=== PATIENT | male | born 1970 | race Caucasian/White ===

== ENCOUNTER 2018-04-05 14:04 | Emergency (ER) | payer MEDICAID, OTHER ==
[2018-04-05 15:17] VITALS: BP 161/102
--- NOTE | 2018-04-05 15:33 | UC ---
Lower Extremity/Ankle HPI - HPI Summary HPI Summary: 47 YO male who has noted LE edema x a week...worse the past few days Has had some cough Some slightly increased dyspnea on exertion no CP feverish about a week ago no myalgias - History of Current Complaint Chief Complaint: UCGeneralIllness Stated Complaint: SWOLLEN LEGS, FLU-LIKE SYMPTOMS Time Seen by Provider: 04/05/18 15:04 Hx Obtained From: Patient Onset/Duration: Gradual Onset, Lasting Days Severity Initially: Mild Severity Currently: Moderate Pain Intensity: 8 - chronic pain Pain Scale Used: 0-10 Numeric Aggravating Factor(s): Nothing Alleviating Factor(s): Elevation Able to Bear Weight: Yes - Allergies/Home Medications Allergies/Adverse Reactions: Allergies Allergy/AdvReac Type Severity Reaction Status Date / Time Sulfa (Sulfonamide Allergy Anaphylatic Verified 04/05/18 15:07 Antibiotics) Shock Home Medications: Home Medications Albuterol HFA INHALER* [Ventolin HFA Inhaler*] 1 puff INH Q4H PRN 04/05/18 [ History Confirmed 04/05/18] Cyclobenzaprine TAB* [Flexeril 10 MG TAB*] 10 mg PO TID PRN 04/05/18 [History Confirmed 04/05/18] Folic Acid [Kp Folic Acid] 1 mg PO DAILY 04/05/18 [History Confirmed 04/05/18] Nadolol [Corgard] 20 mg PO DAILY 04/05/18 [History Confirmed 04/05/18] Naproxen [Naprosyn 500 mg tab] 500 mg PO Q12H PRN 04/05/18 [History Confirmed ] Zolpidem Tartrate [Ambien] 10 mg PO BEDTIME PRN 04/05/18 [History Confirmed 11/14] PMH/Surg Hx/FS Hx/Imm Hx Previously Healthy: No Cardiovascular History: Hypertension Respiratory History: Asthma, Pneumonia GI/ History: Gastroesophageal Reflux, Kidney Stones Neurological History: Migraine Other History Of: Negative For: Anticoagulant Therapy - Surgical History Surgical History: Yes Surgery Procedure, Year, and Place: 1999-left knee mcl/acl reconstruction, L femur surgery. [id number]- multiple kidney stone procedures. 2006-gastric bypass - Family History Known Family History: Positive: Cardiac Disease, Hypertension, Renal Disease - Social History Alcohol Use: Rare Substance Use Type: Marijuana Smoking Status (MU): Current Every Day Smoker Type: Cigarettes Amount Used/How Often: 1/2 - 1 ppd Have You Smoked in the Last Year: Yes Cessation Counseling: Patient Advised to Stop - Immunization History Most Recent Influenza Vaccination: never Most Recent Tetanus Shot: 4-5 yrs Most Recent Pneumonia Vaccination: 5 yrs Review of Systems All Other Systems Reviewed And Are Negative: Yes Constitutional: Positive: Fatigue Skin: Positive: Negative Eyes: Positive: Negative ENT: Positive: Negative Respiratory: Positive: Cough Cardiovascular: Positive: Negative Gastrointestinal: Positive: Negative Genitourinary: Positive: Negative Motor: Positive: Negative Neurovascular: Positive: Negative Musculoskeletal: Positive: Edema Neurological: Positive: Negative Psychological: Positive: Negative Physical Exam Triage Information Reviewed: Yes Appearance: Well-Appearing, No Pain Distress, Well-Nourished Vital Signs: Initial Vital Signs Temp 97.6 F 04/05/18 15:07 Pulse 76 04/05/18 15:07 Resp 20 04/05/18 15:07 BP 161/102 04/05/18 15:07 Pulse Ox 95 04/05/18 15:07 Vital Signs Reviewed: Yes Eyes: Positive: Conjunctiva Clear ENT: Positive: Hearing grossly normal, TMs normal. Negative: Nasal congestion, Nasal drainage, Tonsillar swelling, Tonsillar exudate, Trismus, Hoarse voice, Dental tenderness, Sinus tenderness, Uvula midline Dental: Negative: Abscess @ Neck: Positive: Supple, Nontender, No Lymphadenopathy Respiratory: Positive: No respiratory distress, No accessory muscle use, Wheezing - few scatterred Cardiovascular: Positive: RRR, No Murmur Abdomen Description: Positive: Nontender, No Organomegaly, Soft. Negative: Bruit, CVA Tenderness (R), CVA Tenderness (L), Distended Bowel Sounds: Positive: Present Musculoskeletal: Positive: Edema @ - pre tibial/pitting Neurological: Positive: Alert Psychological Exam: Normal Skin Exam: Normal Diagnostics - Laboratory Diagnostic Studies Completed/Ordered: UA +++ protein - Radiology No standard instances Radiology Interpretation Completed By: Radiologist Summary of Radiographic Findings: NAD Lower Extremity Course/Dx - Differential Dx/Diagnosis Provider Diagnosis: Peripheral edema, Hypertension, Proteinuria, Smoker Discharge - Sign-Out/Discharge Documenting (check all that apply): Patient Departure All imaging exams completed and their final reports reviewed: Yes - Discharge Plan Condition: Stable Disposition: HOME Patient Education Materials: Leg Edema (ED) Referrals: Mariela Holder MD [Primary Care Provider] - As Soon As Possible Additional Instructions: stop your naproxen you have +++ protein in your urine take lasix every day for 3 days blood work pending - Billing Disposition and Condition Condition: STABLE Disposition: Home
[2018-04-05 18:33] LABS: ABS Basophils 0 10^3/ul (0-0.2); ABS Eosinophils 0.5 10^3/ul (0-0.6); ABS Lymphocytes 1.1 10^3/ul (1.0-4.8); ABS Monocytes 0.5 10^3/ul (0-0.8); ABS Nucleated RBC 0 10^3/ul; Eosinophil % 6.5 %; Hematocrit 35 % (42-52); Hemoglobin 11.7 g/dl (14.0-18.0); Mean Corpuscular HGB Conc 33 g/dl (31-36); Mean Corpuscular Hemoglobin 28 pg (27-31); Mean Corpuscular Volume 85 fL (80-94); Mean Platelet Volume 7.4 fL (7.4-10.4); Nucleated Red Blood Cells % 0; Platelet Count 444 10^3/ul (150-450); Red Blood Count 4.14 10^6/ul (4.00-5.40); Red Cell Distribution Width 18 % (10.5-15); White Blood Count 8.1 10^3/ul (3.5-10.8)
[2018-04-05 18:45] LABS: EGFR Non-African American 48.8 (>60)
--- NOTE | 2018-04-06 07:50 | UC ---
- Progress Note Progress Note: Lab work from April 05, 2018 comes back showing the patient being mildly anemic with hemoglobin of 11.7. Patient was not anemic on his last lab work I have access to which was in 2012. Creatinine is slightly elevated at 1.53. In 2013 Creatinine was normal. I have no more recent lab values. Nursing to call patient and informed him of the results and the importance of following up as soon as possible with his primary care physician to have all of this rechecked. Course/Dx - Diagnoses Provider Diagnoses: Peripheral edema, Hypertension, Proteinuria, Smoker Discharge - Sign-Out/Discharge Documenting (check all that apply): Patient Departure All imaging exams completed and their final reports reviewed: Yes - Discharge Plan Condition: Stable Disposition: HOME Prescriptions: Furosemide TAB* [Lasix TAB*] 20 mg PO DAILY #3 tab Patient Education Materials: Leg Edema (ED) Forms: *Work Release Referrals: Mariela Holder MD [Primary Care Provider] - As Soon As Possible Additional Instructions: stop your naproxen you have +++ protein in your urine take lasix every day for 3 days blood work pending - Billing Disposition and Condition Condition: STABLE Disposition: Home
== END 2018-04-05 16:15 | disposition home or self-care (01) ==
LOC: UCEAST 14:04
DX: R60.0 Localized edema (principal); I10 Essential (primary) hypertension; R80.9 Proteinuria, unspecified; J45.909 Unspecified asthma, uncomplicated; Z88.2 Allergy status to sulfonamides; F17.210 Nicotine dependence, cigarettes, uncomplicated
CPT/HCPCS: 36415; 71046; 80053; 81003; 85025; 99202; G0463

== ENCOUNTER 2019-03-01 06:30 | Inpatient (IN) | payer OTHER ==
[2019-03-01] MEDS ORDERED: Albuterol/Ipratropium NEB.SOL* Albuterol 2.5 MG/Ipratropium 0.5 MG 3 ML INH PRN ×2 (06:58→19:01)
[2019-03-01] MEDS ORDERED: NS 0.9% 500 ML* 500 ML IV ONE (07:05)
--- NOTE | 2019-03-01 07:09 | ED ---
Abdominal Pain/Male - HPI Summary HPI Summary: 48-year-old male patient appearing older than stated age presents via EMS with acute abdominal pain that woke him from sleep this morning. He reports pain starts in his groin and goes all the way up to his shoulders. He's had pain like this before however reports passing gas typically helps and he has not been able to do this yet - tried walking which typically helps but not relief. Denies fevers, chills, nausea, vomiting, diarrhea, however he then states he does vomit - mostly phlegmy emesis and gagging since bariatric surgery - does not vomit food. Last BM was yesterday however he does admit to constipation, sometimes only moving his bowels once a week. Also reports he takes up to 60 mg of oxycodone a day for migraine prophylaxis and has been on this regimen for "quite some time". In his words, has become dependent. Also reports he's been urinating well without frequency or difficulty and denies flank pain but reports "I feel dehydrated". Admits she's had "flulike symptoms" over the past couple of weeks. This includes feeling rundown and a cough, productive. Female leather stretcher says he should have come into the doctor but he thouhgt he was getting better so decided not to seek medical care. Recently he is also experienced shortness of breath with exertion. Medical visit from last year reveals similar symptoms however he had fluid in his lower extremities at that time and has not experienced any swelling recently. Other medical issues include hypertension. He has not taken his meds this morning and admits he may have missed a few doses this week. He does not recall his medications but believes he takes lisinopril. Furthermore, he has failing renal function however was recently told that this plateaued. He is unsure of what is caused this but does admit to a history of NSAID use. He also takes Lasix as he was found to have fluid in his lower extremities last year. He is unsure if he has CHF and reports he has not had an EKG since his bariatric surgery in 2006 - had gallbladder removed at that time as well - no complications since. He also has asthma and has used his albuterol inhaler with cough recently which is helped some. Does not use oxygen at home despite low pulse ox here - low 90s and high 80s on room air. Was on nasal cannula and still only low 90s high 80s so switched to mask where he has improved to 95%. He also reports he recently ran out of anxiety medication, Lorazepam - takes 1 mg up to 4 x day but only PRN (not a daily med). Typically smokes cigarettes daily and marijuana most days. The latter he reports helps with his anxiety and pain from recent hand injury -had an open fx of his Rt index finger repaired by Dr. Casanova. Pin in place and wearing splint but reports this is healing well - no erythema, no swelling, no d/c. - History of Current Complaint Chief Complaint: EDAbdPain Stated Complaint: STOMACH PAIN PER EMS Time Seen by Provider: 03/01/19 06:42 Hx Obtained From: Patient, Family/Chief Dog License Inspector - female leather stretcher - Preethi Pain Intensity: 9 - Allergies/Home Medications Allergies/Adverse Reactions: Allergies Allergy/AdvReac Type Severity Reaction Status Date / Time Sulfa (Sulfonamide Allergy Anaphylatic Verified 04/05/18 15:07 Antibiotics) Shock PMH/Surg Hx/FS Hx/Imm Hx Previously Healthy: No Endocrine/Hematology History: Reports: Hx Anemia Denies: Hx Anticoagulant Therapy, Hx Blood Disorders, Hx Blood Transfusions, Hx Bone Marrow Disease, Hx Diabetes, Hx Systemic Lupus Erythematosus, Hx Sickle Cell Disease, Hx Thyroid Disease, Hx Unexplained Bleeding, Other Endocrine/ Hematological Disorders Cardiovascular History: Reports: Hx Hypertension - on meds, Other Cardiovascular Problems/Disorders - LE edema of unknown cause Respiratory History: Reports: Hx Asthma Denies: Hx Chronic Bronchitis, Hx Chronic Obstructive Pulmonary Disease (COPD ), Hx Cystic Fibrosis, Hx Lung Cancer, Hx Pleural Effusion, Hx Pneumonia, Hx Pulmonary Edema, Hx Pulmonary Embolism, Hx Seasonal Allergies, Hx Sleep Apnea, Other Respiratory Problems/Disorders GI History: Reports: Hx Gall Bladder Disease - cholecystectomy 2006, Hx Gastroesophageal Reflux Disease, Hx Irritable Bowel - from gastric bypass, Other GI Disorders - s/p Bariatric surgery in 2006 Denies: Hx Cirrhosis, Hx Crohn's Disease, Hx Diverticulosis, Hx Gastrointestinal Bleed, Hx Hiatal Hernia, Hx Jaundice, Hx Obstructive Bowel, Hx Ileostomy, Hx Pyloric Stenosis, Hx Ulcer History: Reports: Hx Kidney Stones Denies: Hx Acute Renal Failure, Hx Benign Prostatic Hyperplasia, Hx Chronic Renal Failure, Hx Dialysis, Hx Kidney Infection, Other Problems/Disorders Musculoskeletal History: Reports: Hx Arthritis - knees, hips, and joints, Hx Back Problems - lower and upper back pain Denies: Hx Bursitis, Hx Congenital Bone Abnormalities, Hx Fibromyalgia, Hx Gout, Hx Orthopedic Injury, Hx Osteoporosis, Hx Scoliosis, Hx Tendonitis Sensory History: Reports: Hx Contacts or Glasses, Other Sensory Impairments Denies: Hx Cataracts, Hx Eye Injury, Hx Eye Prosthesis, Hx Glaucoma, Hx Legally Blind, Hx Macular Degeneration, Hx Vision Problem, Hx Deafness, Hx Hearing Aid, Hx Hearing Problem Opthamlomology History: Reports: Hx Contacts or Glasses, Other Sensory Impairments Denies: Hx Cataracts, Hx Eye Injury, Hx Eye Prosthesis, Hx Glaucoma, Hx Legally Blind, Hx Macular Degeneration, Hx Vision Problem Neurological History: Reports: Hx Migraine - daily opiates for prophylaxis Denies: Hx Dementia, Hx Developmental Delay, Hx Nerve Disease, Hx Seizures, Hx Spinal Cord Injury, Hx Transient Ischemic Attacks (TIA), Other Neuro Impairments/Disorders Psychiatric History: Reports: Hx Anxiety - on lorazepam, Other Psychiatric Issues/Disorders - opiate dependence, physician rx'd Denies: Hx Attention Deficit Hyperactivity Disorder, Hx Eating Disorder, Hx Depression, Hx Panic Disorder, Hx Post Traumatic Stress Disorder, Hx Inpatient Treatment, Hx Community Mental Health Tx, Hx Schizophrenia, Hx Bipolar Disorder , Hx Suicide Attempt, Hx of Violent Episodes Against Others, Hx Substance Abuse - Surgical History Surgery Procedure, Year, and Place: 1999-left knee mcl/acl reconstruction, L femur surgery. [id number]- multiple kidney stone procedures. 2006-gastric bypass + cholecystectomy Hx Anesthesia Reactions: No Infectious Disease History: No Infectious Disease History: Denies: Hx Hepatitis, Hx Tuberculosis, History Other Infectious Disease, Traveled Outside the [place] in Last 30 Days - Family History Known Family History: Positive: Cardiac Disease, Hypertension, Renal Disease - Social History Alcohol Use: Rare Substance Use Type: Reports: Marijuana Smoking Status (MU): Current Every Day Smoker Type: Cigarettes Amount Used/How Often: 1/2 - 1 ppd Have You Smoked in the Last Year: Yes Review of Systems Constitutional: Negative Negative: Fever, Chills, Fatigue Eyes: Negative ENT: Negative Cardiovascular: Negative Respiratory: Other - BEARD Positive: Cough Positive: Abdominal Pain. Negative: Vomiting, Diarrhea, Nausea Genitourinary: Negative Musculoskeletal: Negative Negative: Edema Skin: Negative Neurological: Negative Positive: Anxious - mild All Other Systems Reviewed And Are Negative: Yes Physical Exam Triage Information Reviewed: Yes Vital Signs On Initial Exam: Initial Vitals Temp Pulse Resp BP Pulse Ox 96.5 F 113 22 182/121 90 03/01/19 06:38 03/01/19 06:38 03/01/19 06:38 03/01/19 06:38 03/01/19 06:38 Vital Signs Reviewed: Yes Appearance: Positive: Pain Distress - appears uncomfortable Skin: Positive: Warm, Dry, Other - generalized pallor - lips dry and cracked; abrasion to pinna and bandage/splint on RT hand - removed and reveals healing scar tissue on Rt index finger (NOTE: previous area of fracture - no erythema, no edema, no streaking, no drainage) Head/Face: Positive: Normal Head/Face Inspection Eyes: Positive: Normal, EOMI, RANDI, Conjunctiva Clear Neck: Positive: Supple, Nontender Respiratory/Lung Sounds: Positive: Decreased Breath Sounds - difficult to say if from poor effort as pt is breathing normally but deep breathes are not heard well and this triggers pain. Negative: Stridor, Tracheal Deviation, Wheezes, Unable to speak in full sentences, Fatigue Cardiovascular: Positive: RRR, Pulses are Symmetrical in both Upper and Lower Extremities, S1, S2. Negative: Murmur, Rub, Leg Edema Left, Leg Edema Right Abdomen Description: Positive: Guarding, Other: - tender throughout Bowel Sounds: Positive: Absent Musculoskeletal: Positive: Normal, Strength/ROM Intact Neurological: Positive: Normal, Sensory/Motor Intact, Alert, Oriented to Person Place, Time, CN Intact II-III Psychiatric: Positive: Normal - pleasant, good historian, concerned but calm and cooperative, appropriate affect - Artur Coma Scale Best Eye Response: 4 - Spontaneous Best Motor Response: 6 - Obeys Commands Best Verbal Response: 5 - Oriented Coma Scale Total: 15 Diagnostics - Vital Signs Vital Signs Temp Pulse Resp BP Pulse Ox 03/01/19 06:38 96.5 F 113 22 182/121 90 - Laboratory Result Diagrams: 03/01/19 06:59 03/01/19 06:58 Lab Statement: Any lab studies that have been ordered have been reviewed, and results considered in the medical decision making process. Re-Evaluation - Re-Evaluation First Eval Change: Unchanged - dilaudid 1mg no change in sx Second Eval Change: Improved - pain relief w/ 2mg dialudid however this wore off abruptly - additional 2mg ordered and pt had relief again Abdominal Pain Male Course/Dx - Course Course Of Treatment: 48-year-old male patient appearing older than stated age presents with acute abdominal pain that woke him from sleep this morning. He reports this radiates from his groin all the way up to her shoulders. Other details as in history of present illness. Exam reveals guarded, rigid abdomen and poor respiratory effort due to abdominal pain but no john shortness of breath or fatigue. Initial concerns with low pulse ox and fear of overloading the patient with fluid due to pt reported poor renal function and taking Lasix without a clear history of why he is taking Lasix but believed his heart is okay. After discovering elevated white blood cell count and low BNP in the face of dry mucous membranes, tachycardia, proceeded with sepsis protocol of 30 cc/kg of IV fluids (some of this is being supplemented with bariatric protocol as patient had bariatric surgery in 2006 at admits to frequent vomiting - labs also indicate low albumin and protein levels). Broad spectrum IV anbx also ordered. CXR reveals free air - CT was called at 8:10am and requesting STAT exam w/o contrast d/t updated findings (NOTE: BUN 24, Creat 2.43). Cancelled duoneb. His first round of 1mg dilaudid was ineffective for pain relief so ordered 2mg. Discussed case with Dr. Cook. CT pending for final report before calling surgery. UPDATE 9:18am: 2MG DILAUDID reduced pain. Unfortunately pain returned and ordered an additional 2mg as pt tolerated well. Remains on 0. UPDATE: 9:36a. CT report Impression: #1 limited unenhanced exam remarkable for significant free intra-peritoneal air and moderate ascites of uncertain etiology. #2 postsurgical change of Sunny-en-Y gastric bypass and cholecystectomy. #3 probable mild colonic diverticulosis. No focal inflamed diverticulum identified. #4 retrocecal appendix contains a long segment calcified appendicolith. No gross dilatation of the appendix evident. #5 Small left greater than right dependent pleural effusions and bibasilar patchy airspace consolidation and suggestion of retained secretions of the airways. Call out to Dr. Sloan - returned call at 10:40am - will be down to see pt. Last PO intake: 6am - water and soda (6+ oz) - last solid: mashed potatoes 17: 00 last night. No known bleeding d/o and H&H stable today - will get type and screen for pre-op. ECG: sinus tachycardia @ 118 bpm, prolonged QT interval, Lt axis deviation. Asthma - no O2 use at home - controlled w/ albuterol PRN. Renal failure: BUN 25, Creat 2.43 (1.53 in 2018 - could be significantly worse today from dehydration). H/o anesthesia many times - no issues per pt. NOTE: bariatric status since 2006 - lost to follow-up and poor nutrition since - sometimes teeth fall out. Otherwise, no dental prosthetics. Pt admitted by Dr. Sloan for surgery - in stable condition at time of transition of care - Diagnoses Provider Diagnoses: Peritoneal free air Discharge ED - Sign-Out/Discharge Documenting (check all that apply): Patient Departure - Discharge Plan Condition: Guarded Disposition: ADMITTED TO [facility] - Billing Disposition and Condition Condition: GUARDED Disposition: Admitted to [facility]
[2019-03-01 07:32] LABS: ABS Basophils 0.1 10^3/ul (0-0.2); ABS Eosinophils 0.2 10^3/ul (0-0.6); ABS Lymphocytes 0.6 10^3/ul (1.0-4.8); ABS Monocytes 0.6 10^3/ul (0-0.8); ABS Neutrophils 14.9 10^3/ul (1.5-7.7); Eosinophil % 1.3 %; Hematocrit 37 % (42-52); Hemoglobin 12.2 g/dL (14.0-18.0); Lymphocyte % 3.8 %; Mean Corpuscular HGB Conc 33 g/dL (31-36); Mean Corpuscular Hemoglobin 29 pg (27-31); Mean Corpuscular Volume 87 fL (80-94); Mean Platelet Volume 6.9 fL (7.4-10.4); Nucleated Red Blood Cells % 0.1; Platelet Count 592 10^3/uL (150-450); Red Cell Distribution Width 14 % (10-15); White Blood Count 16.3 10^3/uL (3.5-10.8)
[2019-03-01] MEDS ORDERED: Simethicone TAB* 80 MG TAB.CHEW PO ONE (07:33)
[2019-03-01 07:34] LABS: Activated Partial Thrombo Time 31.5 seconds (26.0-38.0); INR 1.03 (0.82-1.09)
[2019-03-01] MEDS ORDERED: HYDROmorphone INJ* 0.5 MG/0.5 ML SYRINGE IV ONE ×4 (07:39→10:10)
[2019-03-01] MEDS ORDERED: metroNIDAZOLE IV 500 MG/100ML* 500 MG/100 ML BAG IVPB ONE (07:42)
[2019-03-01] MEDS ORDERED: Ciprofloxacin 400MG IVPREMIX(* 400 MG/200 ML BAG IVPB ONE (07:48)
[2019-03-01] MEDS ORDERED: Thiamine IV 100 MG, Folic Acid IV* 1 MG, Multiple Vitamin IV ADULT* 10 ML in NS 0.9% 10... IV ONE ×2 (07:48→08:14)
[2019-03-01 07:52] LABS: Albumin 2.5 g/dL (3.2-5.2); Calcium 7.7 mg/dL (8.6-10.3); Potassium 3.3 mmol/L (3.5-5.0); Total Bilirubin 0.3 mg/dL (0.2-1.0)
[2019-03-01 07:58] LABS: BUN/Creatinine Ratio 10.3 (8-20); C Reactive Protein 59.56 mg/L (<8.01); EGFR African American 34.5 (>60); EGFR Non-African American 28.5 (>60); Globulin 2.6 g/dL (2-4); Total Protein 5.1 g/dL (6.4-8.9)
[2019-03-01] MEDS ORDERED: Vancomycin(*) 1,000 MG VIAL IVPB SCH (08:00)
[2019-03-01] MEDS ORDERED: Vancomycin(*) 1,250 MG IV x ONCE IVPB ONE ×2 (08:00)
[2019-03-01] MEDS: NS 0.9% 1000 ML** 1,000 ML IV.FLUID IV ONE ×2 (08:00→10:06)
[2019-03-01] MEDS ORDERED: oxyCODONE/Acetamin 5/325 MG* TAB PO PRN (10:40)
--- NOTE | 2019-03-01 11:54 | HP ---
H&P (Free Text) History and Physical: CC: abdominal pain HPI: 48 yo M h/o lap gastric bypass, nephrolithiasis, HTN, anxiety, migraine, chronic opioid use, recurrent "gas bubble" pain presented to ED with severe lower abdominal pain radiating upwards and both shoulders. Pain awoke him from sleep this morning. He's had pain like this before however reports passing gas typically helps and he has not been able to do this yet - tried walking which typically helps but no relief. Denies fevers, chills, nausea, vomiting, diarrhea, constipation. Recent "flulike symptoms" over the past couple of weeks. This includes feeling rundown and a cough, productive. PMH: as above. Also has renal disease for which he sees Laboratory Sample Carrier at [place]. PSH: approximately 23 cysto/stent/lithotripsy procedures, last in 2011. LRYGB and lap anne 2006 (Dariusz Gonzalez--Dr. Campa) Meds: pt cannot recall all. Percocet 10/325 q4h prn migraine. Lisinopril. Lasix. All: sulfa SH: +tob/MJ daily; rare EtOH FH: Cardiac Disease, Hypertension, Renal Disease ROS: Constitutional: Negative: Fever, Chills, Fatigue Eyes: glasses ENT: Negative Cardiovascular: Negative Respiratory: Other - BEARD; Positive: Cough Genitourinary: Negative hematuria/dysuria; renal disease. Musculoskeletal: recent right index finger crush injury (Dr. Casanova managing) Neurological: Migraines. All Other Systems Reviewed And Are Negative PE: Vital Signs Temp 96.5 F 03/01/19 06:38 Pulse 118 03/01/19 10:19 Resp 18 03/01/19 10:14 BP 150/107 03/01/19 10:19 Pulse Ox 98 03/01/19 10:19 Intake & Output 02/28/19 03/01/19 03/01/19 18:59 06:59 18:59 Intake Total 1510 Balance 1510 Weight 170 lb Intake: IV Fluids 1510 Gen: Appears in NAD HEENT: NCAT; anicteric sclera; mmm; no amisha/rhinorrhea; poor dentition; abrasion right ear helix Neck: supple no CHAYA Chest: CTA B; reg s1s2, tachy Abd: redundant skin; no visible scars; rigid and diffusely tender; no BS. Ext: R hand splint; no cyanosis or edema. Laboratory Results - last 24 hr 03/01/19 03/01/19 03/01/19 06:58 06:58 06:59 WBC 16.3 H RBC 4.20 Hgb 12.2 L Hct 37 L MCV 87 MCH 29 MCHC 33 RDW 14 Plt Count 592 H MPV 6.9 L Neut % (Auto) 91.0 Lymph % (Auto) 3.8 Long % (Auto) 3.4 Eos % (Auto) 1.3 Baso % (Auto) 0.5 Absolute Neuts (auto) 14.9 H Absolute Lymphs (auto) 0.6 L Absolute Monos (auto) 0.6 Absolute Eos (auto) 0.2 Absolute Basos (auto) 0.1 Absolute Nucleated RBC 0.0 Nucleated RBC % 0.1 INR (Anticoag Therapy) APTT Patient Temperature ABG pH ABG pH (Temp Correct) ABG pCO2 ABG pCO2 (Temp Corrct ABG pO2 ABG pO2 (Temp Correct ABG HCO3 ABG O2 Saturation ABG Base Excess Respiration Rate O2 Delivery Device Ventilator Type Vent Mode FiO2 Inspiratory Time PEEP Pressure Support Pressure Control EPAP IPAP BiPAP Sodium 133 L Potassium 3.3 L Chloride 101 Carbon Dioxide 21 L Anion Gap 11 BUN 25 H Creatinine 2.43 H Est GFR ( Amer) 34.5 Est GFR (Non-Af Amer) 28.5 BUN/Creatinine Ratio 10.3 Glucose 140 H Lactic Acid Calcium 7.7 L Total Bilirubin 0.30 AST 16 ALT 10 Alkaline Phosphatase 94 C-Reactive Protein 59.56 H B-Natriuretic Peptide 139 H Total Protein 5.1 L Albumin 2.5 L Globulin 2.6 Albumin/Globulin Ratio 1.0 03/01/19 03/01/19 03/01/19 06:59 06:59 07:25 WBC RBC Hgb Hct MCV MCH MCHC RDW Plt Count MPV Neut % (Auto) Lymph % (Auto) Long % (Auto) Eos % (Auto) Baso % (Auto) Absolute Neuts (auto) Absolute Lymphs (auto) Absolute Monos (auto) Absolute Eos (auto) Absolute Basos (auto) Absolute Nucleated RBC Nucleated RBC % INR (Anticoag Therapy) 1.03 APTT 31.5 Patient Temperature Not Reportable ABG pH 7.40 ABG pH (Temp Correct) Not Reportable ABG pCO2 31 L ABG pCO2 (Temp Corrct Not Reportable ABG pO2 86 ABG pO2 (Temp Correct Not Reportable ABG HCO3 21.4 ABG O2 Saturation 100.0 H ABG Base Excess -4.5 L Respiration Rate Not Reportable O2 Delivery Device 10lpm oxymask Ventilator Type Not Reportable Vent Mode Not Reportable FiO2 Not Reportable Inspiratory Time Not Reportable PEEP Not Reportable Pressure Support Not Reportable Pressure Control Not Reportable EPAP Not Reportable IPAP Not Reportable BiPAP Not Reportable Sodium Potassium Chloride Carbon Dioxide Anion Gap BUN Creatinine Est GFR ( Amer) Est GFR (Non-Af Amer) BUN/Creatinine Ratio Glucose Lactic Acid 1.1 Calcium Total Bilirubin AST ALT Alkaline Phosphatase C-Reactive Protein B-Natriuretic Peptide Total Protein Albumin Globulin Albumin/Globulin Ratio 03/01/19 11:03 WBC RBC Hgb Hct MCV MCH MCHC RDW Plt Count MPV Neut % (Auto) Lymph % (Auto) Long % (Auto) Eos % (Auto) Baso % (Auto) Absolute Neuts (auto) Absolute Lymphs (auto) Absolute Monos (auto) Absolute Eos (auto) Absolute Basos (auto) Absolute Nucleated RBC Nucleated RBC % INR (Anticoag Therapy) APTT Patient Temperature ABG pH ABG pH (Temp Correct) ABG pCO2 ABG pCO2 (Temp Corrct ABG pO2 ABG pO2 (Temp Correct ABG HCO3 ABG O2 Saturation ABG Base Excess Respiration Rate O2 Delivery Device Ventilator Type Vent Mode FiO2 Inspiratory Time PEEP Pressure Support Pressure Control EPAP IPAP BiPAP Sodium Potassium Chloride Carbon Dioxide Anion Gap BUN Creatinine Est GFR ( Amer) Est GFR (Non-Af Amer) BUN/Creatinine Ratio Glucose Lactic Acid 1.1 Calcium Total Bilirubin AST ALT Alkaline Phosphatase C-Reactive Protein B-Natriuretic Peptide Total Protein Albumin Globulin Albumin/Globulin Ratio CT non-contrast, Abd/Pel images reviewed and large amt free air with free fluid. CXR: free air; atalectasis. Impression: 48 yo M with h/o gastric bypass, sudden onset abdominal pain with findings of perforated viscus. Plan: To OR for exploration and other procedures as indicated (laparoscopic, possible open). NPO. IVF. Abx (given by ED). Discussed with patient and fiancee the diagnosis and management options and recommended above. Explained that possible sources could be large or small sarah and surgery may include repair, resection and/or ostomy formation. Risks explained including, not limited to: bleeding, infection, pain, scarring, blood clots, pneumonia, visceral injury, prolonged ventilator, and risks of GETA. All questions answered. He stated understanding and agreed to proceed.
[2019-03-01] MEDS: HYDROmorphone INJ* 0.5 MG/0.5 ML SYRINGE IV SLOW PU PRN ×2 (12:38→20:47)
[2019-03-01] MEDS ORDERED: HYDROmorphone INJ1* 1 MG/ML SYRINGE ONE ×3 (12:39→21:35)
[2019-03-01] MEDS ORDERED: Dexamethasone IV* 4 MG/ML 1 ML (4 MG) ONE (13:44)
[2019-03-01] MEDS ORDERED: Propofol* 10 MG/ML 20 ML BTL ONE (13:44)
[2019-03-01] MEDS ORDERED: Ondansetron INJ* 2 MG/ML VIAL ONE (13:44)
[2019-03-01] MEDS ORDERED: Lidocaine 2% PF * 5 ML VIAL ONE (13:44)
[2019-03-01] MEDS ORDERED: fentaNYL* 50 MCG/ML 5 ML VIAL (250 MCG VIAL) ONE ×3 (13:45→16:11)
[2019-03-01] MEDS ORDERED: Rocuronium* 10 MG/ML VIAL ONE ×2 (13:45→15:33)
[2019-03-01] MEDS ORDERED: Midazolam* 1 MG/ML 5 ML VIAL (5 MG) ONE (13:45)
[2019-03-01] MEDS ORDERED: Bupivacaine 0.5%* 50 ML MDV VIAL ONE (14:41)
[2019-03-01] MEDS ORDERED: Bupivacaine 0.25% SDV PF* 10 ML VIAL INJ ONE (14:41)
[2019-03-01] MEDS ORDERED: Midazolam* 1 MG/ML 2 ML VIAL (2 MG) ONE (14:52)
[2019-03-01] MEDS ORDERED: KETAMINE HCL* 50 MG/ML 10 ML VIAL ONE (15:00)
[2019-03-01] MEDS ORDERED: Labetalol IV* 5 MG/ML 20 ML VIAL ONE (15:00)
[2019-03-01] MEDS ORDERED: Levalbuterol HFA INHALER* 1 PUFF MDI ONE (15:10)
[2019-03-01] MEDS ORDERED: Glycopyrrolate IV* 0.2 MG/ML 1 ML VIAL ONE (17:45)
[2019-03-01] MEDS ORDERED: Neostigmine Methylsulfate* 1 MG/ML 10 ML VIAL (1 mg/ml) ONE (17:45)
[2019-03-01] MEDS ORDERED: HYDROmorphone INJ1* 1 MG/ML SYRINGE IV PRN (18:15)
[2019-03-01] MEDS ORDERED: Levalbuterol 0.63MG/3ML NEB* UNIT OF USE INH PRN (18:15)
[2019-03-01] MEDS ORDERED: Naloxone* 0.4 MG/ML 1 ML VIAL IV PRN (18:15)
[2019-03-01] MEDS ORDERED: DiMENhydriNATE IV* 50 MG/ML VIAL IV PUSH PRN (18:15)
--- NOTE | 2019-03-01 18:17 | OP ---
Operative Report - Blank - Operative Report Date of Operation: 03/01/19 Note: PREOP DX:perforated viscus POSTOP DX:perforated marginal ulcer PROC:lap repair of above with omental patch, lap G-tube SURG:[place] ASSIST:None ANES:GET; Toal EBL:<20 ml IVF:3.5 L cryst SPEC:none DRAIN:7mm ED; 18Fr. G-tube COMPL:None COND:Stable; extubated=>PACU FINDINGS: Diffuse peritonitis; 5 mm perforation on Sunny limb anteriorly, s/p gastric bypass. G-tube into gastric remnant.
[2019-03-01] MEDS ORDERED: hydrALAZINE IV* 20 MG/ML VIAL ONE (18:44)
[2019-03-01] MEDS: fentaNYL* 50 MCG/ML 2 ML VIAL (100 MCG VIAL) IV PRN ×4 (18:49→19:23)
[2019-03-01] MEDS ORDERED: fentaNYL* 50 MCG/ML 2 ML VIAL (100 MCG VIAL) ONE ×2 (18:50→19:17)
[2019-03-01] MEDS: Pantoprazole IV* 40 MG IV SCH (20:26)
[2019-03-01] MEDS: KCL 20 MEQ/100 ML IVPREMIX* 20 MEQ/100 ML BAG IV SCH ×2 (20:26→23:09)
[2019-03-01] MEDS: Metoprolol Tartrate IV* 1 MG/ML 5 ML VIAL IV SCH (20:27)
[2019-03-01] MEDS: Lactated Ringers 1000 ML Bag* 1,000 ML IV SCH (20:32)
[2019-03-01 21:05] LABS: Influenza A Molecular NEGATIVE (Negative); Influenza B Molecular NEGATIVE (Negative)
[2019-03-01] MEDS ORDERED: HYDROmorphone INJ* 0.5 MG/0.5 ML SYRINGE IV SLOW PU PRN (21:07)
[2019-03-01] MEDS: metroNIDAZOLE IV 500 MG/100ML* 500 MG/100 ML BAG IVPB SCH (21:17)
[2019-03-01] MEDS: Ciprofloxacin 400MG IVPREMIX(* 400 MG/200 ML BAG IVPB SCH (21:18)
[2019-03-01] MEDS: hydrALAZINE IV* 20 MG/ML VIAL IV SLOW PU PRN (22:11)
[2019-03-01] MEDS: HYDROmorphone INJ1* 1 MG/ML SYRINGE IV SLOW PU PRN (23:10)
--- NOTE | 2019-03-02 00:03 | CONS ---
CC: Dr. Sesay; Dr. Holder * CONSULTATION REPORT: DATE OF CONSULT: 03/01/19 PRIMARY CARE PROVIDER: Dr. Holder. REQUESTING PHYSICIAN: Dr. Sesay from General Surgery. REASON FOR CONSULT: Medical co-management of patient, status post perforated gastric ulcer repair. CHIEF COMPLAINT: Abdominal pain. HISTORY OF PRESENT ILLNESS: Jerson Peters is a 48-year-old male who in the year of 2005 was status post gastric bypass surgery. He also has history of chronic migraines for which he is on chronic narcotics as well as hypertension. Today in the morning at around 5 a.m., he developed sudden onset of severe abdominal pain, for which he came into the ED for evaluation. Here, he was noted to have perforated viscous on the CT evaluation. Dr. Sesay performed laparoscopic repair of his perforated gastric ulcer. Postoperatively, the patient has a ED drain in his one of his abdominal incisions. Otherwise, he is seen with his girlfriend, Preethi. He is currently very confused and a very poor historian. His girlfriend is able to give me some of the required information. Please note that the information included in this consult is very scant and may be not complete. PAST MEDICAL HISTORY: 1. History of chronic migraines, on narcotics. 2. Status post right index finger fracture and that appears to have given him "complex fracture" that happened 3 weeks ago. Currently, the patient is in splint. 3. History of a chronic renal disease, for which the patient sees a certified massage therapist in [place]. 4. History of nephrolithiasis, for which the patient had stent and lithotripsy procedures in the past. 5. Status post gastric bypass in 2005. 6. History of hypertension. MEDICATIONS: Incomplete and not confirmed: 1. For his hypertension, the patient last been taking lisinopril 40 mg daily. 2. Hydrochlorothiazide 25 mg daily. 3. Nadolol 20 mg daily. Those are not complete. From the external pharmacy report, I was able to get: 1. Loratadine 10 mg daily. 2. Fioricet 1 tablet on a p.r.n. basis. 3. Flexeril 10 mg 3 times a day. 4. Protonix 40 mg b.i.d. 5. Albuterol inhaler on p.r.n. basis. 6. Oxycodone with acetaminophen 10/325 mg every 4 hours p.r.n. 7. Lorazepam 1 mg every 6 hours p.r.n. 8. Hydroxyzine 25 mg each day after dinner. 9. Lasix 40 mg daily. In addition to Lasix 40 mg daily for additional 5-pound weight gain. 10. Ultram 50 mg 1 to 2 tablets every 6 hours p.r.n. ALLERGIES: Include SULFA ANTIBIOTICS. SOCIAL HISTORY: The patient started smoking in his teenage years. He quit a week ago. He has history of 1 pack per day smoking. He denies any alcohol or drug use. He lives with his girlfriend, Preethi, who is his surrogate. 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 The patient has injured his index finger while doing his work and he has not been able to participate in that for the past 3 weeks. REVIEW OF SYSTEMS: Please see history of present illness. In addition to the above mentioned, the patient's girlfriend stated that he developed upper respiratory infection approximately 2 weeks ago and has been coughing intermittently. His abdomen was hurting, but he thought that it was due to the cough. He had not had any fevers. At this time, he is not sure if he was coughing up any phlegm. All the remaining 12 systems were basically not reviewed since the patient was unable to contribute due to being very confused after his anesthesia. PHYSICAL EXAM: Vital Signs: Blood pressure 172/112, heart rate of 83 and regular, respiratory rate of 25, oxygen saturation 95% on 4 L of oxygen via nasal cannula, temperature of 96.8. General: The patient is a very pleasant 48 -year-old male who is in no acute distress. The patient is oriented to self. He does not know where he is. He keeps on repeating the same questions over and over again. He is clearly confused after the anesthesia yet. He recognizes his girlfriend, Preethi. HEENT: Head atraumatic, normocephalic. Eyes : Pupils are equal and reactive to light and accommodation. Oropharynx is clear. Mucosa moist. Neck: Supple. No JVD. No bruits bilaterally. Cardiovascular: Regular rate and rhythm. No murmur. Respiratory: Clear to auscultation bilaterally. Abdomen: Postoperative incision covered with Steri- Strips and dressings that were not removed for inspection. One ED drain is present. The patient is still from anesthesia. Abdominal evaluation is soft and nontender. Bowel sounds are basically absent in all 4 quadrants. Extremities: There is no edema. Pulses are +2 bilaterally. No clubbing or cyanosis. Right index finger is in a splint, which was not removed for evaluation. DIAGNOSTIC STUDIES/LAB DATA: Laboratory data, white blood cell count of 16.3, hemoglobin of 12.2, hematocrit 37, platelets of 192. Sodium is 132, potassium 3.3, chloride 101, carbon dioxide 21, BUN was 25, creatinine 2.43. Liver function tests were unremarkable. Bilirubin total of 0.3, lactic acid of 1.1, C -reactive protein of 59. ABG showed pH of 7.40, pCO2 of 31, pO2 of 86, bicarb of 21. CT abdomen and pelvis, impression: "Limited unenhanced exam remarkable for significant and free intraperitoneal air and moderate ascites of uncertain etiology. Postsurgical changes of Sunny-en-Y bypass and cholecystectomy. Probable mild colonic diverticulosis, no focal inflamed diverticula are identified. Retrocecal appendix contains a long segment calcified appendicolith. No gross dilatation of the appendix is evident." Portable chest x-ray, impression, "Free intraperitoneal air concerning for bowel perforation. Suboptimal inspiration for this patient with associated subsegmental atelectasis". The patient's EKG shows sinus tachycardia with heart rate of 118 beats per minute with left axis deviation. ASSESSMENT AND PLAN: 1. In regards to the patient's perforated viscous, Dr. Sesay just operated on the patient and repaired it. The surgery was laparoscopic. Postoperatively , when the patient was extubated, he was markedly hypertensive. He is going to be admitted to the intensive care unit for further blood pressure monitoring. He is going to be continued on Protonix as well as Cipro and Flagyl started by surgical service. 2. In regards to patient's hypertension, he is currently n.p.o. I will place the patient on scheduled dose of Lopressor IV in addition to hydralazine. He may need further blood pressure management and we will see how he fares with that in the ICU. 3. Acute renal failure. It appears that his creatinine in the past that we have available from the year 2018 was 1.5. Current is 2.4. I suspect this is acute renal failure from his bowel perforation and sepsis of the gut. It seems that the patient came into the hospital hypertensive. We will continue intravenous fluids and following up with his kidney function. I will also obtain urinalysis. 4. The patient has history of smoking and he had been on albuterol inhaler on a p.r.n. basis. I suspect he has underlying COPD, although clinically he actually sounds clear on his exam. I will place him on DuoNeb on an as needed basis. 5. For DVT prophylaxis, the patient is going to be placed on SCDs. I will leave it up to the primary service and Surgery if the patient will be able to be placed on anticoagulants for DVT prophylaxis. 6. Code status is full. His surrogate is his girlfriend, Preethi. TIME SPENT: Approximately 65 minutes were spent on the consultation of this patient, more than half that time was spent [id number] with the patient during the interview and physical exam. Thank you very much. [id number] #: [id number] PRACHI
[2019-03-02] MEDS: HYDROmorphone INJ1* 1 MG/ML SYRINGE IV SLOW PU PRN ×17 (00:13→22:18)
[2019-03-02 00:53] LABS: Urine Appearance Cloudy; Urine Bacteria Absent (Absent); Urine Bilirubin Negative (Negative); Urine Blood 2+ (Negative); Urine Color Yellow; Urine Glucose 1+(50 mg/dL) (Negative); Urine Ketones Negative (Negative); Urine Nitrite Negative (Negative); Urine Protein 3+(>=500 mg/dL) (Negative); Urine Red Blood Cell 3+(>10/hpf) (Absent); Urine Specific Gravity 1.013 (1.010-1.030); Urine Urobilinogen Negative (Negative); Urine White Blood Cell 1+(6-10/hpf) (Absent)
[2019-03-02] MEDS: hydrALAZINE IV* 20 MG/ML VIAL IV SLOW PU PRN ×5 (01:14→22:17)
[2019-03-02] MEDS: Metoprolol Tartrate IV* 1 MG/ML 5 ML VIAL IV SCH ×5 (01:26→17:56)
[2019-03-02] MEDS ORDERED: LORazepam INJ* 2 MG/ML 1 ML VIAL IV PUSH ONE (01:30)
[2019-03-02] MEDS ORDERED: Lorazepam PYXIS KEY PRN ×2 (01:42→09:51)
[2019-03-02] MEDS ORDERED: hydrALAZINE IV* 20 MG/ML VIAL ONE (02:10)
[2019-03-02] MEDS: Lactated Ringers 1000 ML Bag* 1,000 ML IV SCH ×2 (02:20→09:05)
--- NOTE | 2019-03-02 02:33 | OP ---
CC: Mariela Holder MD * DATE OF OPERATION: 03/01/19 - ROOM #ICU-02 DATE OF : 68 SURGEON: Guillermo Sesay M.D. SOILS ENGINEER: None. ANESTHESIOLOGIST: Dr. Liriano. ANESTHESIA: General endotracheal. PRE-OP DIAGNOSIS: Perforated viscus. POST-OP DIAGNOSIS: Perforated marginal ulcer. OPERATIVE PROCEDURE: Laparoscopic repair of perforated marginal ulcer with omental patch and laparoscopic gastrostomy tube placement. ESTIMATED BLOOD LOSS: Less than 20 mL. IV FLUIDS: 3.5 L of crystalloids. SPECIMEN: None. DRAINS: 7 mm Kenyon Calderón and 18-Gabonese gastrostomy tube. COMPLICATIONS: None. FINDINGS: The patient is status post laparoscopic gastric bypass and found to have an anterior perforation of the Sunny limb consistent with a marginal ulcer. There was diffuse peritonitis. DESCRIPTION OF PROCEDURE: The patient was brought to the operating room, placed on the table supine. Sequential compression devices were placed on both lower extremities. General anesthesia was administered. Meyers catheter was placed. The abdomen was prepped and draped in the usual sterile fashion. The patient received appropriate intravenous antibiotics in the emergency room. After sterile prep and drape, a time-out was performed. An infraumbilical incision was created vertically and using open technique, peritoneal cavity was accessed and an 11-mm trocar was placed. Carbon dioxide was insufflated to a pressure of 15 mmHg. Under direct visualization, 5 mm trocars were placed in the right upper quadrant and left upper quadrant. Inspection of the peritoneal cavity revealed extensive murky fluid throughout the abdomen. There was fibrinous exudate focused in the area beneath the left lobe of the liver and close inspection there revealed a perforation approximately 5 mm in the jejunum of the Sunny limb. Adhesions to the undersurface of the liver were taken down sharply. The omentum adjacent to the Sunny limb on the left side was dissected free. So, that the Sunny limb could be fully visualized up to its stapled end. The edges of the ulcer were inspected and there was fibrinous exudate that was cleared away. The ulcer was closed primarily with 2-0 silk sutures and then a tongue of omentum from the right side of the gastrocolic ligament was brought up and sutured over the area of closure as well. The Sunny limb was in the antecolic, antegastric position. The remnant stomach was identified and the greater curvature was immobilized. An 18-Gabonese gastrostomy tube was placed through a separate stab wound incision in the left upper quadrant and the gastric remnant was prepared with pursestring suture, then gastrotomy was created through this with cautery and the gastric mucosa was identified. The gastric tube was then inserted into the gastric lumen and the pursestring suture was tied down. A second pursestring suture was placed around this with 2-0 silk and this was tied down as well. Then, the T-fasteners were used to secure the gastric wall surrounding the gastrostomy tube. Pressure in the abdomen was decreased in order to secure the gastric tube cinching down the T- fasteners and lastly the flange of the tube was secured around the tube with a 0- silk suture. A 7-mm ED drain was placed in the subperitoneal cavity was drawn through the right upper quadrant port and this was positioned over the area of the omental patch repair. The ED was sutured to skin with 0-silk. All the ports were removed under direct visualization. Carbon dioxide was released. Umbilical wound was closed with 0- Vicryl in interrupted fashion to approximate the fascia. Skin incisions were closed with 4-0 Monocryl in subcuticular fashion. Steri-Strips were applied. Dressings were applied to the sites. The patient was awakened and then extubated uneventfully and transferred to the recovery room in stable condition. [id number] #: [id number] PRACHI
[2019-03-02 04:39] LABS: ABS Basophils 0.1 10^3/ul (0-0.2); ABS Lymphocytes 0.8 10^3/ul (1.0-4.8); ABS Monocytes 0.8 10^3/ul (0-0.8); ABS Neutrophils 16.6 10^3/ul (1.5-7.7); Hematocrit 28 % (42-52); Hemoglobin 9.3 g/dL (14.0-18.0); Lymphocyte % 4.5 %; Mean Corpuscular HGB Conc 33 g/dL (31-36); Mean Corpuscular Hemoglobin 29 pg (27-31); Mean Corpuscular Volume 88 fL (80-94); Platelet Count 430 10^3/uL (150-450); Red Blood Count 3.23 10^6 /uL (4.18-5.48); Red Cell Distribution Width 14 % (10-15); White Blood Count 18.4 10^3/uL (3.5-10.8)
[2019-03-02 04:47] LABS: BUN/Creatinine Ratio 10.7 (8-20); Calcium 7.3 mg/dL (8.6-10.3); EGFR African American 34.5 (>60); EGFR Non-African American 28.5 (>60); Potassium 3.6 mmol/L (3.5-5.0)
[2019-03-02] MEDS: metroNIDAZOLE IV 500 MG/100ML* 500 MG/100 ML BAG IVPB SCH ×3 (05:08→21:24)
[2019-03-02] MEDS: Ciprofloxacin 400MG IVPREMIX(* 400 MG/200 ML BAG IVPB SCH ×2 (08:15→21:24)
[2019-03-02] MEDS ORDERED: Metoprolol Tartrate IV* 1 MG/ML 5 ML VIAL IV ONE (09:30)
--- NOTE | 2019-03-02 10:23 | PN ---
Subjective Date of Service: 03/02/19 Interval History: Pt c/o postoperative pain that "comes and goes" and anxiety. Has not passed flatus yet Objective Active Medications: Albuterol/Ipratropium (Duoneb (Albuterol 2.5 Mg/Ipratropium 0.5 Mg)) 1 neb INH Q4H PRN PRN Reason: SOB/WHEEZING Amlodipine Besylate (Norvasc Tab*) 10 mg .SEE ORDER DAILY [facility] Hydralazine HCl (Apresoline Iv*) 10 mg IV SLOW PU Q4H PRN PRN Reason: BLOOD PRESSURE Last Admin: 03/02/19 07:40 Dose: 10 mg Hydromorphone HCl (Dilaudid Inj1s*) 1 mg IV SLOW PU Q1H PRN PRN Reason: PAIN - SEVERE Last Admin: 03/02/19 09:08 Dose: 1 mg Lactated Ringer's (Lactated Ringers 1000 Ml Bag*) 1,000 mls @ 150 mls/hr IV PER RATE [facility] Last Admin: 03/02/19 09:05 Dose: 150 mls/hr Ciprofloxacin/Dextrose (Cipro 400 Mg Ivpremix(*)) 400 mg in 200 mls @ 200 mls/ hr IVPB Q12H [facility] Last Admin: 03/02/19 08:15 Dose: 200 mls/hr Metronidazole/Sodium Chloride (Flagyl 500 Mg Ivpb*) 500 mg in 100 mls @ 100 mls /hr IVPB Q8H [facility] Last Admin: 03/02/19 05:08 Dose: 100 mls/hr Lorazepam (Ativan Inj*) 0.5 mg IV PUSH Q4H PRN PRN Reason: ANXIETY Metoprolol Tartrate (Lopressor Iv*) 10 mg IV 0000,0600,1200,1800 [facility] Last Admin: 03/02/19 09:37 Dose: 10 mg Miscellaneous (Ativan Pyxis Banks) 1 ea N/A .PYXIS BANKS PRN PRN Reason: PER PROTOCOL Miscellaneous (Ativan Pyxis Banks) 1 ea N/A .ATIVAN IV BANKS PRN PRN Reason: PYXIS BANKS Pantoprazole Sodium (Protonix Iv*) 40 mg IV Q24H [facility] Last Admin: 03/01/19 20:26 Dose: 40 mg Vital Signs - 8 hr 03/02/19 03/02/1903/02/19 02:30 02:36 03:00 Temperature Pulse Rate 97 101 Respiratory 17 18 17 Rate Blood Pressure 166/97 162/96 (mmHg) O2 Sat by Pulse 96 95 Oximetry 03/02/19 03/02/19 03/02/19 03:16 03:30 03:47 Temperature 98.2 F Pulse Rate 98 Respiratory 16 18 Rate Blood Pressure 164/97 (mmHg) O2 Sat by Pulse 95 Oximetry 03/02/19 03/02/19 03/02/19 04:00 04:30 04:44 Temperature Pulse Rate 102 100 Respiratory 18 18 18 Rate Blood Pressure 167/98 149/95 (mmHg) O2 Sat by Pulse 94 94 Oximetry 03/02/19 03/02/19 03/02/19 05:00 05:30 05:54 Temperature Pulse Rate 98 91 Respiratory 16 15 16 Rate Blood Pressure 156/97 149/101 (mmHg) O2 Sat by Pulse 95 96 Oximetry 03/02/19 03/02/19 03/02/19 06:00 06:30 07:00 Temperature Pulse Rate 98 91 101 Respiratory 15 14 17 Rate Blood Pressure 173/107 159/103 172/100 (mmHg) O2 Sat by Pulse 95 95 95 Oximetry 03/02/19 03/02/19 03/02/19 07:30 07:31 07:35 Temperature 97.7 F Pulse Rate 99 92 Respiratory 19 15 Rate Blood Pressure 174/106 182/107 (mmHg) O2 Sat by Pulse 96 95 Oximetry 03/02/19 03/02/19 03/02/19 07:40 07:48 08:00 Temperature Pulse Rate 96 97 Respiratory 16 18 16 Rate Blood Pressure 174/113 171/105 (mmHg) O2 Sat by Pulse 95 95 Oximetry 03/02/19 03/02/19 03/02/19 08:30 09:00 09:08 Temperature Pulse Rate 98 100 Respiratory 15 16 18 Rate Blood Pressure 173/100 173/104 (mmHg) O2 Sat by Pulse 96 95 Oximetry 03/02/19 09:30 Temperature Pulse Rate 99 Respiratory 15 Rate Blood Pressure 172/107 (mmHg) O2 Sat by Pulse 95 Oximetry Oxygen Devices in Use Now: Nasal Cannula Appearance: 48 yo M in nAD, aAOx3 Eyes: No Scleral Icterus, PERRLA Ears/Nose/Mouth/Throat: NL Teeth, Lips, Gums, Mucous Membranes Moist Neck: NL Appearance and Movements; NL JVP, Trachea Midline Respiratory: Symmetrical Chest Expansion and Respiratory Effort, - - fine bibasiliar crackles Cardiovascular: NL Sounds; No Murmurs; No JVD, RRR Abdominal: - - soft, diffusely tender, BS hypoaxctive but present in all quadrants, no rebound, no guarding. ED in place G tube in placce. Post op incisions x 4 steristripped Extremities: - - +1 pitting pedal edema Skin: No Nodules or Sclerosis Neurological: Alert and Oriented x 3, NL Muscle Strength and Tone Result Diagrams: 03/02/19 04:24 03/02/19 04:24 Microbiology and Other Data: Microbiology 03/01/19 06:59 Aerobic Blood Culture - Preliminary Blood Venous No Growth Day 1 Anaerobic Blood Culture - Preliminary No Growth Day 1 03/01/19 20:30 Nasal Screen MRSA (PCR) - Final Nasal Mrsa Not Detected Assess/Plan/Problems-Billing Assessment: 48 yo M with h/o chronic pain, HTN, CKD stage 3, gastric bypass, chronic leg edema presents with gastric ulcer perforation, taken urgently for laparoscopic repair by DR. Sesay on 03/01/19 - Patient Problems (1) Bowel perforation Comment: s/p perf gastric ulcer repair on 03/01/19 G tube and IP in place Post op doing well OK with transfer to [facility] cont Flagyl/cipro as per surgery Cont Protonix IV for h/o gastric ulcer (2) HTN (hypertension) Comment: uncontrolled Off PO meds, but can start placing tabs via G tube crushed will restart Norvasc cont NILE lopressor IV and hydralazine prn (3) CKD (chronic kidney disease) stage 3, GFR 30-59 ml/min Comment: creat baseline 1.5 in 2018, now at 2.4-likely due to ATN secondary to bowel perforation Cont to monitor bicarb low today -suspect due to IVF (4) Anxiety Comment: on hydroxizine at home started Ativan IV prn (5) Postoperative anemia due to acute blood loss Comment: due to a combination of intraop blood loss and dilution cont to observe, no signs of acute bleed (6) DVT prophylaxis Comment: SCD's Status and Disposition: Medicine consult, will follow
[2019-03-02] MEDS: LORazepam INJ* 2 MG/ML 1 ML VIAL IV PUSH PRN ×3 (10:39→21:46)
[2019-03-02] MEDS: amLODIPine TAB* 5 MG SCH (10:39)
--- NOTE | 2019-03-02 10:58 | PN ---
Progress Note - Progress Note Date of Service: 03/02/19 SOAP: Subjective: C/o abdominal pain mostly at G-tube site. No N/V. Pain controlled with dilaudid. Surgical findings discussed. Objective: Vital Signs Temp 97.7 F 03/02/19 07:31 Pulse 99 03/02/19 09:30 Resp 16 03/02/19 10:50 BP 172/107 03/02/19 09:30 Pulse Ox 95 03/02/19 09:30 Gen: NAD Abd: dressings and tubes intact; ND; tender throughout; ED serous. Intake & Output 03/01/19 03/02/19 03/02/19 19:59 06:59 18:59 Intake Total Output Total 210 Balance -210 Weight Intake: IV Fluids LR NS IVPB ABX KCl Output: ED #1 Meyers 210 Laboratory Results - last 24 hr 03/01/19 03/01/19 03/02/19 06:58 20:30 00:30 WBC RBC Hgb Hct MCV MCH MCHC RDW Plt Count MPV Neut % (Auto) Lymph % (Auto) Ray % (Auto) Eos % (Auto) Baso % (Auto) Absolute Neuts (auto) Absolute Lymphs (auto) Absolute Monos (auto) Absolute Eos (auto) Absolute Basos (auto) Absolute Nucleated RBC Nucleated RBC % Sodium Potassium Chloride Carbon Dioxide Anion Gap BUN Creatinine Est GFR ( Amer) Est GFR (Non-Af Amer) BUN/Creatinine Ratio Glucose Calcium Urine Color Yellow Urine Appearance Cloudy Urine pH 5.0 Ur Specific [place] 1.013 Urine Protein 3+(>=500 mg/dl) A Urine Ketones Negative Urine Blood 2+ A Urine Nitrate Negative Urine Bilirubin Negative Urine Urobilinogen Negative Ur Leukocyte Esterase Negative Urine WBC (Auto) 1+(6-10/hpf) A Urine RBC (Auto) 3+(>10/hpf) A Urine Bacteria Absent Urine Glucose 1+(50 mg/dl) A Influenza A (Rapid) Negative Influenza B (Rapid) Negative Blood Type A Negative Antibody Screen 03/02/19 03/02/19 03/02/19 04:24 04:24 04:24 WBC 18.4 H RBC 3.23 L Hgb 9.3 L Hct 28 L MCV 88 MCH 29 MCHC 33 RDW 14 Plt Count 430 MPV 7.0 L Neut % (Auto) 90.2 Lymph % (Auto) 4.5 Ray % (Auto) 4.5 Eos % (Auto) 0.0 Baso % (Auto) 0.8 Absolute Neuts (auto) 16.6 H Absolute Lymphs (auto) 0.8 L Absolute Monos (auto) 0.8 Absolute Eos (auto) 0.0 Absolute Basos (auto) 0.1 Absolute Nucleated RBC 0.0 Nucleated RBC % 0.0 Sodium 131 L Potassium 3.6 Chloride 106 Carbon Dioxide 18 L Anion Gap 7 BUN 26 H Creatinine 2.43 H Est GFR ( Amer) 34.5 Est GFR (Non-Af Amer) 28.5 BUN/Creatinine Ratio 10.7 Glucose 87 Calcium 7.3 L Urine Color Urine Appearance Urine pH Ur Specific [place] Urine Protein Urine Ketones Urine Blood Urine Nitrate Urine Bilirubin Urine Urobilinogen Ur Leukocyte Esterase Urine WBC (Auto) Urine RBC (Auto) Urine Bacteria Urine Glucose Influenza A (Rapid) Influenza B (Rapid) Blood Type A Negative Antibody Screen Negative Assessment: POD#1 s/p lap repair of perforated marginal ulcer/omental patch/G-tube. Doing well. Plan: Cont NPO. OK to use [email or web address] for meds. Cont abx/IVF. UGI xray tomorrow to evaluate repair. Cont ED. OK to txfr to [facility]. Appreciate Hospitalist management.
[2019-03-02] MEDS: Nitro 2% OINT* (Nitroglycerin) 1 INCH/PAK PAK TOPICAL SCH (13:59)
[2019-03-02] MEDS: Heparin VIAL(*) 5000 UNITS/ML VIAL (FIVE THOUSAND) SUBCUT SCH ×2 (14:57→21:25)
[2019-03-02] MEDS ORDERED: Ondansetron INJ* 2 MG/ML VIAL ONE (15:02)
[2019-03-02] MEDS ORDERED: Ondansetron INJ* 2 MG/ML VIAL IV PRN (15:06)
[2019-03-02] MEDS ORDERED: NADOLOL 40 MG PO SCH (16:09)
[2019-03-02] MEDS: NADOLOL 20 MG PO SCH ×2 (16:17→16:38)
[2019-03-02] MEDS: NADOLOL 40 MG PO SCH (16:30)
[2019-03-02] MEDS ORDERED: HYDROmorphone INJ1* 1 MG/ML SYRINGE IV SLOW PU ONE (16:37)
[2019-03-02] MEDS ORDERED: LORazepam INJ* 2 MG/ML 1 ML VIAL IV PUSH SCH (17:00)
[2019-03-02] MEDS: Pantoprazole IV* 40 MG IV SCH (19:50)
[2019-03-03] MEDS: Metoprolol Tartrate IV* 1 MG/ML 5 ML VIAL IV SCH ×4 (00:18→18:30)
[2019-03-03] MEDS: HYDROmorphone INJ1* 1 MG/ML SYRINGE IV SLOW PU PRN ×10 (00:20→21:40)
[2019-03-03] MEDS ORDERED: MinoXIDil TAB* 2.5 MG TAB PO SCH ×2 (02:00→09:00)
[2019-03-03] MEDS: metroNIDAZOLE IV 500 MG/100ML* 500 MG/100 ML BAG IVPB SCH ×3 (04:59→21:41)
[2019-03-03] MEDS: Heparin VIAL(*) 5000 UNITS/ML VIAL (FIVE THOUSAND) SUBCUT SCH ×4 (05:05→21:40)
[2019-03-03 05:34] LABS: ABS Basophils 0.2 10^3/ul (0-0.2); ABS Eosinophils 0.1 10^3/ul (0-0.6); ABS Lymphocytes 0.6 10^3/ul (1.0-4.8); ABS Monocytes 0.7 10^3/ul (0-0.8); ABS Neutrophils 13.2 10^3/ul (1.5-7.7); Eosinophil % 0.6 %; Hematocrit 29 % (42-52); Hemoglobin 9.7 g/dL (14.0-18.0); Lymphocyte % 3.8 %; Mean Corpuscular HGB Conc 33 g/dL (31-36); Mean Corpuscular Hemoglobin 29 pg (27-31); Mean Corpuscular Volume 88 fL (80-94); Mean Platelet Volume 6.8 fL (7.4-10.4); Platelet Count 505 10^3/uL (150-450); Red Blood Count 3.31 10^6 /uL (4.18-5.48); Red Cell Distribution Width 15 % (10-15); White Blood Count 14.7 10^3/uL (3.5-10.8)
[2019-03-03 05:52] LABS: BUN/Creatinine Ratio 10.4 (8-20); Calcium 7.5 mg/dL (8.6-10.3); EGFR African American 33.5 (>60); EGFR Non-African American 27.7 (>60); Magnesium 1.8 mg/dL (1.9-2.7); Phosphorus 4.3 mg/dL (2.5-5.0); Potassium 3.8 mmol/L (3.5-5.0)
[2019-03-03] MEDS: hydrALAZINE IV* 20 MG/ML VIAL IV SLOW PU PRN (07:04)
[2019-03-03] MEDS: Ciprofloxacin 400MG IVPREMIX(* 400 MG/200 ML BAG IVPB SCH ×2 (07:40→19:57)
--- NOTE | 2019-03-03 07:58 | PN ---
Progress Note - Progress Note Date of Service: 03/03/19 SOAP: Subjective: Pain control adequate. No complaints. Objective: Vital Signs Temp 99.8 F 03/03/19 03:16 Pulse 76 03/03/19 06:00 Resp 17 03/03/19 06:00 BP 186/107 03/03/19 06:00 Pulse Ox 95 03/03/19 06:00 Gen: sitting up in bed; NAD Abd: incisions c/d/i; no erythema; ED SS; G-tube intact; soft and diffusely tender. Intake & Output 03/02/19 03/03/19 03/03/19 18:59 06:59 18:59 Intake Total 90 Output Total 590 895 Balance -590 -805 Intake: Oral 0 Tube Feeding Flush Amount 90 Output: J Tube 120 ED #1 85 240 Urine 60 Meyers 385 595 Other: Date of Last Bowel 02/28/19 Movement Laboratory Results - last 24 hr 03/03/19 03/03/19 05:15 05:15 WBC 14.7 H RBC 3.31 L Hgb 9.7 L Hct 29 L MCV 88 MCH 29 MCHC 33 RDW 15 Plt Count 505 H D MPV 6.8 L Neut % (Auto) 89.4 Lymph % (Auto) 3.8 [place] % (Auto) 4.9 Eos % (Auto) 0.6 Baso % (Auto) 1.3 Absolute Neuts (auto) 13.2 H Absolute Lymphs (auto) 0.6 L Absolute Monos (auto) 0.7 Absolute Eos (auto) 0.1 Absolute Basos (auto) 0.2 Absolute Nucleated RBC 0.0 Nucleated RBC % 0.0 Sodium 131 L Potassium 3.8 Chloride 105 Carbon Dioxide 18 L Anion Gap 8 BUN 26 H Creatinine 2.49 H Est GFR ( Amer) 33.5 Est GFR (Non-Af Amer) 27.7 BUN/Creatinine Ratio 10.4 Glucose 78 Calcium 7.5 L Phosphorus 4.3 Magnesium 1.8 L Assessment: POD#2 s/p lap repair of perforated marginal ulcer/omental patch/G-tube. Doing well. HTN still poorly controlled. Plan: Cont abx/IVF. UGI xray. Cont ED. Appreciate Hospitalist management.
[2019-03-03] MEDS: Nitro 2% OINT* (Nitroglycerin) 1 INCH/PAK PAK TOPICAL SCH ×3 (08:19→13:18)
[2019-03-03] MEDS: LORazepam INJ* 2 MG/ML 1 ML VIAL IV PUSH PRN ×3 (08:52→20:31)
[2019-03-03] MEDS: amLODIPine TAB* 5 MG SCH (08:52)
[2019-03-03] MEDS ORDERED: cloNIDine 0.3 MG PATCH* 0.3 MG/24 HR 7 DAY PATCH TRANSDERM SCH (10:00)
--- NOTE | 2019-03-03 10:55 | PN ---
Subjective Date of Service: 03/03/19 Interval History: Pt's BP had been uncontrolled despite multiple med adjustment in the past 24H. Pt c/o continuation of post op abd pain. Meds had been given via G tube with no problems. Objective Active Medications: Albuterol/Ipratropium (Duoneb (Albuterol 2.5 Mg/Ipratropium 0.5 Mg)) 1 neb INH Q4H PRN PRN Reason: SOB/WHEEZING Amlodipine Besylate (Norvasc Tab*) 10 mg .SEE ORDER DAILY [facility] Last Admin: 03/03/19 08:52 Dose: 10 mg Clonidine HCl (Wzclawun-Bns-3 0.3 Mg Patch*) 0.3 mg TRANSDERM Q7D [facility] Last Admin: 03/03/19 10:11 Dose: 0.3 mg Heparin Sodium (Porcine) (Heparin Vial(*)) 5,000 units SUBCUT Q8HR [facility] Last Admin: 03/03/19 05:05 Dose: 5,000 units Hydralazine HCl (Apresoline Iv*) 10 mg IV SLOW PU Q4H PRN PRN Reason: BLOOD PRESSURE Last Admin: 03/03/19 07:04 Dose: 10 mg Hydromorphone HCl (Dilaudid Inj1s*) 2 mg IV SLOW PU Q1H PRN PRN Reason: PAIN - SEVERE Last Admin: 03/03/19 10:24 Dose: 2 mg Lactated Ringer's (Lactated Ringers 1000 Ml Bag*) 1,000 mls @ 150 mls/hr IV PER RATE [facility] Last Admin: 03/02/19 09:05 Dose: 150 mls/hr Ciprofloxacin/Dextrose (Cipro 400 Mg Ivpremix(*)) 400 mg in 200 mls @ 200 mls/ hr IVPB Q12H [facility] Last Admin: 03/03/19 07:40 Dose: 200 mls/hr Metronidazole/Sodium Chloride (Flagyl 500 Mg Ivpb*) 500 mg in 100 mls @ 100 mls /hr IVPB Q8H [facility] Last Admin: 03/03/19 04:59 Dose: 100 mls/hr Lorazepam (Ativan Inj*) 0.5 mg IV PUSH Q4H PRN PRN Reason: ANXIETY Last Admin: 03/03/19 08:52 Dose: 0.5 mg Lorazepam (Ativan Inj*) 0 - 3 mg IV PUSH .PER [facility] PROTOCOL [facility]; Protocol Metoprolol Tartrate (Lopressor Iv*) 10 mg IV 0000,0600,1200,1800 [facility] Last Admin: 03/03/19 05:04 Dose: 10 mg Miscellaneous (Ativan Pyxis Banks) 1 ea N/A .ATIVAN IV BANKS PRN PRN Reason: PYXIS BANKS Nadolol (Corgard Tab*) 20 mg PO DAILY@1630 [facility] Last Admin: 03/02/19 16:30 Dose: 20 mg Nitroglycerin (Nitroglycerin 2% Oint*) 1 inch TOPICAL 0800,1400 [facility]; Protocol Last Admin: 03/03/19 10:15 Dose: 1 inch Ondansetron HCl (Zofran Inj*) 4 mg IV Q6H PRN PRN Reason: NAUSEA Last Admin: 03/02/19 15:07 Dose: 4 mg Pantoprazole Sodium (Protonix Iv*) 40 mg IV Q24H [facility] Last Admin: 03/02/19 19:50 Dose: 40 mg Vital Signs - 8 hr 03/03/19 03/03/19 03/03/19 02:58 03:00 03:16 Temperature 99.8 F Pulse Rate 83 82 Respiratory 16 15 Rate Blood Pressure 169/117 184/109 (mmHg) O2 Sat by Pulse 95 95 Oximetry 03/03/19 03/03/19 03/03/19 03:30 04:00 04:30 Temperature Pulse Rate 80 77 76 Respiratory 19 17 18 Rate Blood Pressure 181/110 181/111 183/116 (mmHg) O2 Sat by Pulse 94 95 95 Oximetry 03/03/19 03/03/19 03/03/19 04:51 05:00 05:32 Temperature Pulse Rate 72 79 69 Respiratory 17 16 16 Rate Blood Pressure 184/108 181/116 172/105 (mmHg) O2 Sat by Pulse 95 95 95 Oximetry 03/03/19 03/03/19 03/03/19 06:00 07:00 08:00 Temperature 98.6 F Pulse Rate 76 72 77 Respiratory 17 17 16 Rate Blood Pressure 186/107 192/118 171/110 (mmHg) O2 Sat by Pulse 95 95 92 Oximetry 03/03/19 03/03/19 03/03/19 08:14 08:52 09:00 Temperature Pulse Rate 70 Respiratory 16 16 15 Rate Blood Pressure 174/106 (mmHg) O2 Sat by Pulse 93 Oximetry 03/03/19 03/03/19 10:06 10:24 Temperature Pulse Rate Respiratory 17 15 Rate Blood Pressure (mmHg) O2 Sat by Pulse Oximetry Oxygen Devices in Use Now: Nasal Cannula Appearance: 48 yo m in nAD, aaOx3 Eyes: No Scleral Icterus, PERRLA Ears/Nose/Mouth/Throat: NL Teeth, Lips, Gums, Mucous Membranes Moist Neck: NL Appearance and Movements; NL JVP, Trachea Midline Respiratory: Symmetrical Chest Expansion and Respiratory Effort, Clear to Auscultation Cardiovascular: NL Sounds; No Murmurs; No JVD, RRR Abdominal: - - diffuse abd tenderness, no rebound, no guarding, BS hypoactive. G tube and IP drain present Lymphatic: No Cervical Adenopathy Extremities: No Clubbing, Cyanosis, - - +1 pedal pitting edeam b/l Skin: No Nodules or Sclerosis, - - post op incisions on abd steristripped Neurological: Alert and Oriented x 3, NL Muscle Strength and Tone Result Diagrams: 03/03/19 05:15 03/03/19 05:15 Microbiology and Other Data: Microbiology 03/01/19 06:59 Aerobic Blood Culture - Preliminary Blood Venous No Growth Day 1 Anaerobic Blood Culture - Preliminary No Growth Day 1 03/01/19 20:30 Nasal Screen MRSA (PCR) - Final Nasal Mrsa Not Detected Assess/Plan/Problems-Billing Assessment: 48 yo M with h/o chronic pain, HTN, CKD stage 3, gastric bypass, chronic leg edema presents with gastric ulcer perforation, taken urgently for laparoscopic repair by DR. Sesay on 03/01/19 - Patient Problems (1) Bowel perforation Comment: s/p perf gastric ulcer repair on 03/01/19 G tube and ED in place Post op doing well cont Flagyl/cipro as per surgery Cont Protonix IV for h/o gastric ulcer (2) HTN (hypertension) Comment: uncontrolled Cont Norvasc, Nadolol via G tube. cont lopressor andf hydralazine IV. cont Nitro paste. starting Clinidine patch. Unable to transfer out of ICU due to uncontrolled HTN (3) CKD (chronic kidney disease) stage 3, GFR 30-59 ml/min Comment: creat baseline 1.5 in 2018, now at 2.4-likely due to ATN secondary to bowel perforation Cont to monitor bicarb low -suspect due to IVF (4) Anxiety Comment: on hydroxizine at home started Ativan IV prn (5) Postoperative anemia due to acute blood loss Comment: due to a combination of intraop blood loss and dilution cont to observe, no signs of acute bleed (6) DVT prophylaxis Comment: HSQ Status and Disposition: Medicine consult, will follow
[2019-03-03] MEDS ORDERED: Magnesium Sulfate 2 GM IV* 2 GM/50 ML BAG IVPB ONE (10:56)
[2019-03-03] MEDS: NADOLOL 40 MG PO SCH (16:50)
[2019-03-03] MEDS: Pantoprazole IV* 40 MG IV SCH (18:30)
[2019-03-04] MEDS: Lactated Ringers 1000 ML Bag* 1,000 ML IV SCH ×2 (01:20→18:18)
[2019-03-04] MEDS: Metoprolol Tartrate IV* 1 MG/ML 5 ML VIAL IV SCH ×5 (01:21→23:41)
[2019-03-04] MEDS: hydrALAZINE IV* 20 MG/ML VIAL IV SLOW PU PRN (05:19)
[2019-03-04] MEDS: Heparin VIAL(*) 5000 UNITS/ML VIAL (FIVE THOUSAND) SUBCUT SCH ×3 (05:20→21:45)
[2019-03-04] MEDS: metroNIDAZOLE IV 500 MG/100ML* 500 MG/100 ML BAG IVPB SCH ×3 (05:20→21:44)
[2019-03-04] MEDS: HYDROmorphone INJ1* 1 MG/ML SYRINGE IV SLOW PU PRN ×10 (06:31→23:40)
[2019-03-04 06:36] LABS: Magnesium 2.2 mg/dL (1.9-2.7)
[2019-03-04 07:21] LABS: BUN/Creatinine Ratio 12.1 (8-20); Calcium 7.7 mg/dL (8.6-10.3); EGFR African American 31.2 (>60); EGFR Non-African American 25.8 (>60); Potassium 3.7 mmol/L (3.5-5.0)
[2019-03-04] MEDS: LORazepam INJ* 2 MG/ML 1 ML VIAL IV PUSH PRN ×3 (07:46→21:46)
[2019-03-04] MEDS: Ciprofloxacin 400MG IVPREMIX(* 400 MG/200 ML BAG IVPB SCH ×2 (07:55→20:04)
[2019-03-04] MEDS: amLODIPine TAB* 5 MG SCH (08:33)
--- NOTE | 2019-03-04 15:04 | PN ---
Progress Note - Progress Note Date of Service: 03/04/19 SOAP: Subjective: Pain controlled. Would like to drink. Objective: Vital Signs Temp 98 F 03/04/19 11:25 Pulse 71 03/04/19 11:25 Resp 16 03/04/19 14:28 BP 151/92 03/04/19 11:25 Pulse Ox 94 03/04/19 11:25 Gen: NAD Abd: Gtube intact. ED with SS o/p. Incis c/d/i/ no erythema; soft; diffusely tender. Intake & Output 03/03/19 03/04/19 03/04/19 18:59 06:59 18:59 Intake Total 2424 55 240 Output Total 225 520 150 Balance 2199 -465 90 Intake: IV Fluids 2305 LR 2305 IVPB 210 ABX 210 Oral 25 Tube Feeding 69 Tube Feeding Flush Amount 50 30 30 Output: ED #1 100 70 Urine 450 150 Meyers 125 UGI from 03/03 showed no leak. Laboratory Results - last 24 hr 03/04/19 05:49 Sodium 132 L Potassium 3.7 Chloride 105 Carbon Dioxide 18 L Anion Gap 9 BUN 32 H Creatinine 2.65 H Est GFR ( Amer) 31.2 Est GFR (Non-Af Amer) 25.8 BUN/Creatinine Ratio 12.1 Glucose 107 H Calcium 7.7 L Magnesium 2.2 Assessment: POD#3 Doing well. s/p lap repair perf marginal ulcer/omental patch/Gtube. Mod protein hector malnutrition HTN Plan: Clears. Try bolus TFs and meds via Gtube. Cont abx and ED Possible d/c in next 2-3 days.
--- NOTE | 2019-03-04 16:47 | PN ---
Subjective Date of Service: 03/04/19 Interval History: Pt feels that post op pain is controlled. He's passing flatus. Receiving tube feeds via G tube Objective Active Medications: Albuterol/Ipratropium (Duoneb (Albuterol 2.5 Mg/Ipratropium 0.5 Mg)) 1 neb INH Q4H PRN PRN Reason: SOB/WHEEZING Amlodipine Besylate (Norvasc Tab*) 10 mg .SEE ORDER DAILY [facility] Last Admin: 03/04/19 08:33 Dose: 10 mg Clonidine HCl (Jjmfwigo-Can-2 0.3 Mg Patch*) 0.3 mg TRANSDERM Q7D [facility] Last Admin: 03/03/19 10:11 Dose: 0.3 mg Heparin Sodium (Porcine) (Heparin Vial(*)) 5,000 units SUBCUT Q8HR [facility] Last Admin: 03/04/19 14:28 Dose: 5,000 units Hydralazine HCl (Apresoline Iv*) 10 mg IV SLOW PU Q4H PRN PRN Reason: BLOOD PRESSURE Last Admin: 03/04/19 05:19 Dose: 10 mg Hydromorphone HCl (Dilaudid Inj1s*) 2 mg IV SLOW PU Q1H PRN PRN Reason: PAIN - SEVERE Last Admin: 03/04/19 14:28 Dose: 2 mg Ciprofloxacin/Dextrose (Cipro 400 Mg Ivpremix(*)) 400 mg in 200 mls @ 200 mls/ hr IVPB Q12H [facility] Last Admin: 03/04/19 07:55 Dose: 200 mls/hr Metronidazole/Sodium Chloride (Flagyl 500 Mg Ivpb*) 500 mg in 100 mls @ 100 mls /hr IVPB Q8H [facility] Last Admin: 03/04/19 12:08 Dose: 100 mls/hr Lactated Ringer's (Lactated Ringers 1000 Ml Bag*) 1,000 mls @ 75 mls/hr IV PER RATE [facility] Last Admin: 03/04/19 01:20 Dose: 75 mls/hr Lorazepam (Ativan Inj*) 0.5 mg IV PUSH Q4H PRN PRN Reason: ANXIETY Last Admin: 03/04/19 12:08 Dose: 0.5 mg Metoprolol Tartrate (Lopressor Iv*) 10 mg IV 0000,0600,1200,1800 [facility] Last Admin: 03/04/19 11:31 Dose: 10 mg Miscellaneous (Ativan Pyxis Banks) 1 ea N/A .ATIVAN IV BANKS PRN PRN Reason: PYXIS BANKS Nadolol (Corgard Tab*) 20 mg PO DAILY@1630 [facility] Last Admin: 03/03/19 16:50 Dose: 20 mg Ondansetron HCl (Zofran Inj*) 4 mg IV Q6H PRN PRN Reason: NAUSEA Last Admin: 03/02/19 15:07 Dose: 4 mg Pantoprazole Sodium (Protonix Iv*) 40 mg IV Q24H [facility] Last Admin: 03/03/19 18:30 Dose: 40 mg Vital Signs - 8 hr 03/04/19 03/04/19 03/04/19 09:50 10:39 11:25 Temperature 98 F Pulse Rate 71 Respiratory 18 18 18 Rate Blood Pressure 151/92 (mmHg) O2 Sat by Pulse 94 Oximetry 03/04/19 03/04/19 03/04/19 11:26 12:08 12:15 Temperature Pulse Rate Respiratory 18 18 18 Rate Blood Pressure (mmHg) O2 Sat by Pulse Oximetry 03/04/19 03/04/19 03/04/19 12:56 12:57 14:07 Temperature Pulse Rate Respiratory 18 18 18 Rate Blood Pressure (mmHg) O2 Sat by Pulse Oximetry 03/04/19 03/04/19 03/04/19 14:28 15:43 15:58 Temperature 97.6 F Pulse Rate 70 Respiratory 16 18 16 Rate Blood Pressure 138/86 (mmHg) O2 Sat by Pulse 92 Oximetry Oxygen Devices in Use Now: None Appearance: 48 yo m in nAD, AAOx3 Eyes: No Scleral Icterus, PERRLA Ears/Nose/Mouth/Throat: NL Teeth, Lips, Gums, Mucous Membranes Moist Neck: NL Appearance and Movements; NL JVP, Trachea Midline Respiratory: Symmetrical Chest Expansion and Respiratory Effort, Clear to Auscultation Cardiovascular: NL Sounds; No Murmurs; No JVD, RRR Abdominal: - - soft, mild tenderness around G tube insertion site, BS+, no rebound Lymphatic: No Cervical Adenopathy Extremities: - - +1 pitting edema b/l Skin: No Nodules or Sclerosis, - - abd incisions well aproximated, steristripped Neurological: Alert and Oriented x 3, NL Muscle Strength and Tone Result Diagrams: 11/04/19 05:15 03/04/19 05:49 Microbiology and Other Data: Microbiology 03/01/19 06:59 Aerobic Blood Culture - Preliminary Blood Venous No Growth Day 1 Anaerobic Blood Culture - Preliminary No Growth Day 1 03/01/19 20:30 Nasal Screen MRSA (PCR) - Final Nasal Mrsa Not Detected Assess/Plan/Problems-Billing Assessment: 48 yo M with h/o chronic pain, HTN, CKD stage 3, gastric bypass, chronic leg edema presents with gastric ulcer perforation, taken urgently for laparoscopic repair by DR. Sesay on 03/01/19 - Patient Problems (1) Bowel perforation Comment: s/p perf gastric ulcer repair on 03/01/19 G tube and ED in place Post op doing well cont Flagyl/cipro as per surgery Cont Protonix IV for h/o gastric ulcer (2) HTN (hypertension) Comment: under better control Cont Norvasc, Nadolol via G tube. cont lopressor andf hydralazine IV. Clonidine patch started 03/03/19 with very good results. (3) CKD (chronic kidney disease) stage 3, GFR 30-59 ml/min Comment: creat baseline 1.5 in 2018, now at 2.4-likely due to ATN secondary to bowel perforation Cont to monitor bicarb low -suspect due to IVF (4) Anxiety Comment: on hydroxizine at home required Ativan IV prn, now off. (5) Postoperative anemia due to acute blood loss Comment: due to a combination of intraop blood loss and dilution cont to observe, no signs of acute bleed (6) DVT prophylaxis Comment: HSQ Status and Disposition: Medicine consult, will follow
[2019-03-04] MEDS: NADOLOL 40 MG PO SCH (16:49)
[2019-03-04] MEDS: Pantoprazole IV* 40 MG IV SCH (18:09)
[2019-03-05] MEDS: HYDROmorphone INJ1* 1 MG/ML SYRINGE IV SLOW PU PRN ×8 (03:18→19:47)
[2019-03-05] MEDS ORDERED: Lorazepam PYXIS KEY ONE ×2 (04:32→09:40)
[2019-03-05] MEDS: metroNIDAZOLE IV 500 MG/100ML* 500 MG/100 ML BAG IVPB SCH ×3 (04:35→21:53)
[2019-03-05] MEDS: LORazepam INJ* 2 MG/ML 1 ML VIAL IV PUSH PRN ×4 (04:37→21:51)
[2019-03-05] MEDS: Metoprolol Tartrate IV* 1 MG/ML 5 ML VIAL IV SCH (05:40)
[2019-03-05] MEDS: Heparin VIAL(*) 5000 UNITS/ML VIAL (FIVE THOUSAND) SUBCUT SCH ×3 (05:41→21:49)
[2019-03-05 05:58] LABS: BUN/Creatinine Ratio 12.6 (8-20); Calcium 7.4 mg/dL (8.6-10.3); EGFR African American 30.5 (>60); EGFR Non-African American 25.2 (>60); Potassium 3.6 mmol/L (3.5-5.0)
[2019-03-05] MEDS: Ciprofloxacin 400MG IVPREMIX(* 400 MG/200 ML BAG IVPB SCH ×2 (07:38→19:56)
[2019-03-05] MEDS: amLODIPine TAB* 5 MG SCH (08:41)
--- NOTE | 2019-03-05 11:14 | CONSULT ---
Subjective Date of Service: 03/05/19 Interval History: Pt tolerating increase in tube feeds. Reports mild tenderness in LUQ, improved from prior. Has history of LE edema, HTN, and CKD, for which he reports taking two diuretics : HCTZ and furosemide. As pt is tolerating oral fluids and also TF through G- tube, will STOP IVF and consider starting diuretics through g-tube. Review of Systems - Measurements Intake and Output: Intake and Output Last 24 Hours 03/03/19 03/04/19 03/05/19 03/06/19 06:59 06:59 06:59 06:59 Intake Total 90 2479 4219 2211 Output Total 1485 745 560 Balance -1395 1734 3659 2211 Intake: IV Fluids 2305 966 1081 ABX - CIPROFLOXACIN 210 ABX - FLAGYL 110 LR 2305 966 761 IVPB 520 ABX 320 ABX - CIPROFLOXACIN 200 Oral 0 25 1620 Tube Feeding 69 1053 1050 Tube Feeding Flush Amount 90 80 60 80 Output: J Tube 120 ED #1 325 170 60 Urine 60 450 500 Meyers 980 125 Other: Estimated Void Medium Date of Last Bowel 02/28/19 Movement # Bowel Movements 1 Estimated Stool Amount Large # Voids 1 Objective Active Medications: Albuterol/Ipratropium (Duoneb (Albuterol 2.5 Mg/Ipratropium 0.5 Mg)) 1 neb INH Q4H PRN PRN Reason: SOB/WHEEZING Amlodipine Besylate (Norvasc Tab*) 10 mg .SEE ORDER DAILY [facility] Last Admin: 03/05/19 08:41 Dose: 10 mg Clonidine HCl (Dqlfvunv-Mxp-0 0.3 Mg Patch*) 0.3 mg TRANSDERM Q7D [facility] Last Admin: 03/03/19 10:11 Dose: 0.3 mg Heparin Sodium (Porcine) (Heparin Vial(*)) 5,000 units SUBCUT Q8HR [facility] Last Admin: 03/05/19 05:41 Dose: 5,000 units Hydralazine HCl (Apresoline Iv*) 10 mg IV SLOW PU Q4H PRN PRN Reason: BLOOD PRESSURE Last Admin: 03/04/19 05:19 Dose: 10 mg Hydromorphone HCl (Dilaudid Inj1s*) 2 mg IV SLOW PU Q1H PRN PRN Reason: PAIN - SEVERE Last Admin: 03/05/19 09:46 Dose: 2 mg Ciprofloxacin/Dextrose (Cipro 400 Mg Ivpremix(*)) 400 mg in 200 mls @ 200 mls/ hr IVPB Q12H [facility] Last Admin: 03/05/19 07:38 Dose: 200 mls/hr Metronidazole/Sodium Chloride (Flagyl 500 Mg Ivpb*) 500 mg in 100 mls @ 100 mls /hr IVPB Q8H [facility] Last Admin: 03/05/19 04:35 Dose: 100 mls/hr Lorazepam (Ativan Inj*) 0.5 mg IV PUSH Q4H PRN PRN Reason: ANXIETY Last Admin: 03/05/19 09:44 Dose: 0.5 mg Metoprolol Tartrate (Lopressor Iv*) 10 mg IV 0000,0600,1200,1800 [facility] Last Admin: 03/05/19 05:40 Dose: 10 mg Nadolol (Corgard Tab*) 20 mg PO DAILY@1630 [facility] Last Admin: 03/04/19 16:49 Dose: 20 mg Ondansetron HCl (Zofran Inj*) 4 mg IV Q6H PRN PRN Reason: NAUSEA Last Admin: 03/02/19 15:07 Dose: 4 mg Pantoprazole Sodium (Protonix Iv*) 40 mg IV Q24H [facility] Last Admin: 03/04/19 18:09 Dose: 40 mg Vital Signs - 8 hr 03/05/19 03/05/19 03/05/19 03:08 03:18 04:24 Temperature 97.5 F Pulse Rate 63 Respiratory 14 16 14 Rate Blood Pressure 156/97 (mmHg) O2 Sat by Pulse 94 Oximetry 03/05/19 03/05/19 03/05/19 04:37 05:40 05:41 Temperature Pulse Rate Respiratory 16 16 16 Rate Blood Pressure (mmHg) O2 Sat by Pulse Oximetry 03/05/19 03/05/19 03/05/19 07:04 07:56 07:58 Temperature 97.6 F Pulse Rate 68 Respiratory 18 20 18 Rate Blood Pressure 149/100 (mmHg) O2 Sat by Pulse 94 Oximetry 03/05/19 03/05/19 03/05/19 09:04 09:44 09:46 Temperature Pulse Rate Respiratory 18 20 20 Rate Blood Pressure (mmHg) O2 Sat by Pulse Oximetry 03/05/19 11:04 Temperature Pulse Rate Respiratory 20 Rate Blood Pressure (mmHg) O2 Sat by Pulse Oximetry Oxygen Devices in Use Now: None Appearance: appears older than stated age, NAD, alert and interactive Eyes: No Scleral Icterus Ears/Nose/Mouth/Throat: Clear Oropharnyx, Mucous Membranes Moist Neck: NL Appearance and Movements; NL JVP, Trachea Midline Respiratory: Symmetrical Chest Expansion and Respiratory Effort, Clear to Auscultation Cardiovascular: NL Sounds; No Murmurs; No JVD, RRR Abdominal: - - soft, mild ttp over LUQ without guarding/rebound, g-tube dressing c/d/i, ED drain with small amt of serosanguinous fluid Extremities: - - 1+ edema 1/3 up shins b/l Skin: No Rash or Ulcers Neurological: Alert and Oriented x 3 Result Diagrams: 03/03/19 05:15 03/05/19 05:31 Microbiology and Other Data: Microbiology 03/01/19 06:59 Aerobic Blood Culture - Preliminary Blood Venous No Growth Day 1 Anaerobic Blood Culture - Preliminary No Growth Day 1 03/01/19 20:30 Nasal Screen MRSA (PCR) - Final Nasal Mrsa Not Detected Assessment/Plan - Billing Assessment: 48M with chronic pain, HTN, CKD stage 3, gastric bypass, chronic LE edema presents with gastric ulcer perforation, taken urgently for laparoscopic repair 03/01/19, now with G-tube. # HTN - can restart home diuretics, so will stop metoprolol IV - cont amlodipine 10mg, nadolol 20mg - discontinue clonidine patch if able, if good response to diuretics # CKD with baseline creatinine 1.5 in 2018. Increased now likely due to ATN. - monitor Cr closely # Gastric ulcer s/p perforation, ulcer repair on 03/01. G-tube and ED drain in place. - cont cipro/metronidazole per surgery - cont PPI, can switch to oral if OK by surgery - NO NSAIDs # DVT PPx - can switch to enoxaparin
[2019-03-05] MEDS ORDERED: Hydrochlorothiazide TAB* 25 MG PO SCH (12:00)
[2019-03-05] MEDS ORDERED: Furosemide TAB* 20 MG PO SCH (12:00)
--- NOTE | 2019-03-05 14:21 | PN ---
Progress Note - Progress Note Date of Service: 03/05/19 SOAP: Subjective: Comfortable in bed, tolerating tube feeds at goal 70cc/hr + Flatus + BM [] Objective: Vital Signs Temp 97.2 F 03/05/19 11:36 Pulse 69 03/05/19 11:36 Resp 18 03/05/19 13:26 BP 146/93 03/05/19 11:36 Pulse Ox 96 03/05/19 11:36 Intake & Output 03/04/19 03/05/19 03/05/19 18:59 06:59 18:59 Intake Total 3099 1120 2211 Output Total 350 210 400 Balance 2749 910 1811 Intake: IV Fluids 966 1081 ABX - CIPROFLOXACIN 210 ABX - FLAGYL 110 LR 966 761 IVPB 210 310 ABX 210 110 ABX - CIPROFLOXACIN 200 Oral 840 780 Tube Feeding 1053 1050 Tube Feeding Flush Amount 30 30 80 Output: ED #1 60 Urine 350 150 400 Other: Estimated Void Medium # Bowel Movements 1 Estimated Stool Amount Large # Voids 1 PEX: GEN: NAD CHEST: CTA B/L CVS: RRR ABD: soft ED with SS output, +BS's G tube site & Incisions C/D/I EXT: Calves Soft, non tender [] Assessment: S/P Lap repair of Marginal ulcer, G tube placement, tube feeds at goal 70cc/hr [] Plan: Change feeds to Bolus, Per Dietary, 1/2 carton (120ml) Q 4 hrs starting 1800 tonight while awake if tolerated, no N/V/D, ABD pain, increase to 240 ml Q 4hrs Goal is 7 cartons Jevity 1.2 (1680ml) per day d/c home with bolus feeds of Jevity 1.2 Poss remove ED prior to d/c. OOB ambulate []
[2019-03-05] MEDS ORDERED: NADOLOL 40 MG G TUBE SCH (16:30)
[2019-03-05] MEDS: oxyCODONE TAB* 5 MG TAB PRN (17:14)
[2019-03-05] MEDS: hydrALAZINE IV* 20 MG/ML VIAL IV SLOW PU PRN (17:35)
[2019-03-05] MEDS: Pantoprazole IV* 40 MG IV SCH (18:21)
[2019-03-06] MEDS: metroNIDAZOLE IV 500 MG/100ML* 500 MG/100 ML BAG IVPB SCH (05:04)
[2019-03-06] MEDS: HYDROmorphone INJ1* 1 MG/ML SYRINGE IV SLOW PU PRN ×2 (05:36→09:47)
[2019-03-06] MEDS: Heparin VIAL(*) 5000 UNITS/ML VIAL (FIVE THOUSAND) SUBCUT SCH (06:38)
[2019-03-06] MEDS: Ciprofloxacin 400MG IVPREMIX(* 400 MG/200 ML BAG IVPB SCH (07:58)
[2019-03-06] MEDS ORDERED: Carvedilol TAB* 6.25 MG PO SCH (08:00)
[2019-03-06] MEDS: LORazepam INJ* 2 MG/ML 1 ML VIAL IV PUSH PRN (08:00)
[2019-03-06] MEDS: oxyCODONE TAB* 5 MG TAB PRN ×2 (08:02→11:59)
[2019-03-06] MEDS: oxyCODONE/Acetamin 5/325 MG* TAB G TUBE PRN ×2 (08:02→11:59)
[2019-03-06] MEDS: amLODIPine TAB* 5 MG SCH (08:12)
[2019-03-06 08:57] LABS: BUN/Creatinine Ratio 12.8 (8-20); Calcium 7.5 mg/dL (8.6-10.3); EGFR African American 31.1 (>60); EGFR Non-African American 25.7 (>60); Magnesium 2.1 mg/dL (1.9-2.7); Potassium 3.9 mmol/L (3.5-5.0)
[2019-03-06] MEDS ORDERED: Hydrochlorothiazide TAB* 25 MG G TUBE SCH (09:00)
[2019-03-06] MEDS ORDERED: Furosemide TAB* 40 MG G TUBE SCH (09:00)
--- NOTE | 2019-03-06 11:39 | CONSULT ---
Subjective Date of Service: 03/06/19 Interval History: No overnight events. Tolerating adjustments in BP meds. Had good UOP after re- starting home diuretics, with stable BMP. LE edema improving. Denies orthopnea or dyspnea. Review of Systems - Measurements Intake and Output: Intake and Output Last 24 Hours 03/04/19 03/05/19 03/06/19 03/07/19 06:59 06:59 06:59 06:59 Intake Total 2479 4219 3492 590 Output Total 052 440 6985 210 Balance 1734 3659 2457 380 Intake: IV Fluids 2305 966 1342 360 ABX - CIPROFLOXACIN 210 210 ABX - FLAGYL 321 110 LR 2305 966 761 NS 50 40 IVPB 520 ABX 320 ABX - CIPROFLOXACIN 200 Oral 25 1620 370 Tube Feeding 69 1053 1550 120 Tube Feeding Flush Amount 80 60 230 110 Output: ED #1 170 60 35 Urine 838 336 9859 210 Meyers 125 Other: Estimated Void Medium Medium Date of Last Bowel 03/05/2019 Movement # Bowel Movements 1 1 Estimated Stool Amount Large Medium # Voids 1 1 Objective Active Medications: Albuterol/Ipratropium (Duoneb (Albuterol 2.5 Mg/Ipratropium 0.5 Mg)) 1 neb INH Q4H PRN PRN Reason: SOB/WHEEZING Amlodipine Besylate (Norvasc Tab*) 10 mg .SEE ORDER DAILY [facility] Last Admin: 03/06/19 08:12 Dose: 10 mg Carvedilol (Coreg Tab*) 6.25 mg PO Q12H [facility] Last Admin: 03/06/19 08:12 Dose: 6.25 mg Enoxaparin Sodium (Lovenox(*)) 40 mg SUBCUT BEDTIME [facility] Furosemide (Lasix Tab*) 40 mg G TUBE DAILY [facility] Last Admin: 03/06/19 08:12 Dose: 40 mg Hydralazine HCl (Apresoline Iv*) 10 mg IV SLOW PU Q4H PRN PRN Reason: BLOOD PRESSURE Last Admin: 03/05/19 17:35 Dose: 10 mg Hydrochlorothiazide (Hydrodiuril Tab*) 25 mg G TUBE DAILY [facility] Last Admin: 03/06/19 08:13 Dose: 25 mg Hydromorphone HCl (Dilaudid Inj1s*) 2 mg IV SLOW PU Q3H PRN PRN Reason: PAIN - SEVERE Last Admin: 03/06/19 09:47 Dose: 2 mg Lorazepam (Ativan Inj*) 0.5 mg IV PUSH Q4H PRN PRN Reason: ANXIETY Last Admin: 03/06/19 08:00 Dose: 0.5 mg Ondansetron HCl (Zofran Inj*) 4 mg IV Q6H PRN PRN Reason: NAUSEA Last Admin: 03/02/19 15:07 Dose: 4 mg Oxycodone HCl (Roxycodone Tab*) 5 mg .SEE ORDER Q4H PRN PRN Reason: moderate pain Last Admin: 03/06/19 08:02 Dose: 5 mg Oxycodone/Acetaminophen (Percocet 5/325 Tab*) 1 tab G TUBE Q4H PRN PRN Reason: PAIN - MODERATE Last Admin: 03/06/19 08:02 Dose: 1 tab Pantoprazole Sodium (Protonix Iv*) 40 mg IV Q24H [facility] Last Admin: 03/05/19 18:21 Dose: 40 mg Vital Signs - 8 hr 03/06/19 03/06/19 03/06/19 05:36 07:07 08:00 Temperature Pulse Rate Respiratory 16 16 20 Rate Blood Pressure (mmHg) O2 Sat by Pulse Oximetry 03/06/19 03/06/19 03/06/19 08:02 08:10 09:46 Temperature 97.7 F Pulse Rate 68 Respiratory 20 20 Rate Blood Pressure 145/101 (mmHg) O2 Sat by Pulse 95 Oximetry 03/06/19 03/06/19 09:47 10:55 Temperature Pulse Rate Respiratory 20 18 Rate Blood Pressure (mmHg) O2 Sat by Pulse Oximetry Oxygen Devices in Use Now: None Appearance: well appearing man, sitting in chair drinking tea Eyes: No Scleral Icterus Ears/Nose/Mouth/Throat: NL Teeth, Lips, Gums, Clear Oropharnyx Neck: NL Appearance and Movements; NL JVP, Trachea Midline Respiratory: Symmetrical Chest Expansion and Respiratory Effort, Clear to Auscultation Cardiovascular: NL Sounds; No Murmurs; No JVD, RRR Abdominal: No Hepatosplenomegaly, - - mild LUQ tenderness without guarding or rebound, +ED drain and G-tube; normoactive bowel sounds Extremities: - - trace edema over ankles b/l Skin: No Rash or Ulcers Neurological: Alert and Oriented x 3 Result Diagrams: 11/04/19 05:15 03/06/19 08:25 Microbiology and Other Data: Microbiology 03/01/19 06:59 Aerobic Blood Culture - Preliminary Blood Venous No Growth Day 1 Anaerobic Blood Culture - Preliminary No Growth Day 1 03/01/19 20:30 Nasal Screen MRSA (PCR) - Final Nasal Mrsa Not Detected Assessment/Plan - Billing Assessment: 48M with chronic pain, HTN, CKD stage 3, gastric bypass, chronic LE edema, presents with gastric ulcer perforation, taken urgently for laparoscopic repair 03/01/19, now with G-tube. # HTN - discontinue clonodine patch (done) - discharge patient on amlodipine 10mg nightly, HCTZ 25mg daily, and carvedilol 6.25 q12h - he should resume his home lisinopril dose with his PCP, after his renal function stabilizes # CKD with baseline creatinine 1.5 in 2018. Increased now likely due to ATN. - monitor Cr closely, will need BMP next week # LE edema - cont home furosemide 40mg dailiy # Gastric ulcer s/p perforation, ulcer repair on 03/01. G-tube and ED drain in place. - per Dr. Sloan, can discontinue cipro/metronidazole - cont PPI, can switch to oral per surgical service - NO NSAIDs # DVT PPx - cont enoxaparin subq in hospital
[2019-03-06 11:55] VITALS: BP 139/93
--- NOTE | 2019-03-06 12:12 | PN ---
Progress Note - Progress Note Date of Service: 03/06/19 Note: S: POD #5. Doing well. Less pain. Rashida bolus TFs. Anticipating going home. Comfortable with meds to be crushed; G-tube flushes. Dr. Alba's help and recommendations appreciated. O: Vital Signs - 8 hr 03/06/19 03/06/19 03/06/19 05:36 07:07 08:00 Temperature Pulse Rate Respiratory 16 16 20 Rate Blood Pressure (mmHg) O2 Sat by Pulse Oximetry 03/06/19 03/06/19 03/06/19 08:02 08:10 09:46 Temperature 97.7 F Pulse Rate 68 Respiratory 20 20 Rate Blood Pressure 145/101 (mmHg) O2 Sat by Pulse 95 Oximetry 03/06/19 03/06/19 03/06/19 09:47 10:55 11:53 Temperature 97.7 F Pulse Rate 61 Respiratory 20 18 20 Rate Blood Pressure 139/93 (mmHg) O2 Sat by Pulse 97 Oximetry Intake and Output Last 24 Hours 03/04/19 03/05/19 03/06/19 03/07/19 06:59 06:59 06:59 06:59 Intake Total 2479 4219 3492 590 Output Total 137 636 8721 210 Balance 1734 3659 2457 380 Intake: IV Fluids 2305 966 1342 360 ABX - CIPROFLOXACIN 210 210 ABX - FLAGYL 321 110 LR 2305 966 761 NS 50 40 IVPB 520 ABX 320 ABX - CIPROFLOXACIN 200 Oral 25 1620 370 Tube Feeding 69 1053 1550 120 Tube Feeding Flush Amount 80 60 230 110 Output: ED #1 170 60 35 Urine 904 480 9366 210 Meyers 125 Other: Estimated Void Medium Medium Date of Last Bowel 03/05/2019 Movement # Bowel Movements 1 1 Estimated Stool Amount Large Medium # Voids 1 1 Gen: lying in bed; appears comfortable; NAD Heart: reg Lungs: clear ant; sl decreased BS at both bases Abd: G-tube site clean; ED: small amt of light serosang drainage; BS normal; soft, nontender to palp; lap sites ok A: s/p lap repair perf'd marginal ulcer; G-tube placement; cont to improve P: ok for d/c home today; resume usual home meds other than changes recommended by Dr. Alba. ED d/c'd; DSD placed.
--- NOTE | 2019-03-06 19:16 | DS ---
[facility] SUMMARY: DATE OF ADMISSION: 03/01/19 DATE OF DISCHARGE: 03/06/19 ATTENDING SURGEON: Dr. Guillermo Sesay.* (DICTATED BY DAIN BAUER) HOSPITAL COURSE: Please refer to admission history and physical and operative note for details. The patient was taken to the operating room by Dr. Sesay on 03/01/19, at which time he was found to have a perforated marginal ulcer. Repair was done laparoscopically using an omental patch. A laparoscopic G-tube was placed for future feeding. The patient has had an otherwise unremarkable postoperative course. He was seen in consult for hypertension control by the hospitalist service. As of the day of discharge, he was tolerating bolus tube feeds well and had been instructed in crushing his meds to be given via G-tube. He was also tolerating bariatric clear liquids. See separate progress note from the date of discharge for further details. The patient is discharged to home on his pre- hospital medication regimen with the following exceptions. Carvedilol is substituted for nadolol. His lisinopril will be held until he has repeat basic metabolic profile, which will be scheduled for next week. He has a followup scheduled with Dr. Sesay for 03/13/19 and was instructed to contact his PCP office (Dr. Holder) for medical followup within 2 to 4 weeks. He is discharged to home in good condition. DAIN BAUER [id number]/[facility] #: [id number] [facility]
[2019-03-06] MEDS ORDERED: Enoxaparin(*) 40 MG/0.4 ML SYR SUBCUT SCH (21:00)
== END 2019-03-06 13:13 | disposition home or self-care (01) | DRG 222 ==
LOC: ED 06:30 → SSU 11:20 → ICU 20:01 → SSU 03-03 15:17
PROVIDERS: ADMIT Surgery; ATTEND Surgery
PROC: 0DH63UZ Insertion of Feeding Device into Stomach, Percutaneous Approach (ICD-10-PCS; 2019-03-01)
PROC: 0DU747Z Supplement Stomach, Pylorus with Autologous Tissue Substitute, Percutaneous Endoscopic Approach (ICD-10-PCS; principal; 2019-03-01 13:00)
DX: K28.5 Chronic or unspecified gastrojejunal ulcer with perforation (principal); N17.9 Acute kidney failure, unspecified; D62 Acute posthemorrhagic anemia; E46 Unspecified protein-calorie malnutrition; J45.909 Unspecified asthma, uncomplicated; K21.9 Gastro-esophageal reflux disease without esophagitis; K58.9 Irritable bowel syndrome, unspecified; M17.0 Bilateral primary osteoarthritis of knee; M16.0 Bilateral primary osteoarthritis of hip; G43.909 Migraine, unspecified, not intractable, without status migrainosus; G47.30 Sleep apnea, unspecified; I12.9 Hypertensive chronic kidney disease with stage 1 through stage 4 chronic kidney disease, or unspecified chronic kidney disease; N18.3 Chronic kidney disease, stage 3 (moderate); G89.29 Other chronic pain; R60.0 Localized edema; F41.9 Anxiety disorder, unspecified; F17.210 Nicotine dependence, cigarettes, uncomplicated; Z88.2 Allergy status to sulfonamides; Z90.49 Acquired absence of other specified parts of digestive tract; Z98.84 Bariatric surgery status; Z87.442 Personal history of urinary calculi; Z84.1 Family history of disorders of kidney and ureter; Z68.26 Body mass index [BMI] 26.0-26.9, adult
CPT/HCPCS: 36415; 71046; 74176; 74246; 80048; 80053; 81003; 81015; 82803; 83605; 83735; 83880; 84100; 85025; 85610; 85730; 86140; 86850; 86900; 86901; 87040; 87086; 87641; 93005; 96365; 96375; 99285; A9270-GY; B4087; J0360; J0744; J1100; J1170; J1644; J2060; J2250; J2405; J2704; J2710; J3010; J3370; J3411; J3475; J3480; J3490

== ENCOUNTER → 2019-04-21 12:53 | Day surgery (SDC) | payer OTHER ==
[2019-04-21 13:18] VITALS: BP 178/107
--- NOTE | 2019-04-21 22:45 | PRO ---
CC: Dr. Holder* PROCEDURE NOTE: DATE OF PROCEDURE: 04/21/19 PRE-PROCEDURE DIAGNOSIS: Gastric tube dysfunction. POST-PROCEDURE DIAGNOSIS: Gastric tube dysfunction. PROCEDURE: Replacement of gastrostomy tube. SURGEON: Dr. Sesay. ANESTHESIA: None. Tube is 16-Portuguese gastrostomy. COMPLICATIONS: None. PROCEDURE: The patient was placed supine on the stretcher. The patient's tract had been maintained with a 12-Portuguese gastrostomy tube that had been placed in the office. This was threaded with guidewire and then the tube was withdrawn and serial dilation was performed with the dilators and then dilators withdrawn and a new 16-Portuguese gastrostomy tube was placed over guidewire and inserted into the stomach. Gastric contents were aspirated. The tube for the balloon was filled with 7 mL of water. The flange was snug down to the skin. Dressing was applied. The tube was flushed and then capped. He tolerated this well. There were no complications. [id number]/[facility] #: [id number] MTDD
== END | disposition home or self-care (01) ==
LOC: OR 12:53
PROVIDERS: ATTEND Surgery
DX: K94.20 Gastrostomy complication, unspecified (principal); Z87.11 Personal history of peptic ulcer disease; Z98.84 Bariatric surgery status; R11.2 Nausea with vomiting, unspecified; I10 Essential (primary) hypertension; J45.909 Unspecified asthma, uncomplicated; F41.9 Anxiety disorder, unspecified; Z87.891 Personal history of nicotine dependence

== ENCOUNTER 2019-06-10 15:48 | Emergency (ER) | payer OTHER ==
--- OUTSIDE RECORDS SUMMARY | 2019-06-10 16:07 | XMS REPORT | Continuity of Care Document ---
:1970 External Reference #:[id number] Author Name Guillermo Sesay MD, FACS (transmitted by agent of provider Khang Haas) Address [address] [facility] [address] [place] [address] Care Team Providers Name Role Phone Mariela Holder MD - Internal Medicine Care Team Information Tray Server Problems Active Problems Provider Date Gastro-esophageal reflux disease with Magdi Johnson MD Onset: 04/25/2003 esophagitis Note: consult before prebariatric EGD in 2004 referred to [facility] for 2 yrs: History of bariatric surgical procedure Magdi Johnson MD Onset: 2006 Note: at [place]- preop weight 389 September 2004; Crushing injury of hand Rashaun Casanova MD Onset: 01/28/2019 Nondisplaced fracture of proximal phalanx of Rashaun Casanova MD Onset: 2018 right index finger, initial encounter for closed fracture Chronic renal failure Magdi Johnson MD Onset: 04/25/2018 Note: 3+ dipstick proteinuria February 2019; Cr 1.Mar and 2.February; failed renal Bx summer 2018 Anxiety state Magdi Johnson MD Onset: 01/08/2013 Note: admission to ICU and [place] [address] in 2012 Social History Type Date Description Comments Sex Unknown Tobacco Use Start: Unknown End: Former Cigarette Smoker Unknown Smoking Status Reviewed: 05/22/19 Former Cigarette Smoker ETOH Use Denies alcohol use Tobacco Use Start: Unknown End: Patient is a former quit Unknown smoker 02/22/19Document: 03/13/19 - .Nurse GS Recreational Drug Use Sporadically uses pain and anxiety Marijuana managementDocument: 03/13/19 - History GS Exercise Type/Frequency Exercises regularly Allergies, Adverse Reactions, Alerts Active Allergies Reaction Severity Comments Date Sulfalene swelling/hives/blisters 01/28/2019 Medications Active Medications SIG Qnty Indications Ordering Date Provider Amlodipine Besylate 10 mg by mouth 90tabs Mohammad A. 05/16/2019 10mg daily at bedtime MD Chelle Tablets Carvedilol 1 tab by mouth 120tabs Mohammad A. 05/16/2019 12.5mg Tablets twice a day MD Chelle Percocet 1 - 2 tabs by Unknown 5-325mg Tablets mouth every 4 - 6 hours as needed for pain. Hydroxyzine HCL Take 1 Tablet By Unknown 25mg Mouth Every Day Tablets After Dinner Loratadine Take 1 Tablet By Unknown 10mg Tablets Mouth Every Day Cyclobenzaprine HCL Take 1 Tablet By Unknown 10mg Mouth Three Tablets Times Daily as Needed For Muscle Spasms Pantoprazole Sodium Take 1 Tablet By Unknown 40mg Mouth Two Times Tablets DR Daily Albuterol Sulfate HFA Inhale 2 Puffs Unknown By Mouth Every 6 108(90Base) mcg/Act Hours as Needed Aerosol For Wheezing Zolpidem Tartrate Take 1 Tablet By Unknown 10mg Mouth AT Bedtime Tablets as Needed Insomnia - Maximum Daily Dose 1 Tablet Klonopin 1 by mouth every Unknown 0.5mg Tablets day Ferrous Fumarate take 1 capsule Unknown 324(106Fe) daily in the mg Tablets morning Promethazine HCL take 1 by mouth Unknown 25mg every 8 hours as Tablets needed for nausea (take with ibuprofen and benadryl) Torsemide 1 by mouth PO 120tabs Mohammad A. 20mg Tablets bid MD Chelle Hydralazine HCL take one by Unknown 100mg mouth three Tablets times daily History Medications Tramadol HCL 1-2 tablets by 30tabs Rashaun Casanova MD 01/31/2019 - Unknown 50mg mouth every 6 Tablets hours as needed pain Immunizations Description No Information Available Vital Signs Date Vital Result Comment 05/22/2019 3:45pm Height 71 inches 5'11" Weight 209.00 lb Heart Rate 78 /min BP Systolic Sitting 178 mmHg BP Diastolic Sitting 98 mmHg Respiratory Rate 16 /min Body Temperature 98.0 F BMI (Body Mass Index) 29.1 kg/m2 05/15/2019 1:09pm Height 71 inches 5'11" Weight 209.00 lb Heart Rate 94 /min BP Systolic Sitting 181 mmHg left arm reg cuff BP Diastolic Sitting 110 mmHg left arm reg cuff O2 % BldC Oximetry 94 % room air BMI (Body Mass Index) 29.1 kg/m2 Results Test Acquired Facility Test Result H/L Range Note Date Laboratory test 05/15/2019 [facility] B-Type 689 pg/mL High <= [address] [place] [address] Peptide BNP [phone] HIV-1 Rna QNT 05/15/2019 [facility] HIV-1 Rna Undetected Undetected 1 By PCR Sli [address] (PCR) copies/[place] [address] [phone] Laboratory test 05/15/2019 [facility] Hemoglobin 4.9 % Normal 4.0-5.[address] A1c ([place] [address] HGB) [phone] Urine Culture 05/15/2019 [facility] Urine SEE RESULT [address] [place] [address] [phone] HIV 1&2 p24 05/15/2019 [facility] HIV 4th Preliminary Abnormal Nonreactive [address] Generation Reac <[place] [address] NOTE> [phone] HIV-1 Ab Differentiation,P Negative Negative 5 HIV-2 Ab Differentiation,P Negative Negative 6 Phospholipase A2 05/15/2019 [facility] Phospholipase A2 Negative Negative 7 Receptor AB [address] [place] [address] [phone] Phospholipase A2 ReceptorELISA <2 RU/mL 8 Protein 05/15/2019 [facility] Total 5.6 Abnormal 6.3 - Electrophoresis [address] Protein(Pep) g/dL 7.9 [place], [place] [id number] [phone] Albumin 2.0 g/dL Abnormal 3.4-4.7 Alpha-1 Globulin 0.3 g/dL 0.1-0.3 Alpha-2 Globulin 1.3 g/dL Abnormal 0.6-1.0 Beta Globulin 0.8 g/dL 0.7-1.2 Gamma Globulin 1.2 g/dL 0.6-1.6 Albumin/Globulin Ratio 0.56 Impression See Comment 9 [place]/Lambda Free 05/15/2019 [facility] [place] Free 29.1 mg/dL Abnormal 10 Light Chains Ser [address] [place] [address] [phone] Lambda Free Light Chain 19.4 mg/dL Abnormal 11 [place]/Lambda Free Light Chain 1.50 12 Cryoglobulin & 05/15/2019 [facility] Cryoglobulin Negative Negative [address] %[place] [address] [phone] Cryofibrinogen Negative Negative 14 Hepatitis C Antibody 05/15/2019 [facility] HCV Index 0.06 s/c [address] [place] [address] [phone] Hepatitis C Antibody Negative Negative Neutrophil Cytoplasmic 05/15/2019 [facility] C-Anca Negative Negative AB [address] [place] [address] [phone] P-Anca Negative Negative 15 GN Serology 05/15/2019 [facility] Anti Double Stranded <12.3 IU/ mL [address] [place] [address] [phone] Complement C3 105 mg/dL 75 - 175 17 Complement C4 24 mg/dL 14 - 40 18 Glomerular Basement Membrane <0.2 U 19 Anti Nuclear Antibody 0.2 U 20 Myeloperoxidase AB <0.2 U 21 Proteinase 3 <0.2 U 22 Hepatitis B Surface Ag Nonreactive Nonreactive Hepatitis B Core AB Total Negative Negative 23 Histone Antibody <pending> Rheumatoid Factor 15 IU/mL High <15 Erythrocyte Sed Rate > 120 mm/Hr High 0-14 C Reactive Protein 77.88 mg/L High <8.01 Hepatitis B Rosi AB Titer Not Immune Abnormal Immune Miscellaneous Test See Comment 24 Laboratory test 05/15/2019 [facility] Ferritin 121.1 Normal 24 -[address] ng/[place] [address] [phone] Iron & Iron 05/15/2019 [facility] Total Iron 218 g/dL Low 250-[address] [place] [address] Capacity [phone] Transferrin 156 mg/dL Low 203-362 Iron < 20 g/dL Low 50-212 Unsaturated Iron Binding < 203 g/dL % Iron Saturation 9 % Low 15-55 Urinalysis Profile 05/15/2019 [facility] Urine Color Yellow [address] [place] [address] [phone] Urine Appearance Clear Urine Specific Holden 1.016 Normal 1.010-1.030 Urine pH 5.0 Normal 5-9 Urine Urobilinogen Negative Negative Urine Ketones Negative Negative Urine Protein 2+(100 mg/dL) Abnormal Negative Urine Leukocytes Negative Negative Urine Blood 1+ Abnormal Negative Urine Nitrite Negative Negative Urine Bilirubin Negative Negative Urine Glucose 1+(50 mg/dL) Abnormal Negative Urine White Blood Cell Trace(0-5/hpf) Absent Urine Red Blood Cell 3+(>10/hpf) Abnormal Absent Urine Bacteria Absent Absent Basic Metabolic 05/15/2019 [facility] Sodium 137 mmol/L Normal 135-[address] [place] [address] [phone] Potassium 3.8 mmol/L Normal 3.5-5.0 Chloride 100 mmol/L Low 101-111 Co2 Carbon Dioxide 22 mmol/L Normal 22-32 Anion Gap 15 mmol/L High 2-11 Glucose 72 mg/dL Normal 70-100 Blood Urea Nitrogen 72 mg/dL High 6-24 Creatinine 3.80 mg/dL High 0.67-1.17 BUN/Creatinine Ratio 18.9 Normal 8-20 Calcium 7.3 mg/dL Low 8.6-10.3 Egfr Non- 17.0 >60 Egfr 20.6 >60 25 CBC Auto 05/15/2019 [facility] White Blood 17.1 10^3/uL High 3.5-10.[address] [place] [address] [phone] Red Blood Count 2.87 10^6/uL Low 4.18-5.48 Hemoglobin 8.5 g/dL Low 14.0-18.0 Hematocrit 26 % Low 42-52 Mean Corpuscular Volume 89 fL Normal 80-94 Mean Corpuscular Hemoglobin 30 pg Normal 27-31 Mean Corpuscular HGB Conc 33 g/dL Normal 31-36 Red Cell Distribution Width 17 % High 10-15 Platelet Count 429 10^3/uL Normal 150-450 Mean Platelet Volume 6.3 fL Low 7.4-10.4 Abs Neutrophils 15.7 10^3/uL High 1.5-7.7 Abs Lymphocytes 0.6 10^3/uL Low 1.0-4.8 Abs Monocytes 0.4 10^3/uL Normal 0-0.8 Abs Eosinophils 0.3 10^3/uL Normal 0-0.6 Abs Basophils 0.1 10^3/uL Normal 0-0.2 Abs Nucleated RBC 0.0 10^3/uL Granulocyte % 91.9 % Lymphocyte % 3.6 % Monocyte % 2.3 % Eosinophil % 1.8 % Basophil % 0.4 % Nucleated Red Blood Cells % 0.1 Neph Routine 05/15/2019 [facility] Total Protein Random 583 mg/ dL [address] [place] [address] [phone] Creatinine Random Urine 47.59 mg/dL Laboratory test 05/15/2019 [facility] Albumin 2.5 g/dL Low 3.2 -5.[address] [place] [address] [phone] CBC No Diff 04/25/2019 [facility] White Blood 13.7 High 3.5- 10.[address] Count 10^3/[place] [address] [phone] Red Blood Count 3.00 10^6/uL Low 4.18-5.48 Hemoglobin 8.9 g/dL Low 14.0-18.0 Hematocrit 26 % Low 42-52 Mean Corpuscular Volume 88 fL Normal 80-94 Mean Corpuscular Hemoglobin 30 pg Normal 27-31 Mean Corpuscular HGB Conc 34 g/dL Normal 31-36 Red Cell Distribution Width 18 % High 10-15 Platelet Count 356 10^3/uL Normal 150-450 Mean Platelet Volume 7.1 fL Low 7.4-10.4 Comp Metabolic Panel 04/25/2019 [facility] Sodium 132 mmol/L Low 135-[address] [place] [address] [phone] Potassium 3.3 mmol/L Low 3.5-5.0 Chloride 98 mmol/L Low 101-111 Co2 Carbon Dioxide 24 mmol/L Normal 22-32 Anion Gap 10 mmol/L Normal 2-11 Glucose 80 mg/dL Normal 70-100 Blood Urea Nitrogen 54 mg/dL High 6-24 Creatinine 3.30 mg/dL High 0.67-1.17 BUN/Creatinine Ratio 16.4 Normal 8-20 Calcium 7.1 mg/dL Low 8.6-10.3 Total Protein 5.2 g/dL Low 6.4-8.9 Albumin 2.5 g/dL Low 3.2-5.2 Globulin 2.7 g/dL Normal 2-4 Albumin/Globulin Ratio 0.9 Low 1-3 Total Bilirubin 0.20 mg/dL Normal 0.2-1.0 Alkaline Phosphatase 68 U/L Normal 34-104 Alt 10 U/L Normal 7-52 Ast 16 U/L Normal 13-39 Egfr Non- 20.0 >60 Egfr 24.2 >60 26 Laboratory test 04/25/2019 [facility] C Reactive 50.86 mg/L High <8.[address] [place] [address] [phone] Prealbumin 17 mg/dL Low 18-38 1 Result in log copies/mL is Undetected. ADDITIONAL INFORMATION The quantification range of this assay is 20 to 10,000,000 copies/mL (1.30 log to 7.00 log copies/mL). Testing was performed using the shasta HIV-1 test ([employer] with the shasta 6800 System. This test has been modified from the media services specialist's instructions. Its performance characteristics were determined by [facility] in a manner consistent with CLIA requirements. This test has not been cleared or approved by the U.S. Food and Drug Administration. Test Performed by: [facility] [address] [place] [address] Building Wrecker: Brandon Cuenca M.D. Ph.D.; CLIA# [id number] 2 Therapeutic target for the treatment of diabetes mellitus patients is <7% HBA1C, and in selective patients <6.0%. Please refer to [place] Diabetes Association diabetic care guidelines for further information. 3 SEE RESULT BELOW Name: MIMI LOFTON : [address]: Paul Corbett MD Acct: [id number] Unit: [id number] AGE: 48 Location: LAB Re05/15/19 SEX: M Status: REG REF SPEC: [id number] ALBA: 05/15/19-1446 [facility] DR: Paul Corbett MD REQ: [id number] RECD: 05/15/19-1508 STATUS: COMP _ SOURCE: URINE SPDESC: ORDERED: Urine Culture Procedure Result Reported Site Urine Culture Final 05/16/19- 1404 ML No Growth (<1,000 CFU/mL) * ML - Main Lab . END OF REPORT DEPARTMENT OF PATHOLOGY, [address] [place] [address] Khurram Wallis M.D. Director CLIA # [id number] 4 Preliminary Reactive Specimen sent to [facility] for confirmatory testing. 5 Bands detected: None Negative result does not rule out HIV infection. Reflex testing for HIV-1 RNA detection and quantification is ordered. 6 Bands detected: None Negative result does not rule out HIV infection. Reflex testing for HIV-1 RNA detection and quantification is ordered. Test Performed by: [place] [address] Building Wrecker: Brandon Cuenca M.D. Ph.D.; CLIA# [id number] 7 ADDITIONAL INFORMATION This test was developed and its performance characteristics determined by [facility] in a manner consistent with CLIA requirements. This test has not been cleared or approved by the U.S. Food and Drug Administration. 8 REFERENCE VALUE <14 RU/mL: Negative 14-19 RU/mL: Borderline >19 RU/mL: Positive Test Performed by: [facility] [address] [address] Building Wrecker: Brandon Cuenca M.D. Ph.D.; CLIA# [id number] 9 RESULT: No apparent monoclonal protein on serum electrophoresis. Test Performed by: [facility] [address] Building Wrecker: Brandon Cuenca M.D. Ph.D.; CLIA# [id number] 10 REFERENCE VALUE 0.3300-1.94 11 REFERENCE VALUE 0.5700-2.63 12 REFERENCE VALUE 0.2600-1.65 Test Performed by: [place] [address] Building Wrecker: Brandon Cuenca M.D. Ph.D.; CLIA# [id number] 13 This test is negative at 24 hours. All samples are held and reviewed again at 7 days. If delayed precipitation occurs after 7 days, Immunofixation will be performed and an additional report will follow. 14 Test Performed by: [facility] [address] Building Wrecker: Brandon Cuenca M.D. Ph.D.; CLIA# [id number] 15 Negative for cANCA and pANCA patterns by immunofluorescence. ADDITIONAL INFORMATION This test was developed and its performance characteristics determined by [facility] in a manner consistent with CLIA requirements. This test has not been cleared or approved by the U.S. Food and Drug Administration. Test Performed by: [facility] [address] Building Wrecker: Brandon Cuenca M.D. Ph.D.; CLIA# [id number] 16 REFERENCE VALUE <30.0 (Negative) Test Performed by: [place] [address] Building Wrecker: Brandon Cuenca M.D. Ph.D.; CLIA# [id number] 17 Test Performed by: [place] [address] Building Wrecker: Brandon Cuenca M.D. Ph.D.; CLIA# [id number] 18 Test Performed by: [place] [address] Building Wrecker: Brandon Cuenca M.D. Ph.D.; CLIA# [id number] 19 REFERENCE VALUE <1.0 (Negative) Test Performed by: [place] [address] Building Wrecker: Brandon Cuenca M.D. Ph.D.; CLIA# [id number] 20 REFERENCE VALUE <=1.0 (Negative) Test Performed by: [place] [address] Building Wrecker: Brandon Cuenca M.D. Ph.D.; CLIA# [id number] 21 REFERENCE VALUE <0.4 (Negative) Test Performed by: [place] [address] Building Wrecker: Brandon Cuenca M.D. Ph.D.; CLIA# [id number] 22 REFERENCE VALUE <0.4 (Negative) Test Performed by: [place] [address] Building Wrecker: Brandon Cuenca M.D. Ph.D.; CLIA# [id number] 23 Test Performed by: [place] [address] Building Wrecker: Brandon Cuenca M.D. Ph.D.; CLIA# [id number] 24 Antihistone Antibodies Result Flag Units Ref Interval Test Report Date 05/20/2019 1505 ET Anti-histone Abs 0.7 Units 0.0-0.9 Negative <1.0 Weak Positive 1.0-1.5 Moderate Positive 1.6-2.5 Strong Positive >2.5 Performed at [address] [address] Dir: Marlin Gerard MD 25 Because ethnic data is not always readily available, this report includes an eGFR for both -Americans and non- Americans. The National Kidney Disease Education Program (NKDEP) does not endorse the use of the MDRD equation for patients that are not between the ages of 18 and 70, are , have extremes of body size, muscle mass, or nutritional status, or are non- or non-. According to the National Kidney Foundation, irrespective of diagnosis, the stage of the disease is based on the level of kidney function: Stage Description GFR(mL/min/1.73 m(2)) 1 Kidney damage with normal or decreased GFR 90 2 Kidney damage with mild decrease in GFR 60-89 3 Moderate decrease in GFR 30-59 4 Severe decrease in GFR 15-29 5 Kidney failure <15 (or dialysis) 26 Because ethnic data is not always readily available, this report includes an eGFR for both -Americans and non- Americans. The National Kidney Disease Education Program (NKDEP) does not endorse the use of the MDRD equation for patients that are not between the ages of 18 and 70, are , have extremes of body size, muscle mass, or nutritional status, or are non- or non-. According to the National Kidney Foundation, irrespective of diagnosis, the stage of the disease is based on the level of kidney function: Stage Description GFR(mL/min/1.73 m(2)) 1 Kidney damage with normal or decreased GFR 90 2 Kidney damage with mild decrease in GFR 60-89 3 Moderate decrease in GFR 30-59 4 Severe decrease in GFR 15-29 5 Kidney failure <15 (or dialysis) Procedures Date Code Description Status 03/01/2019 53650 Laparoscopy Unlisted Procedure, Stomach Completed 03/01/2019 46183 Laparoscopy Gastrostomy W/O Construction Of Gastric Tube Completed Medical Devices Description No Information Available Encounters Type Date Location Provider Dx Diagnosis Office Visit 05/16/2019 [facility] Nephrology Paul Chandler R80.9 Proteinuria, 11:00a MD [place] unspecified D63.1 Anemia in chronic kidney disease N17.9 Acute kidney failure, unspecified N18.4 Chronic kidney disease, stage 4 (severe) E87.70 Fluid overload, unspecified I10 Essential (primary) hypertension Office Visit 05/15/2019 1:00p [facility] Nephrology Paul Chandler I12.9 Hypertensive MD [place]le chronic kidney disease w stg 1-4/unsp chr kdny N17.9 Acute kidney failure, unspecified N18.4 Chronic kidney disease, stage 4 (severe) R53.83 Other fatigue K28.1 Acute gastrojejunal ulcer with perforation I10 Essential (primary) hypertension Office Visit 03/06/2019 11:58a [facility] I12.9 Hypertensive Assoc,lissa Alba MD chronic kidney Hospitalists disease w stg 1-4/unsp chr kdny N18.3 Chronic kidney disease, stage 3 (moderate) R60.0 Localized edema Office Visit 03/05/2019 11:58a [facility] I12.9 Hypertensive Asslissa jackson MD chronic kidney Hospitalists disease w stg 1-4/unsp chr kdny N18.3 Chronic kidney disease, stage 3 (moderate) Office Visit 03/04/2019 [facility] Xiomara Marti, D62 Acute 11:57a lissa Mcintosh M.D. posthemorrhagic Hospitalists anemia I12.9 Hypertensive chronic kidney disease w stg 1-4/unsp chr kdny N18.3 Chronic kidney disease, stage 3 (moderate) F41.9 Anxiety disorder, unspecified Office Visit 03/03/2019 [facility] Xiomara Figueroa, D62 Acute 11:57a lissa Mcintosh M.D. posthemorrhagic Hospitalists anemia I12.9 Hypertensive chronic kidney disease w stg 1-4/unsp chr kdny N18.3 Chronic kidney disease, stage 3 (moderate) F41.9 Anxiety disorder, unspecified Office Visit 03/02/2019 [facility] Buffy Marti, D62 Acute 11:57a lissa Mcintosh M.D. posthemorrhagic Hospitalists anemia N18.3 Chronic kidney disease, stage 3 (moderate) I12.9 Hypertensive chronic kidney disease w stg 1-4/unsp chr kdny F41.9 Anxiety disorder, unspecified Office Visit 03/01/2019 [facility] Xiomara Marti, N17.9 Acute kidney 11:56a lissa Mcintosh M.D. failure, Hospitalists unspecified I10 Essential (primary) hypertension Office Visit 03/01/2019 7:00a Surgical Guillermo Sesay, K28.1 [facility] , FACS ulcer with [employer] Super[employer] perforation Z98.84 Bariatric surgery status Office Visit 02/04/2019 10:45a [facility] Rashaun S67.21xD Crushing injury Orthopedics at [facility] of right hand, [place] subsequent encounter S62.640D Nondisp fx of prox phalanx of r idx fngr, 7thD Office Visit 01/28/2019 9:45a [facility] Rashaun S67.21xA [place] of right hand, initial encounter S62.640A Nondisp fx of proximal phalanx of right index finger, init S62.610A Disp fx of proximal phalanx of right index finger, init Assessments Date Code Description Provider 05/22/2019 K28.1 Acute gastrojejunal ulcer with Guillermo Sesay MD, FACS perforation 05/22/2019 Z98.84 Bariatric surgery status Guillermo Sesay MD, FACS 05/16/2019 R80.9 Proteinuria, unspecified Paul Corbett MD 05/16/2019 D63.1 Anemia in chronic kidney disease Paul Corbett MD 05/16/2019 N17.9 Acute kidney failure, unspecified Paul Corbett MD 05/16/2019 N18.4 Chronic kidney disease, stage 4 (severe) Paul Corbett MD 05/16/2019 E87.70 Fluid overload, unspecified Paul Corbett MD 05/16/2019 I10 Essential (primary) hypertension Paul Corbett MD 05/15/2019 I12.9 Hypertensive chronic kidney disease with Paul Corbett MD stage 1 through stage 4 chronic kidney disease, or unspecified chronic kidney disease 05/15/2019 N17.9 Acute kidney failure, unspecified Paul Corbett MD 05/15/2019 N18.4 Chronic kidney disease, stage 4 (severe) Paul Corbett MD 05/15/2019 R53.83 Other fatigue Paul Corbett MD 05/15/2019 K28.1 Acute gastrojejunal ulcer with Paul Corbett MD perforation 05/15/2019 I10 Essential (primary) hypertension Paul Corbett MD 04/25/2019 K28.1 Acute gastrojejunal ulcer with Magdi Johnson MD perforation 04/25/2019 R11.2 Nausea with vomiting, unspecified Magdi Johnson MD 04/25/2019 Z98.84 Bariatric surgery status Magdi Johnson MD 04/25/2019 N18.3 Chronic kidney disease, stage 3 Magdi Johnson MD (moderate) 04/25/2019 F41.9 Anxiety disorder, unspecified Magdi Johnson MD 04/21/2019 K28.1 Acute gastrojejunal ulcer with Guillermo Sesay MD, FACS perforation 04/21/2019 R11.2 Nausea with vomiting, unspecified Guillermo Sesay MD, FACS 04/21/2019 Z98.84 Bariatric surgery status Guillermo Sesay MD, FACS 03/24/2019 K28.1 Acute gastrojejunal ulcer with Guillermo Sesay MD, FACS perforation 03/13/2019 K28.1 Acute gastrojejunal ulcer with Guillermo Sesay MD, FACS perforation 03/13/2019 R60.0 Localized edema Guillermo Sesay MD, FACS 03/13/2019 Z98.84 Bariatric surgery status Guillemro Sesay MD, FACS 03/06/2019 K28.1 Acute gastrojejunal ulcer with DAIN Guillory perforation 03/06/2019 I12.9 Hypertensive chronic kidney disease with Mary Alba MD stage 1 through stage 4 chronic kidney disease, or unspecified chronic kidney disease 03/06/2019 N18.3 Chronic kidney disease, stage 3 Mary Alba MD (moderate) 03/06/2019 R60.0 Localized edema Mary Alba MD 03/05/2019 K28.1 Acute gastrojejunal ulcer with Rashaun Jackman PA-C perforation 03/05/2019 I12.9 Hypertensive chronic kidney disease with Mary Alba MD stage 1 through stage 4 chronic kidney disease, or unspecified chronic kidney disease 03/05/2019 N18.3 Chronic kidney disease, stage 3 Mary Alba MD (moderate) 03/04/2019 K28.1 Acute gastrojejunal ulcer with Guillermo Sesay MD, FACS perforation 03/04/2019 D62 Acute posthemorrhagic anemia Xiomara Marti M.D. 03/04/2019 I12.9 Hypertensive chronic kidney disease with Xiomara Marti M.D. stage 1 through stage 4 chronic kidney disease, or unspecified chronic kidney disease 03/04/2019 N18.3 Chronic kidney disease, stage 3 Xiomara Marti M.D. (moderate) 03/04/2019 F41.9 Anxiety disorder, unspecified Xiomara Marti M.D. 03/03/2019 K28.1 Acute gastrojejunal ulcer with Guillermo Sesay MD, FACS perforation 03/03/2019 D62 Acute posthemorrhagic anemia Xiomara Marti M.D. 03/03/2019 I12.9 Hypertensive chronic kidney disease with Xiomara Marti M.D. stage 1 through stage 4 chronic kidney disease, or unspecified chronic kidney disease 03/03/2019 N18.3 Chronic kidney disease, stage 3 Xiomara Marti M.D. (moderate) 03/03/2019 F41.9 Anxiety disorder, unspecified Xiomara Marti M.D. 03/02/2019 K28.1 Acute gastrojejunal ulcer with Guillermo Sesay MD, FACS perforation 03/02/2019 D62 Acute posthemorrhagic anemia Xiomara Marti M.D. 03/02/2019 N18.3 Chronic kidney disease, stage 3 Xiomara Marti M.D. (moderate) 03/02/2019 I12.9 Hypertensive chronic kidney disease with Xiomara Marti M.D. stage 1 through stage 4 chronic kidney disease, or unspecified chronic kidney disease 03/02/2019 F41.9 Anxiety disorder, unspecified Xiomara Marti M.D. 03/01/2019 K28.1 Acute gastrojejunal ulcer with Guillermo Sesay MD, FACS perforation 03/01/2019 N17.9 Acute kidney failure, unspecified Xiomara Marti M.D. 03/01/2019 Z98.84 Bariatric surgery status Guillermo Sesay MD, FACS 03/01/2019 I10 Essential (primary) hypertension Xiomara Marti M.D. 03/01/2019 K28.1 Acute gastrojejunal ulcer with Guillermo Sesay MD, FACS perforation 03/01/2019 Z98.84 Bariatric surgery status Guillermo Sesay MD, FACS 02/04/2019 S67.21xD Crushing injury of right hand, subsequent Rashaun Casanova MD encounter 02/04/2019 S62.640D Nondisplaced fracture of proximal phalanx Rashaun Casanova MD of right index finger, subsequent encounter for fracture with routine healing 01/28/2019 S67.21xA Crushing injury of right hand, initial Rashaun Casanova MD encounter 01/28/2019 S62.640A Nondisplaced fracture of proximal phalanx Rashaun Casanova MD of right index finger, initial encounter for closed fracture 01/28/2019 S62.610A Displaced fracture of proximal phalanx of Rashaun Casanova MD right index finger, initial encounter for closed fracture Plan of Treatment Future Appointment(s):05/27/2019 9:00 am - Paul Corbett MD at [facility] Gldirqyeyb71/27/2020 2:20 pm - Brayden Gaviria M.D. at [facility] Uyfinftl02/23/2020 - Guillermo Sesay MD, FACSK28.1 Acute gastrojejunal ulcer with perforationFollow up:As iqbqyvD60.84 Bariatric surgery statusReferral :[facility], Plastic Installer Functional Status Description No Information Available Mental Status Description No Information Available Referrals Refer to Reason for Referral Status Appt Date [facility] alf f/u of gastric bypass. Created surgery in 2006 at [place]. [address] [place] [address] [phone] Brayden Gaviria MD Positive HIV Sent [address] [place] [address] [place] [address] [phone] Magdi Johnson MD s/p gastric bypass in [facility] s/p Closed 2018 repair of perf'd marginal ulcer with G-tube placement; N/V EGD [address] [place] [address] [phone] [facility] Closed [address] [place] [address] [phone]
--- OUTSIDE RECORDS SUMMARY | 2019-06-10 16:07 | XMS REPORT | Continuity of Care Document ---
:1970 External Reference #:[id number] Author Name Magdi Johnson MD (transmitted by agent of provider Teresa Tiwari) Address [address] [place] [address] Care Team Providers Name Role Phone Mariela Holder MD - Internal Medicine Care Team Information Staff Certified Nurse Midwife Problems Active Problems Provider Date Crushing injury of hand Rashaun Casanova MD Onset: 01/28/2019 Nondisplaced fracture of proximal phalanx of Rashaun Casanova MD Onset: 2018 right index finger, initial encounter for closed fracture Social History Type Date Description Comments Sex Unknown Tobacco Use Start: Unknown End: Former Cigarette Smoker Unknown Smoking Status Reviewed: 04/25/19 Former Cigarette Smoker ETOH Use Denies alcohol use Tobacco Use Start: Unknown End: Patient is a former quit Unknown smoker 02/22/19Document: 03/13/19 - .Nurse GS Recreational Drug Use Sporadically uses pain and anxiety Marijuana managementDocument: 03/13/19 - History GS Exercise Type/Frequency Exercises regularly Allergies, Adverse Reactions, Alerts Active Allergies Reaction Severity Comments Date Sulfalene 01/28/2019 Medications Active Medications SIG Qnty Indications Ordering Date Provider Percocet 1 - 2 tabs by Unknown 5-325mg Tablets mouth every 4 - 6 hours as needed for pain. Lorazepam Take One Tablet Unknown 1mg Tablets By Mouth Every 6 Hours as Needed For Anxiety Maximum Daily Dose Of 4 Tablets Per Day Carvedilol Take 1 Tablet By Unknown 6.25mg Tablets Mouth Every 12 Hours Furosemide Take 1 Tablet By Unknown 40mg Tablets Mouth Every Day If Weight Up More Than 5 Pounds Take An Extra Tablet Hydroxyzine HCL Take 1 Tablet By Unknown 25mg Tablets Mouth Every Day After Dinner Loratadine Take 1 Tablet By Unknown 10mg Tablets Mouth Every Day Butalbital/Acetaminophen Take One Tablet Unknown /Caffeine By Mouth Every 6 50-325-40mg Tablets Hours as Needed For Pain Cyclobenzaprine HCL Take 1 Tablet By Unknown 10mg Mouth Three Times Tablets Daily as Needed For Muscle Spasms Pantoprazole Sodium Take 1 Tablet By Unknown 40mg Mouth Two Times Tablets DR Daily Albuterol Sulfate HFA Inhale 2 Puffs By Unknown Mouth Every 6 108(90Base) mcg/Act Hours as Needed Aerosol For Wheezing Zolpidem Tartrate Take 1 Tablet By Unknown 10mg Mouth AT Bedtime Tablets as Needed Insomnia - Maximum Daily Dose 1 Tablet History Medications Tramadol HCL 1-2 tablets by 30tabs Rashaun Casanova MD 01/31/2019 - Unknown 50mg mouth every 6 Tablets hours as needed pain Immunizations Description No Information Available Vital Signs Date Vital Result Comment 04/25/2019 11:02am Height 71 inches 5'11" Weight 195.00 lb Heart Rate 85 /min BP Systolic 190 mmHg having Gtube site pain BP Diastolic 115 mmHg having Gtube site pain O2 % BldC Oximetry 95 % BMI (Body Mass Index) 27.2 kg/m2 04/21/2019 11:01am Weight 185.00 lb Heart Rate 76 /min BP Systolic 150 mmHg BP Diastolic 90 mmHg Respiratory Rate 16 /min Body Temperature 96.9 F Results Description No Information Available Procedures Date Code Description Status 03/01/2019 67487 Laparoscopy Unlisted Procedure, Stomach Completed 03/01/2019 36494 Laparoscopy Gastrostomy W/O Construction Of Gastric Tube Completed Medical Devices Description No Information Available Encounters Type Date Location Provider Dx Diagnosis Office Visit 03/06/2019 [facility] [place], I12.9 Hypertensive 11:58a lissa Mcintosh MD chronic kidney Hospitalists disease w stg 1-4/unsp chr kdny N18.3 Chronic kidney disease, stage 3 (moderate) R60.0 Localized edema Office Visit 03/05/2019 11:58a [facility] Mary I12.9 Hypertensive lissa Mcintosh MD chronic kidney Hospitalists disease w stg 1-4/unsp chr kdny N18.3 Chronic kidney disease, stage 3 (moderate) Office Visit 03/04/2019 [facility] Xiomara Marti, D62 Acute 11:57a lissa Mcintosh M.D. posthemorrhagic Hospitalists anemia I12.9 Hypertensive chronic kidney disease w stg 1-4/unsp chr kdny N18.3 Chronic kidney disease, stage 3 (moderate) F41.9 Anxiety disorder, unspecified Office Visit 03/03/2019 [facility] Xiomara Marti, D62 Acute 11:57a lissa Mcintosh M.D. posthemorrhagic Hospitalists anemia I12.9 Hypertensive chronic kidney disease w stg 1-4/unsp chr kdny N18.3 Chronic kidney disease, stage 3 (moderate) F41.9 Anxiety disorder, unspecified Office Visit 03/02/2019 [facility] Xiomara Marti, D62 Acute 11:57a lissa Mcintosh M.D. posthemorrhagic Hospitalists anemia N18.3 Chronic kidney disease, stage 3 (moderate) I12.9 Hypertensive chronic kidney disease w stg 1-4/unsp chr kdny F41.9 Anxiety disorder, unspecified Office Visit 03/01/2019 [facility] Xiomara Marti, N17.9 Acute kidney 11:56a lissa Mcintosh M.D. failure, Hospitalists unspecified I10 Essential (primary) hypertension Office Visit 03/01/2019 7:00a Surgical Guillermo Sesay, K28.1 [facility] [place] ulcer with Quality Compliance Manager perforation Z98.84 Bariatric surgery status Office Visit 02/04/2019 10:45a [facility] S67.21xD Crushing injury Orthopedics at [facility] of right hand, [place] subsequent encounter S62.640D Nondisp fx of prox phalanx of r idx fngr, 7thD Office Visit 01/28/2019 9:45a [facility] Rashaun S67.21xA Crushing injury at [place] Casanova MD of right hand, initial encounter S62.640A Nondisp fx of proximal phalanx of right index finger, init S62.610A Disp fx of proximal phalanx of right index finger, init Assessments Date Code Description Provider 04/25/2019 K28.1 Acute gastrojejunal ulcer with Magdi [...] MD, FACS 03/13/2019 Z98.84 Bariatric surgery status Guillermo Sesay MD, FACS 03/06/2019 K28.1 Acute gastrojejunal [...] encounter for closed fracture Plan of Treatment 04/25/2019 - Magdi Johnson MDK28.1 Acute gastrojejunal ulcer with perforationNew Labs:Ferritin, Ordered: 04/25/19Iron & Iron Binding Capacity , Ordered: 04/25/19Vitamin B12, Ordered: 04/25/19R11.2 Nausea with vomiting, mnervuaweswF39.84 Bariatric surgery irkdcnZ16.3 Chronic kidney disease, stage 3 (moderate)F41.9 Anxiety disorder, unspecified Functional Status Description No Information Available Mental Status Description No Information Available Referrals Refer to Dr Reason for Referral Status Appt Date Magdi Johnson MD s/p gastric bypass in [place], [facility] s/p Sent 2018 repair of perf'd marginal ulcer with G-tube placement; N/V EGD [address] [place] [id number] [phone] [facility] Sent [address] [place] [address] [address] [place] [address] [phone]
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
--- OUTSIDE RECORDS SUMMARY | 2019-06-10 16:07 | XMS REPORT | Continuity of Care Document ---
:1970 External Reference #:[id number] Author Name Paul Corbett MD (transmitted by agent of provider Nayeli Coffey) Address [address] [place] [address] Care Team Providers Name Role Phone Mariela Holder MD - Internal Medicine Care Team Information Java Spring Developer Mariela Holder MD - Internal Medicine Care Team Information Java Spring Developer [phone] Problems Active Problems Provider Date Gastro-esophageal reflux disease with Magdi Johnson MD Onset: 04/25/2003 esophagitis Note: consult before prebariatric EGD in 2004 referred to [facility] for 2 yrs: History of bariatric surgical procedure Magdi Johnson MD Onset: 2006 Note: at [place]- preop weight 389 September 2004; Crushing injury [...] Onset: 01/08/2013 Note: admission to ICU and [place] [address] in 2012 Social History Type Date Description Comments Sex Unknown Tobacco Use Start: Unknown End: Former Cigarette Smoker Unknown Smoking Status Reviewed: 05/30/19 Former Cigarette Smoker ETOH Use Denies alcohol [...] Medications SIG Qnty Indications Ordering Date Provider Carvedilol 1 tab by mouth 60tabs Mohammad A. 05/30/2019 25mg Tablets twice a day MD Chelle Metolazone 1.25 mg (half 30tabs N18.4 Mohammad A. 05/30/2019 2.5mg Tablets tablet) twice a MD Chelle week on Sunday and Sunday Potassium Chloride ER 1 tab by mouth 30tabs N18.4 [facility]. 05/30/2019 20Meq daily MD Chelle Tablets ER Amlodipine Besylate 10 mg by mouth 90tabs Mohammad A. 05/16/2019 10mg daily at bedtime MD Chelle Tablets Hydralazine HCL take one by Unknown 100mg mouth three Tablets times daily Torsemide 1 by mouth PO 120tabs [facility]. 20mg Tablets bid MD Chelle Promethazine HCL take 1 by mouth Unknown 25mg every 8 hours as Tablets needed for nausea (take with ibuprofen and benadryl) Ferrous Fumarate take 1 capsule Unknown 324(106Fe) daily in the mg Tablets morning Klonopin 1 by mouth every Unknown 0.5mg Tablets day Zolpidem Tartrate Take 1 Tablet By Unknown 10mg Mouth AT Bedtime Tablets as Needed Insomnia - Maximum Daily Dose 1 Tablet Albuterol Sulfate HFA Inhale 2 Puffs Unknown By Mouth Every 6 108(90Base) mcg/Act Hours as Needed Aerosol For Wheezing Pantoprazole Sodium Take 1 Tablet By Unknown 40mg Mouth Two Times Tablets DR Daily Cyclobenzaprine HCL Take 1 Tablet By Unknown 10mg Mouth Three Tablets Times Daily as Needed For Muscle Spasms Loratadine Take 1 Tablet By Unknown 10mg Tablets Mouth Every Day Hydroxyzine HCL Take 1 Tablet By Unknown 25mg Mouth Every Day Tablets After Dinner Percocet 1 - 2 tabs by Unknown 5-325mg Tablets mouth every 4 - 6 hours as needed for pain. History Medications Carvedilol 1 tab by mouth 120tabs Paul Corbett, 05/16/2019 - 12.5mg twice a day 05/30/2019 Tablets Tramadol HCL 1-2 tablets by 30tabs Rashaun Casanova MD 01/31/2019 - Unknown 50mg mouth every 6 Tablets hours as needed pain Immunizations Description No Information Available Vital Signs Date Vital Result Comment 05/30/2019 11:37am Height 71 inches 5'11" 05/26/2019 2:31pm Height 71 inches 5'11" Weight 214.00 lb Heart Rate 92 /min BP Systolic Sitting 176 mmHg BP Diastolic Sitting 106 mmHg Respiratory Rate 14 /min Body Temperature 95.6 F O2 % BldC Oximetry 96 % BMI (Body Mass Index) 29.8 kg/m2 Results Test Acquired Date Facility Test Result H/L Range Note Laboratory test 05/29/2019 [facility] Albumin 2.5 g/dL Low 3.2 -5.[address] [place] [address] [phone] Hemoglobin A1c (Glyco HGB) 4.6 % Normal 4.0-5.6 1 Neph Routine 05/29/2019 [facility] Total Protein Random 624 mg/ dL [address] [place] [address] [phone] Creatinine Random Urine 45.43 mg/dL CBC Auto 05/29/2019 [facility] White Blood 8.9 10^3/uL Normal 3.5-10.[address] [place] [address] [phone] Red Blood Count 2.92 10^6/uL Low 4.18-5.48 Hemoglobin 8.6 g/dL Low 14.0-18.0 Hematocrit 26 % Low 42-52 Mean Corpuscular Volume 89 fL Normal 80-94 Mean Corpuscular Hemoglobin 29 pg Normal 27-31 Mean Corpuscular HGB Conc 33 g/dL Normal 31-36 Red Cell Distribution Width 18 % High 10-15 Platelet Count 639 10^3/uL High 150-450 Mean Platelet Volume 6.0 fL Low 7.4-10.4 Abs Neutrophils 7.7 10^3/uL Normal 1.5-7.7 Abs Lymphocytes 0.7 10^3/uL Low 1.0-4.8 Abs Monocytes 0.3 10^3/uL Normal 0-0.8 Abs Eosinophils 0.2 10^3/uL Normal 0-0.6 Abs Basophils 0.1 10^3/uL Normal 0-0.2 Abs Nucleated RBC 0.0 10^3/uL Granulocyte % 86.1 % Lymphocyte % 7.8 % Monocyte % 3.7 % Eosinophil % 1.8 % Basophil % 0.6 % Nucleated Red Blood Cells % 0.0 Basic Metabolic 05/29/2019 [facility] Sodium 136 mmol/L Normal 135-145 Panel [address] [place] [address] [phone] Potassium 3.3 mmol/L Low 3.5-5.0 Chloride 102 mmol/L Normal 101-111 Co2 Carbon Dioxide 22 mmol/L Normal 22-32 Anion Gap 12 mmol/L High 2-11 Glucose 80 mg/dL Normal 70-100 Blood Urea Nitrogen 56 mg/dL High 6-24 Creatinine 3.27 mg/dL High 0.67-1.17 BUN/Creatinine Ratio 17.1 Normal 8-20 Calcium 7.0 mg/dL Low 8.6-10.3 Egfr Non- 20.2 >60 Egfr 24.5 >60 2 Urinalysis Profile 05/29/2019 [facility] Urine Color Yellow [address] [place] [address] [phone] Urine Appearance Cloudy Urine Specific Oakley 1.013 Normal 1.010-1.030 Urine pH 5.0 Normal 5-9 Urine Urobilinogen Negative Negative Urine Ketones Negative Negative Urine Protein 2+(100 mg/dL) Abnormal Negative Urine Leukocytes Negative Negative Urine Blood 1+ Abnormal Negative Urine Nitrite Negative Negative Urine Bilirubin Negative Negative Urine Glucose 1+(50 mg/dL) Abnormal Negative Urine White Blood Cell Trace(0-5/hpf) Absent Urine Red Blood Cell 3+(>10/hpf) Abnormal Absent Urine Bacteria Absent Absent Iron & Iron Binding 05/29/2019 [facility] Iron 90 g/dL Normal 50-212 Capacity [address] [place] [address] [phone] Unsaturated Iron Binding < 198 g/dL Total Iron Binding Capacity 213 g/dL Low 250-450 Transferrin 152 mg/dL Low 203-362 % Iron Saturation 42 % Normal 15-55 Laboratory test 05/29/2019 [facility] Ferritin 79.4 ng/mL Normal 24-[address] [place] [address] [phone] B-Type Natriuretic Peptide BNP 427 pg/mL High <=100 Surgical 05/27/2019 [facility] Surgical SEE RESULT [address] [place] [address] [phone] PDFReport SEE IMAGE Cryoglobulin & 05/15/2019 [facility] Cryoglobulin Negative Negative [address] %[place] [address] [phone] Cryofibrinogen Negative Negative 5 [place]/Lambda Free 05/15/2019 [facility] [place] Free 29.1 mg/dL Abnormal 6 Light Chains Ser [address] [place] [address] [phone] Lambda Free Light Chain 19.4 mg/dL Abnormal 7 [place]/Lambda Free Light Chain 1.50 8 Protein 05/15/2019 [facility] Total 5.6 Abnormal 6.3 - Electrophoresis [address] Protein(Pep) g/dL 7.9 [place] [address] [phone] Albumin 2.0 g/dL Abnormal 3.4-4.7 Alpha-1 Globulin 0.3 g/dL 0.1-0.3 Alpha-2 Globulin 1.3 g/dL Abnormal 0.6-1.0 Beta Globulin 0.8 g/dL 0.7-1.2 Gamma Globulin 1.2 g/dL 0.6-1.6 Albumin/Globulin Ratio 0.56 Impression See Comment 9 Phospholipase A2 05/15/2019 [facility] Phospholipase A2 Negative Negative 10 Receptor AB [address] [place] [address] [phone] Phospholipase A2 ReceptorELISA <2 RU/mL 11 HIV 1&2 05/15/2019 [facility] HIV 4th Preliminary Abnormal Nonreactive [address] Generation Reac <[place] [address] NOTE> [phone] HIV-1 Ab Differentiation,P Negative Negative 13 HIV-2 Ab Differentiation,P Negative Negative 14 Urine Culture 05/15/2019 [facility] Urine SEE RESULT [address] [place] [address] [phone] Laboratory test 05/15/2019 [facility] Hemoglobin 4.9 % Normal 4.0-5.6 [address] A1c ([place] [address] HGB) [phone] HIV-1 Rna QNT 05/15/2019 [facility] HIV-1 Rna Undetected Undetected 17 By PCR Sli [address] (PCR) copies/[place] [address] [phone] Laboratory test 05/15/2019 [facility] B-Type 689 pg/mL High <= [address] [place] [address] Peptide BNP [phone] Hepatitis C 05/15/2019 [facility] HCV Index 0.06 s/c Antibody [address] [place], [place] [address] [phone] Hepatitis C Antibody Negative Negative Neutrophil Cytoplasmic 05/15/2019 [facility] C-Anca Negative Negative AB [address] [place] [address] [phone] P-Anca Negative Negative 18 GN Serology 05/15/2019 [facility] Anti Double Stranded <12.3 IU/ mL [address] [place] [address] [phone] Complement C3 105 mg/dL 75 - 175 20 Complement C4 24 mg/dL 14 - 40 21 Glomerular Basement Membrane <0.2 U 22 Anti Nuclear Antibody 0.2 U 23 Myeloperoxidase AB <0.2 U 24 Proteinase 3 <0.2 U 25 Hepatitis B Surface Ag Nonreactive Nonreactive Hepatitis B Core AB Total Negative Negative 26 Histone Antibody <pending> Rheumatoid Factor 15 IU/mL High <15 Erythrocyte Sed Rate > 120 mm/Hr High 0-14 C Reactive Protein 77.88 mg/L High <8.01 Hepatitis B Rosi AB Titer Not Immune Abnormal Immune Miscellaneous Test See Comment 27 Laboratory test 05/15/2019 [facility] Ferritin 121.1 Normal 24 -[address] ng/mL [place], [place] [address] [phone] Iron & Iron 05/15/2019 [facility] Total Iron 218 g/dL Low 250-[address] [place] [place] [address] Capacity [phone] Transferrin 156 mg/dL Low 203-362 Iron < 20 g/dL Low 50-212 Unsaturated Iron Binding < 203 g/dL % Iron Saturation 9 % Low 15-55 Urinalysis Profile 05/15/2019 [facility] Urine Color Yellow [address] [place] [address] [phone] Urine Appearance Clear Urine Specific Oakley 1.016 Normal 1.010-1.030 Urine pH 5.0 Normal [...] Urine Bacteria Absent Absent Basic Metabolic 05/15/2019 [facility] Sodium 137 mmol/L Normal 135-[address] [place] [address] [phone] Potassium 3.8 mmol/L Normal 3.5-5.0 Chloride 100 mmol/L Low 101-111 Co2 Carbon Dioxide 22 mmol/L Normal 22-32 Anion Gap 15 mmol/L High 2-11 Glucose 72 mg/dL Normal 70-100 Blood Urea Nitrogen 72 mg/dL High 6-24 Creatinine 3.80 mg/dL High 0.67-1.17 BUN/Creatinine Ratio 18.9 Normal 8-20 Calcium 7.3 mg/dL Low 8.6-10.3 Egfr Non- 17.0 >60 Egfr 20.6 >60 28 CBC Auto 05/15/2019 [facility] White Blood 17.1 10^3/uL High 3.5-10.[address] [place] [address] [phone] Red Blood Count 2.87 10^6/uL Low 4.18-5.48 [...] Blood Cells % 0.1 Neph Routine 05/15/2019 [facility] Total Protein Random 583 mg/ dL [address] [place] [address] [phone] Creatinine Random Urine 47.59 mg/dL Laboratory test 05/15/2019 [facility] Albumin 2.5 g/dL Low 3.2 -5.[address] [place] [address] [phone] CBC No Diff 04/25/2019 [facility] White Blood 13.7 High 3.5- 10.[address] Count 10^3/[place] [address] [phone] Red Blood Count 3.00 10^6/uL Low 4.18-5.48 [...] fL Low 7.4-10.4 Comp Metabolic Panel 04/25/2019 [facility] Sodium 132 mmol/L Low 135-[address] [place] [address] [phone] Potassium 3.3 mmol/L Low 3.5-5.0 Chloride 98 [...] Egfr Non- 20.0 >60 Egfr 24.2 >60 29 Laboratory test 04/25/2019 [facility] C Reactive 50.86 mg/L High <8.[address] [place] [address] [phone] Prealbumin 17 mg/dL Low 18-38 1 Therapeutic target for the treatment of diabetes mellitus patients is <7% HBA1C, and in selective patients <6.0%. Please refer to [place] [employer] diabetic care guidelines for further information. 2 Because ethnic data is not always [...] 5 Kidney failure <15 (or dialysis) 3 SEE RESULT BELOW Name: ROLLYMIMI Javon : [address]: Paul Corbett MD Acct: [id number] Unit: [id number] AGE: 48 Location: Re05/27/19 SEX: M Status: REG REF SPEC: [id number] ALBA: 05/27/19- [facility] DR: Paul Corbett MD REQ: [id number] RECD: 05/27/19 STATUS: SOUT _ ORDERED: PTH HANDLING CH, LEVEL 1, INTRAOP CON-GR FINAL DIAGNOSIS Kidney, left, biopsy: Pending diagnosis from [facility] Renal Pathology. CLINICAL HISTORY Chronic kidney disease, medullary sponge kidney PRE-OPERATIVE DIAGNOSIS Chronic kidney disease GROSS DESCRIPTION The specimen is received fresh labeled, Left Kidney, and consists of multiple marie-pink soft tissue cores ranging from 0.1 x 0.1 cm to 0.8 x 0.1 cm. The specimen is entirely submitted to [facility] for renal analysis. Per established hospital medical staff protocol, no tissue is submitted. Gross only. Signed by and Reported on: Malgorzata Leslie MD 05/27/19 1132 END OF REPORT DEPARTMENT OF PATHOLOGY, [address] [place] [address] Khurram Wallis M.D. Director [place] # [id number] 4 This test is negative at 24 hours. All samples are held and reviewed again at 7 days. If delayed precipitation occurs after 7 days, Immunofixation will be performed and an additional report will follow. 5 Test Performed by: [facility] [place] [address] Leadership Coach: Brandon Cuenca M.D. Ph.D.; CLIA# [id number] 6 REFERENCE VALUE 0.3300-1.94 7 REFERENCE VALUE 0.5700-2.63 8 REFERENCE VALUE 0.2600-1.65 Test Performed by: [facility] [place] [address] Leadership Coach: Brandon Cuenca M.D. Ph.D.; CLIA# [id number] 9 RESULT: No apparent monoclonal protein on serum electrophoresis. Test Performed by: [facility] [place] [address] Leadership Coach: Brandon Cuenca M.D. Ph.D.; CLIA# [id number] 10 ADDITIONAL INFORMATION This test was developed and its performance characteristics determined by [facility] in a manner consistent with CLIA requirements. This test has not been cleared or approved by the U.S. Food and Drug Administration. 11 REFERENCE VALUE <14 RU/mL: Negative 14-19 RU/mL: Borderline >19 RU/mL: Positive Test Performed by: [facility] - [facility] [address] [place] [address] Leadership Coach: Brandon Cuenca M.D. Ph.D.; CLIA# [id number] 12 Preliminary Reactive Specimen sent to [facility] for confirmatory testing. 13 Bands detected: None Negative result does not rule out HIV infection. Reflex testing for HIV-1 RNA detection and quantification is ordered. 14 Bands detected: None Negative result does not rule out HIV infection. Reflex testing for HIV-1 RNA detection and quantification is ordered. Test Performed by: [facility] - [facility] [address] [id number] Leadership Coach: Brandon Cuenca M.D. Ph.D.; CLIA# [id number] 15 SEE RESULT BELOW Name: MIMI LOFTON : [address]: Paul Corbett MD Acct: [id number] Unit: [id number] AGE: 48 Location: LAB Re05/15/19 SEX: M Status: REG REF SPEC: [id number] ALBA: 05/15/19-1446 [facility] DR: Paul Corbett MD REQ: [id number] RECD: 05/15/191508 STATUS: COMP _ SOURCE: URINE SPDESC: ORDERED: Urine Culture Procedure Result Reported Site Urine Culture Final 05/16/19- 1404 ML No Growth (<1,000 CFU/mL) * ML - Main Lab . END OF REPORT DEPARTMENT OF PATHOLOGY, [address] [place] [address] Khurram Wallis M.D. Director [facility] # [id number] 16 Therapeutic target for the treatment of diabetes mellitus patients is <7% HBA1C, and in selective patients <6.0%. Please refer to [place] [employer] diabetic care guidelines for further information. 17 Result in log copies/mL is Undetected. ADDITIONAL INFORMATION The quantification range of this assay is 20 to 10,000,000 copies/mL (1.30 log to 7.00 log copies/mL). Testing was performed using the shasta HIV-1 test ([employer] with the shasta 6800 System. This test has been modified from the renal medicine physician's instructions. Its performance characteristics were determined by [facility] in a manner consistent with CLIA requirements. This test has not been cleared or approved by the U.S. Food and Drug Administration. Test Performed by: [facility] - [facility] [address] [place] [address] Leadership Coach: Brandon Cuenca M.D. Ph.D.; CLIA# [id number] 18 Negative for cANCA and pANCA patterns by immunofluorescence. ADDITIONAL INFORMATION This test was developed and its performance characteristics determined by [facility] in a manner consistent with CLIA requirements. This test has not been cleared or approved by the U.S. Food and Drug Administration. Test Performed by: [facility] [place] [address] Leadership Coach: Brandon Cuenca M.D. Ph.D.; CLIA# [id number] 19 REFERENCE VALUE <30.0 (Negative) Test Performed by: [place] [address] Leadership Coach: Brandon Cuenca M.D. Ph.D.; CLIA# [id number] 20 Test Performed by: [place] [address] Leadership Coach: Brandon Cuenca M.D. Ph.D.; CLIA# [id number] 21 Test Performed by: [place] [address] Leadership Coach: Brandon Cuenca M.D. Ph.D.; CLIA# [id number] 22 REFERENCE VALUE <1.0 (Negative) Test Performed by: [place] [address] Leadership Coach: Brandon Cuenca M.D. Ph.D.; CLIA# [id number] 23 REFERENCE VALUE <=1.0 (Negative) Test Performed by: [facility] [place] [address] Leadership Coach: Brandon Cuenca M.D. Ph.D.; CLIA# [id number] 24 REFERENCE VALUE <0.4 (Negative) Test Performed by: [facility] [place] [address] Leadership Coach: Brandon Cuenca M.D. Ph.D.; CLIA# [id number] 25 REFERENCE VALUE <0.4 (Negative) Test Performed by: [facility] [place] [address] Leadership Coach: Brandon Cuenca M.D. Ph.D.; CLIA# [id number] 26 Test Performed by: [place] [address] Leadership Coach: Brandon Cuenca M.D. Ph.D.; CLIA# [id number] 27 Antihistone Antibodies Result Flag Units Ref Interval Test Report Date 05/20/2019 1505 ET Anti-histone Abs 0.7 Units 0.0-0.9 Negative <1.0 Weak Positive 1.0-1.5 Moderate Positive 1.6-2.5 Strong Positive >2.5 Performed at [address] [address] Dir: Marlin Gerard MD 28 Because ethnic data is not always readily [...] 15-29 5 Kidney failure <15 (or dialysis) 29 Because ethnic data is not always readily [...] dialysis) Procedures Date Code Description Status 03/01/2019 98359 Laparoscopy Unlisted Procedure, Stomach Completed 03/01/2019 39060 Laparoscopy Gastrostomy W/O Construction Of Gastric Tube Completed Medical Devices Description No Information Available Encounters Type Date Location Provider Dx Diagnosis Office Visit 05/30/2019 [facility]rology Paul Corbett, N18.4 Chronic kidney 11:00a MD disease, stage 4 (severe) N04.1 Nephrotic syndrome w focal and segmental glomerular lesions Office Visit 05/26/2019 2:20p [facility] Brayden Aguilar R80.9 Proteinuria, For Infectious Ronnie Gaviria unspecified Diseases R76.8 Other specified abnormal immunological findings in serum Office Visit 05/16/2019 11:00a [facility] Nephrology Paul Chandler R80.9 Proteinuria, MD Chelle unspecified D63.1 Anemia in chronic kidney disease N17.9 Acute kidney failure, unspecified N18.4 Chronic kidney disease, stage 4 (severe) E87.70 Fluid overload, unspecified I10 Essential (primary) hypertension Office Visit 05/15/2019 1:00p [facility] Nephrology Paul Chandler I12.9 Hypertensive MD Chelle chronic kidney disease w stg 1-4/unsp chr kdny N17.9 Acute kidney failure, unspecified N18.4 Chronic kidney disease, stage 4 (severe) R53.83 Other fatigue K28.1 Acute gastrojejunal ulcer with perforation I10 Essential (primary) hypertension Office Visit 04/25/2019 [facility]astro[facility]ology Magdi Nicholson K28.1 Acute 10:30a MD Alex gastrojejunal ulcer with perforation R11.2 Nausea with vomiting, unspecified Z98.84 Bariatric surgery status N18.3 Chronic kidney disease, stage 3 (moderate) F41.9 Anxiety disorder, unspecified Office Visit 03/06/2019 11:58a [facility] I12.9 Hypertensive Assoclissa MD chronic kidney Hospitalists disease w stg 1-4/unsp chr kdny N18.3 Chronic kidney disease, stage 3 (moderate) R60.0 Localized edema Office Visit 03/05/2019 11:58a [facility] I12.9 Hypertensive Assoclissa MD chronic kidney Hospitalists disease w stg 1-4/unsp chr kdny N18.3 Chronic kidney disease, stage 3 (moderate) [facility] Acute 11:57a lissa Mcintosh M.D. posthemorrhagic Hospitalists anemia I12.9 Hypertensive chronic kidney disease w stg 1-4/unsp chr kdny N18.3 Chronic kidney disease, stage 3 (moderate) F41.9 Anxiety disorder, unspecified [facility] D[facility] Acute 11:57a lissa Mcintosh M.D. posthemorrhagic Hospitalists anemia I12.9 Hypertensive chronic kidney disease w stg 1-4/unsp chr kdny N18.3 Chronic kidney disease, stage 3 (moderate) F41.9 Anxiety disorder, unspecified Office Visit 03/02/2019 [facility] Marti, D62 Acute 11:57a lissa Mcintosh M.D. posthemorrhagic Hospitalists anemia N18.3 Chronic kidney disease, stage 3 (moderate) I12.9 Hypertensive chronic kidney disease w stg 1-4/unsp chr kdny F41.9 Anxiety disorder, unspecified Office Visit 03/01/2019 [facility] Xiomara Marti, N17.9 Acute kidney 11:56a Asslissa jackson M.D. failure, Hospitalists unspecified I10 Essential (primary) hypertension Office Visit 03/01/2019 7:00a Surgical Guillermo Sesay, K28.1 [facility] , FACS ulcer with Cdl Program Coordinator perforation Z98.84 Bariatric surgery status Office Visit 02/04/2019 10:45a L[facility] Rodney S67.21xD Crushing injury Orthopedics at [facility] [place] of right hand, [place] subsequent encounter S62.640D Nondisp fx of prox phalanx of r idx fngr, 7thD Office Visit 01/28/2019 9:45a [facility] Rashaun S67.21xA Crushing injury at [place] [facility] [place] of right hand, initial encounter S62.640A Nondisp fx of proximal phalanx of right index finger, init S62.610A Disp fx of proximal phalanx of right index finger, init Assessments Date Code Description Provider 05/30/2019 N18.4 Chronic kidney disease, stage 4 Paul Corbett MD (severe) 05/30/2019 N04.1 Nephrotic syndrome with focal and Paul Corbett MD segmental glomerular lesions 05/26/2019 R80.9 Proteinuria, unspecified Brayden Gaviria M.D. 05/26/2019 R76.8 Other specified abnormal immunological Brayden Gaviria M.D. findings in serum 05/22/2019 K28.1 Acute gastrojejunal ulcer with Guillermo Sesay MD, FACS perforation 05/22/2019 Z98.84 Bariatric surgery status Guillermo Sesay MD, FACS 05/16/2019 R80.9 Proteinuria, unspecified Paul Corbett MD 05/16/2019 D63.1 Anemia in chronic kidney disease Paul Corbett MD 05/16/2019 N17.9 Acute kidney failure, unspecified Paul Corbett MD 05/16/2019 N18.4 Chronic kidney disease, stage 4 Paul Corbett MD (severe) 05/16/2019 E87.70 Fluid overload, unspecified Paul Corbett MD 05/16/2019 I10 Essential (primary) hypertension Paul Corbett MD 05/15/2019 I12.9 Hypertensive chronic kidney disease Paul Corbett MD with stage 1 through stage 4 chronic kidney disease, or unspecified chronic kidney disease 05/15/2019 N17.9 Acute kidney failure, unspecified Paul Corbett MD 05/15/2019 N18.4 Chronic kidney disease, stage 4 Paul Corbett MD (severe) 05/15/2019 R53.83 Other fatigue Paul Corbett MD [...] FACS 03/06/2019 K28.1 Acute gastrojejunal ulcer with Mars Beltrán PA perforation 03/06/2019 I12.9 Hypertensive chronic kidney disease Mary Alba MD with stage 1 through stage 4 chronic kidney disease, or unspecified chronic kidney disease 03/06/2019 N18.3 Chronic kidney disease, stage 3 Mary Alba MD (moderate) 03/06/2019 R60.0 Localized edema Mary Alba MD 03/05/2019 K28.1 Acute gastrojejunal ulcer with DAIN Carrasco-C perforation 03/05/2019 I12.9 Hypertensive chronic kidney disease Mary Alba MD with stage 1 through stage 4 chronic kidney disease, or unspecified chronic kidney disease 03/05/2019 N18.3 Chronic kidney disease, stage 3 Mary Alba MD (moderate) 03/04/2019 K28.1 Acute gastrojejunal ulcer with Guillermo Sesay MD, FACS perforation 03/04/2019 D62 Acute posthemorrhagic anemia Xiomara Marti M.D. 03/04/2019 I12.9 Hypertensive chronic kidney disease Xiomara Marti M.D. with stage 1 through stage 4 chronic kidney disease, or unspecified chronic kidney disease 03/04/2019 N18.3 Chronic kidney disease, stage 3 Xiomara Marti M.D. (moderate) 03/04/2019 F41.9 Anxiety disorder, unspecified Xiomara Marti M.D. 03/03/2019 K28.1 Acute gastrojejunal ulcer with Guillermo Sesay MD, FACS perforation 03/03/2019 D62 Acute posthemorrhagic anemia Xiomara Marti M.D. 03/03/2019 I12.9 Hypertensive chronic kidney disease Xiomara Marti M.D. with stage 1 through stage 4 chronic kidney [...] (moderate) 03/02/2019 I12.9 Hypertensive chronic kidney disease Xiomara Marti M.D. with stage 1 through stage 4 chronic kidney [...] 02/04/2019 S67.21xD Crushing injury of right hand, Rashaun Casanova MD subsequent encounter 02/04/2019 S62.640D Nondisplaced fracture of proximal Rashaun Casanova MD phalanx of right index finger, subsequent encounter for fracture with routine healing 01/28/2019 S67.21xA Crushing injury of right hand, initial Rashaun Casanova MD encounter 01/28/2019 S62.640A Nondisplaced fracture of proximal Rashaun Casanova MD phalanx of right index finger, initial encounter for closed fracture 01/28/2019 S62.610A Displaced fracture of proximal phalanx Rashaun Casanova MD of right index finger, initial encounter for closed fracture Plan of Treatment Future Appointment(s):06/13/2019 11:00 am - Paul Corbett MD at [facility] Ebcuplblhz72/31/2020 - Paul Corbett MDN18.4 Chronic kidney disease, stage 4 (severe)New Medication:Metolazone 2.5 mg - 1.25 mg (half tablet) twice a week on Sunday and SundayPotassium Chloride ER 20 Meq - 1 tab by mouth dailyComments: Start fluid pill booster Metolazone 1.25 mg twice a week on Sunday and SundayCut down water to less than 60 Oz dailyIncrease Carvedilol 25 mg twice dailyAdd potassium dailyI want you to call the dialysis class to schedule oneWill give an anemia injectionFollow up:2 week f/u with labsN04.1 Nephrotic syndrome with focal and segmental glomerular lesions Functional Status Description No Information Available Mental Status Description No Information Available Referrals Refer to Reason for Referral Status Appt Date [facility] oil heaterman f/u of gastric bypass. Scheduled 06/18/2019 surgery in 2006 at [place]. [address] [facility] [facility] [address] [place] [address] [phone] Brayden Gaviria MD Positive HIV Sent [address] [place] [address] [place] [id number] [phone] Magdi Johnson MD s/p gastric bypass in [place], [facility] s/p Closed 2018 repair of perf'd marginal ulcer with G-tube placement; N/V EGD [address] [place] [address] [phone] [facility] Closed [address] [facility] [address] [place] [address] [phone]
--- OUTSIDE RECORDS SUMMARY | 2019-06-10 16:07 | XMS REPORT | Continuity of Care Document ---
:1970 External Reference #:[id number] Author Name Guillermo Sesay MD, FACS (transmitted by agent of provider Katya Vaughan) Address [address] [place] [address] Care Team Providers Name Role Phone Mariela Holder MD - Internal Medicine Care Team Information Referral And Information Aide [phone] Problems Active Problems Provider Date Crushing injury of hand Rashaun Casanova MD Onset: 01/28/2019 Nondisplaced fracture of proximal phalanx of Rashaun Casanova MD Onset: 2018 right index finger, initial encounter for closed fracture Social History Type Date Description Comments Sex Unknown ETOH Use Denies alcohol use Tobacco Use Start: Unknown End: Patient is a former quit Unknown smoker 02/22/19Document: 03/13/19 - .Nurse GS Recreational Drug Use Sporadically uses pain and anxiety Marijuana managementDocument: 03/13/19 - History Smoking Status Reviewed: 04/21/19 Patient is a former quit smoker 02/22/19Document: 03/13/19 - .Nurse GS Exercise Type/Frequency Exercises regularly Allergies, Adverse [...] Available Vital Signs Date Vital Result Comment 04/21/2019 11:01am Weight 185.00 lb Heart Rate 76 /min BP Systolic 150 mmHg BP Diastolic 90 mmHg Respiratory Rate 16 /min Body Temperature 96.9 F 03/24/2019 11:32am Heart Rate 72 /min BP Systolic Sitting 150 mmHg just took medication BP Diastolic Sitting 100 mmHg just took medication Respiratory Rate 12 /min Body Temperature 97.1 F Results Description No Information Available Procedures Date Code Description Status 03/01/2019 94013 Laparoscopy Unlisted Procedure, Stomach Completed 03/01/2019 73882 Laparoscopy Gastrostomy W/O Construction Of Gastric Tube Completed Medical Devices Description No Information Available Encounters Type Date Location Provider Dx Diagnosis Office Visit 03/06/2019 [place] Buffy Alba, I12.9 Hypertensive 11:58a lissa Mcintosh MD chronic kidney Hospitalists disease w stg 1-4/unsp chr kdny N18.3 Chronic kidney disease, stage 3 (moderate) R60.0 Localized edema Office Visit 03/05/2019 11:58a [place] Buffy Hernandez I12.9 Hypertensive lissa Mcintosh MD chronic kidney Hospitalists disease w stg 1-4/unsp chr kdny N18.3 Chronic kidney disease, stage 3 (moderate) Office Visit 03/04/2019 [place] Buffy Solano Figueroa, D62 Acute 11:57a lissa Mcintosh M.D. posthemorrhagic Hospitalists anemia I12.9 Hypertensive chronic kidney disease w stg 1-4/unsp chr kdny N18.3 Chronic kidney disease, stage 3 (moderate) F41.9 Anxiety disorder, unspecified Office Visit 03/03/2019 [facility] Xiomara Marti, D62 Acute 11:57a lissa Mcintosh M.D. posthemorrhagic Hospitalists anemia I12.9 Hypertensive chronic kidney disease w stg 1-4/unsp chr kdny N18.3 Chronic kidney disease, stage 3 (moderate) F41.9 Anxiety disorder, unspecified Office Visit 03/02/2019 [facility] Xiomara Marti, D62 Acute 11:57a lissa Mcintosh M.D. posthemorrhagic Hospitalists anemia N18.3 Chronic kidney disease, stage 3 (moderate) I12.9 Hypertensive chronic kidney disease w stg 1-4/unsp chr kdny F41.9 Anxiety disorder, unspecified Office Visit 03/01/2019 [facility] Xiomara Marti, N17.9 Acute kidney 11:56a lissa Mcintosh M.D. failure, Hospitalists unspecified I10 Essential (primary) hypertension Office Visit 03/01/2019 7:00a Surgical Guillermo Sesay, K28.1 [facility] , FACS ulcer with Chief Security And Safety Officer perforation Z98.84 Bariatric surgery status Office Visit 02/04/2019 10:45a [place] Rashaun S67.21xD Crushing injury [facility]oped[facility] at [facility] [place] of right hand, [place] subsequent encounter S62.640D Nondisp fx of prox phalanx of r idx fngr, 7thD Office Visit 01/28/2019 9:45a [facility] Rashaun S67.21xA Crushing injury at [place] Casanova MD of right hand, initial encounter S62.640A Nondisp fx of proximal phalanx of right index finger, init S62.610A Disp fx of proximal phalanx of right index finger, init Assessments Date Code Description Provider 04/21/2019 K28.1 Acute gastrojejunal ulcer with Guillermo [...] 03/06/2019 I12.9 Hypertensive chronic kidney disease with Mayr Alba MD stage 1 through stage 4 chronic kidney disease, or unspecified chronic kidney disease 03/06/2019 N18.3 Chronic kidney disease, stage 3 Mary Alba MD (moderate) 03/06/2019 R60.0 Localized edema Mary Alba MD 03/05/2019 K28.1 Acute gastrojejunal ulcer with DAIN Carrasco-Marianne perforation 03/05/2019 I12.9 Hypertensive chronic kidney disease [...] encounter for closed fracture Plan of Treatment 04/21/2019 - Guillermo Sesay MD, FACSK28.1 Acute gastrojejunal ulcer with perforationReferral:Magdi Johnson MD, YqzvfqjuyqthqndqO31.2 Nausea with vomiting, kqbdifceuyfE07.84 Bariatric surgery status Functional Status Description No Information Available Mental Status Description No Information Available Referrals Refer to Dr Reason for Referral Status Appt Date Magdi Johnson MD s/p gastric bypass in [place], [facility] s/p Sent repair of perf'd marginal ulcer with G-tube placement; N/V [facility] [address] [place] [address] [phone] [facility] Sent [address] [place] [address] [phone]
--- OUTSIDE RECORDS SUMMARY | 2019-06-10 16:07 | XMS REPORT | Continuity of Care Document ---
:1970 External Reference #:[id number] Author Name Paul oCrbett MD (transmitted by agent of provider Nayeli Coffey) Address [address] [place] [address] Care Team Providers Name Role Phone Mariela Holder MD - Internal Medicine Care Team Information Physical Sciences Instructor Problems Active Problems Provider Date Gastro-esophageal reflux disease with Magdi Johnson MD Onset: 04/25/2003 esophagitis Note: consult before prebariatric EGD in 2004 referred to [facility] for 2 yrs: History of bariatric surgical procedure Magdi Johnson MD Onset: 2006 Note: at [place]- preop weight 389 September 2004; Crushing injury of hand Rashaun Casanova MD Onset: 01/28/2019 Nondisplaced fracture of proximal phalanx of Rashaun Casanova MD Onset: 2018 right index finger, initial encounter for closed fracture Chronic renal failure Magdi Johsnon MD Onset: 04/25/2018 Note: 3+ dipstick proteinuria February 2019; Cr 1.Mar and 2.February; failed renal Bx summer 2018 Anxiety state Magdi Johnson MD Onset: 01/08/2013 Note: admission to ICU and [place] [address] in 2012 Social History Type Date Description Comments Sex Unknown Tobacco Use Start: Unknown End: Former Cigarette Smoker Unknown Smoking Status Reviewed: 05/15/19 Former Cigarette Smoker ETOH Use Denies alcohol [...] - 6 hours as needed for pain. Carvedilol Take 1 Tablet By Unknown 6.25mg Tablets Mouth Every 12 Hours Hydroxyzine HCL Take 1 Tablet By Unknown [...] by mouth every Unknown 0.5mg Tablets day History Medications Tramadol HCL 1-2 tablets by [...] Mass Index) 27.2 kg/m2 Results Test Acquired Date Facility Test Result H/L Range Note CBC No Diff 04/25/2019 [facility] White Blood 13.7 10^3/uL High 3.5-10.[address] [place] [address] [phone] Red Blood Count 3.00 10^6/uL Low 4.18-5.48 [...] fL Low 7.4-10.4 Comp Metabolic Panel 04/25/2019 [facility] Sodium 132 mmol/L Low 135-[address] [place] [address] [phone] Potassium 3.3 mmol/L Low 3.5-5.0 Chloride 98 [...] Egfr Non- 20.0 >60 Egfr 24.2 >60 1 Laboratory test 04/25/2019 [facility] C Reactive 50.86 mg/L High <8.[address] [place] [address] [phone] Prealbumin 17 mg/dL Low 18-38 1 Because ethnic data is not always readily [...] dialysis) Procedures Date Code Description Status 03/01/2019 94205 Laparoscopy Unlisted Procedure, Stomach Completed 03/01/2019 20668 Laparoscopy Gastrostomy W/O Construction Of Gastric Tube Completed Medical Devices Description No Information Available Encounters Type Date Location Provider Dx Diagnosis Office Visit 03/06/2019 [place] Buffy Alba, I12.9 Hypertensive 11:58a lissa Mcintosh MD chronic kidney Hospitalists disease w stg 1-4/unsp chr kdny N18.3 Chronic kidney disease, stage 3 (moderate) R60.0 Localized edema Office Visit 03/05/2019 11:58a [place] Buffy Hernandez I12.9 Hypertensive lissa Mcintosh MD chronic kidney Hospitalists disease w stg 1-4/unsp chr kdny N18.3 Chronic kidney disease, stage 3 (moderate) Office Visit 03/04/2019 [facility] Xiomara Marti, D62 Acute 11:57a lissa Mcintosh M.D. posthemorrhagic Hospitalists anemia I12.9 Hypertensive chronic kidney disease w stg 1-4/unsp chr kdny N18.3 Chronic kidney disease, stage 3 (moderate) F41.9 Anxiety disorder, unspecified Office Visit 03/03/2019 [facility] Xiomara Marti, D62 Acute 11:57a lissa Mcintosh M.D. posthemorrhagic Hospitalists anemia I12.9 Hypertensive chronic kidney disease w stg 1-4/unsp chr kdny N18.3 Chronic kidney disease, stage 3 (moderate) F41.9 Anxiety disorder, unspecified Office Visit 03/02/2019 [facility] Xiomara Marti, D62 Acute 11:57a lissa Mcintosh M.D. posthemorrhagic Hospitalists anemia N18.3 Chronic kidney disease, stage 3 (moderate) I12.9 Hypertensive chronic kidney disease w stg 1-4/unsp chr kdny F41.9 Anxiety disorder, unspecified Office Visit 03/01/2019 [facility] Xiomarayonatan Marti, N17.9 Acute kidney 11:56a lissa Mcintosh M.D. failure, Hospitalists unspecified I10 Essential (primary) hypertension Office Visit 03/01/2019 7:00a Surgical Guillermo Sesay, K28.1 [facility] [place] ulcer with Contract Designer perforation Z98.84 Bariatric surgery status Office Visit 02/04/2019 10:45a [place] Rashaun S67.21xD Crushing injury Orthopedics at [facility] [place] of right hand, [place] subsequent encounter S62.640D Nondisp fx of prox phalanx of r idx fngr, 7thD Office Visit 01/28/2019 9:45a [facility] Rashaun S67.21xA Crushing injury at [place] of right hand, initial encounter S62.640A Nondisp fx of proximal phalanx of right index finger, init S62.610A Disp fx of proximal phalanx of right index finger, init Assessments Date Code Description Provider 05/15/2019 N18.4 Chronic kidney disease, stage 4 (severe) Paul Corbett MD 05/15/2019 N17.9 Acute kidney failure, unspecified Paul Corbett MD 05/15/2019 K28.1 Acute gastrojejunal ulcer with Paul Corbett MD perforation 05/15/2019 I10 Essential (primary) hypertension Paul Corbett MD 04/25/2019 K28.1 Acute gastrojejunal ulcer with Magdi Johnson MD perforation 04/25/2019 R11.2 Nausea with vomiting, unspecified Magdi Johnson MD 04/25/2019 Z98.84 Bariatric surgery status Magdi Johnson MD 04/25/2019 N18.3 Chronic kidney disease, stage 3 Magid Johnson MD (moderate) 04/25/2019 F41.9 Anxiety disorder, [...] for closed fracture Plan of Treatment Future Appointment(s):05/16/2019 11:00 am - Paul Corbett MD at [facility] Mskernuqny61/16/2020 - Paul Corbett MDN18.4 Chronic kidney disease, stage 4 (severe)New Labs:Albumin, Ordered: 05/15/19Neph Routine, Ordered: Iron & Iron Binding Capacity, Ordered: 05/15/19Ferritin, Ordered: GN Serology, Ordered: 05/15/19Follow up:wsdwyaacK49.9 Acute kidney failure, lacmnxkodyvD16.1 Acute gastrojejunal ulcer with nivqlejbtxpM05 Essential ( primary) hypertension Functional Status Description No Information Available Mental Status Description No Information Available Referrals Refer to Dr Reason for Referral Status Appt Date Magdi Johnson MD s/p gastric bypass in [place], [facility] s/p Closed 2018 repair of perf'd marginal ulcer with G-tube placement; N/V [facility] [address] [facility] [place] [address] [phone] [facility] Closed [address] [facility] [address] [place] [address] [phone]
[2019-06-10 17:15] LABS: ABS Basophils 0.1 10^3/ul (0-0.2); ABS Eosinophils 0.4 10^3/ul (0-0.6); ABS Lymphocytes 0.9 10^3/ul (1.0-4.8); ABS Monocytes 0.5 10^3/ul (0-0.8); ABS Neutrophils 7.6 10^3/ul (1.5-7.7); Eosinophil % 4.2 %; Hematocrit 24 % (42-52); Hemoglobin 8.1 g/dL (14.0-18.0); Lymphocyte % 9.4 %; Mean Corpuscular HGB Conc 34 g/dL (31-36); Mean Corpuscular Hemoglobin 30 pg (27-31); Mean Corpuscular Volume 89 fL (80-94); Mean Platelet Volume 6.4 fL (7.4-10.4); Platelet Count 373 10^3/uL (150-450); Red Blood Count 2.69 10^6 /uL (4.18-5.48); Red Cell Distribution Width 18 % (10-15); White Blood Count 9.5 10^3/uL (3.5-10.8)
[2019-06-10 17:27] LABS: Albumin 2.5 g/dL (3.2-5.2); Albumin/Globulin Ratio 0.7 (1-3); Calcium 6.5 mg/dL (8.6-10.3); EGFR African American 20.8 (>60); EGFR Non-African American 17.2 (>60); Globulin 3.4 g/dL (2-4); Potassium 3.9 mmol/L (3.5-5.0); Total Bilirubin 0.3 mg/dL (0.2-1.0); Total Protein 5.9 g/dL (6.4-8.9)
--- NOTE | 2019-06-10 17:50 | ED ---
Complex/Multi-Sys Presentation - HPI Summary HPI Summary: Patient with history of chronic bilateral lower extremity edema complains of fluid gain around the abdomen. History of CK D stage IV. Not currently on dialysis. Patient went to have interview concerning approaching dialysis, and was advised to come to the ED for evaluation of abdominal fluid gain. Denies fever, cough, sore throat, CP, SOB, N/V/D, abdominal pain, change in urine, change in BM, orthopnea. States he has intermittent abdominal fluid gain, and that it is actually decreasing today versus past 2 days[address] [employer] Dr. Corbett. - History Of Current Complaint Chief Complaint: EDGeneral Time Seen by Provider: 06/10/19 17:38 Hx Obtained From: Patient Onset/Duration: Gradual Onset, Lasting Days Timing: Constant Severity Currently: Moderate Severity Initially: Moderate - Allergies/Home Medications Allergies/Adverse Reactions: Allergies Allergy/AdvReac Type Severity Reaction Status Date / Time Sulfa (Sulfonamide Allergy Anaphylatic Verified 06/11/19 17:21 Antibiotics) Shock PMH/Surg Hx/FS Hx/Imm Hx Endocrine/Hematology History: Reports: Hx Anemia Denies: Hx Anticoagulant Therapy, Hx Blood Disorders, Hx Blood Transfusions, Hx Bone Marrow Disease, Hx Diabetes, Hx Systemic Lupus Erythematosus, Hx Sickle Cell Disease, Hx Thyroid Disease, Hx Unexplained Bleeding, Other Endocrine/ Hematological Disorders Cardiovascular History: Reports: Hx Hypertension - on meds, Other Cardiovascular Problems/Disorders - LE edema of unknown cause Respiratory History: Reports: Hx Asthma Denies: Hx Chronic Bronchitis, Hx Chronic Obstructive Pulmonary Disease (COPD ), Hx Cystic Fibrosis, Hx Lung Cancer, Hx Pleural Effusion, Hx Pneumonia, Hx Pulmonary Edema, Hx Pulmonary Embolism, Hx Seasonal Allergies, Hx Sleep Apnea, Other Respiratory Problems/Disorders GI History: Reports: Hx Gall Bladder Disease - cholecystectomy 2006, Hx Gastroesophageal Reflux Disease, Hx Irritable Bowel - from gastric bypass, Other GI Disorders - gall bladder removal, gastric bypass Denies: Hx Cirrhosis, Hx Crohn's Disease, Hx Diverticulosis, Hx Gastrointestinal Bleed, Hx Hiatal Hernia, Hx Jaundice, Hx Obstructive Bowel, Hx Ileostomy, Hx Pyloric Stenosis, Hx Ulcer History: Reports: Hx Kidney Stones Denies: Hx Acute Renal Failure, Hx Benign Prostatic Hyperplasia, Hx Chronic Renal Failure, Hx Dialysis, Hx Kidney Infection, Other Problems/Disorders Musculoskeletal History: Reports: Hx Arthritis - knees, hips, and joints, Hx Back Problems - lower and upper back pain Denies: Hx Bursitis, Hx Congenital Bone Abnormalities, Hx Fibromyalgia, Hx Gout, Hx Orthopedic Injury, Hx Osteoporosis, Hx Scoliosis, Hx Tendonitis Sensory History: Reports: Hx Contacts or Glasses, Other Sensory Impairments Denies: Hx Cataracts, Hx Eye Injury, Hx Eye Prosthesis, Hx Glaucoma, Hx Legally Blind, Hx Macular Degeneration, Hx Vision Problem, Hx Deafness, Hx Hearing Aid, Hx Hearing Problem Opthamlomology History: Reports: Hx Contacts or Glasses, Other Sensory Impairments Denies: Hx Cataracts, Hx Eye Injury, Hx Eye Prosthesis, Hx Glaucoma, Hx Legally Blind, Hx Macular Degeneration, Hx Vision Problem EENT History: Denies: Hx Deafness Neurological History: Reports: Hx Headaches, Hx Migraine Denies: Hx Dementia, Hx Developmental Delay, Hx Nerve Disease, Hx Seizures, Hx Spinal Cord Injury, Hx Transient Ischemic Attacks (TIA), Other Neuro Impairments/Disorders Psychiatric History: Reports: Hx Anxiety - on lorazepam, Other Psychiatric Issues/Disorders - opiate dependence, physician rx'd Denies: Hx Attention Deficit Hyperactivity Disorder, Hx Eating Disorder, Hx Depression, Hx Panic Disorder, Hx Post Traumatic Stress Disorder, Hx Inpatient Treatment, Hx Community Mental Health Tx, Hx Schizophrenia, Hx Bipolar Disorder , Hx Suicide Attempt, Hx of Violent Episodes Against Others, Hx Substance Abuse - Surgical History Surgery Procedure, Year, and Place: 1999-left knee mcl/acl reconstruction, L femur surgery. [id number]- multiple kidney stone procedures. 2006-gastric bypass + cholecystectomy Hx Anesthesia Reactions: No Infectious Disease History: No Infectious Disease History: Denies: Hx Hepatitis, Hx Tuberculosis, History Other Infectious Disease, Traveled Outside the [place] in Last 30 Days - Family History Known Family History: Positive: Cardiac Disease, Hypertension, Renal Disease - Social History Alcohol Use: None Substance Use Type: Reports: Prescribed Substance Use Comment - Amount & Last Used: percocet Smoking Status (MU): Former Smoker Type: Cigarettes Amount Used/How Often: 1/2 - 1 ppd Have You Smoked in the Last Year: Yes Review of Systems Constitutional: Negative Eyes: Negative ENT: Negative Cardiovascular: Negative Respiratory: Negative Gastrointestinal: Negative Genitourinary: Negative Musculoskeletal: Negative Skin: Other Neurological/Mental Status: Negative Psychological: Normal All Other Systems Reviewed And Are Negative: Yes Physical Exam - Summary Physical Exam Summary: Bilateral lower extremity edema. Positive distended abdomen. Soft nontender. Lung sounds clear to auscultation bilaterally. Triage Information Reviewed: Yes Vital Signs On Initial Exam: Initial Vitals Temp Pulse Resp BP Pulse Ox 97.9 F 74 18 162/100 94 06/10/19 15:51 06/10/19 15:51 06/10/19 15:51 06/10/19 15:51 06/10/19 15:51 Vital Signs Reviewed: Yes Appearance: Positive: Well-Appearing Skin: Positive: Warm Head/Face: Positive: Normal Head/Face Inspection Eyes: Positive: Normal Neck: Positive: Supple Respiratory/Lung Sounds: Positive: Clear to Auscultation Cardiovascular: Positive: Normal Abdomen Description: Positive: Nontender Musculoskeletal: Positive: Normal Neurological: Positive: Normal Psychiatric: Positive: Normal AVPU Assessment: Alert - Artur Coma Scale Best Eye Response: 4 - Spontaneous Best Motor Response: 6 - Obeys Commands Best Verbal Response: 5 - Oriented Coma Scale Total: 15 Procedures - Sedation Patient Received Moderate/Deep Sedation with Procedure: No Diagnostics - Vital Signs Vital Signs Temp Pulse Resp BP Pulse Ox 06/10/19 15:51 97.9 F 74 18 162/100 94 - Laboratory Lab Results: Lab Results 06/10/19 06/10/19 Range/Units 17:00 17:00 WBC 9.5 (3.5-10.8) 10^3/uL RBC 2.69 L (4.18-5.48) 10^6 /uL Hgb 8.1 L (14.0-18.0) g/dL Hct 24 L (42-52) % MCV 89 (80-94) fL MCH 30 (27-31) pg MCHC 34 (31-36) g/dL RDW 18 H (10-15) % Plt Count 373 (150-450) 10^3/uL MPV 6.4 L (7.4-10.4) fL Neut % (Auto) 80.2 % Lymph % (Auto) 9.4 % Gilliam % (Auto) 5.6 % Eos % (Auto) 4.2 % Baso % (Auto) 0.6 % Absolute Neuts (auto) 7.6 (1.5-7.7) 10^3/ul Absolute Lymphs (auto) 0.9 L (1.0-4.8) 10^3/ul Absolute Monos (auto) 0.5 (0-0.8) 10^3/ul Absolute Eos (auto) 0.4 (0-0.6) 10^3/ul Absolute Basos (auto) 0.1 (0-0.2) 10^3/ul Absolute Nucleated RBC 0.0 10^3/ul Nucleated RBC % 0.0 Sodium 134 L (135-145) mmol/L Potassium 3.9 (3.5-5.0) mmol/L Chloride 100 L (101-111) mmol/L Carbon Dioxide 22 (22-32) mmol/L Anion Gap 12 H (2-11) mmol/L BUN 64 H (6-24) mg/dL Creatinine 3.77 H (0.67-1.17) mg/dL Est GFR ( Amer) 20.8 (>60) Est GFR (Non-Af Amer) 17.2 (>60) BUN/Creatinine Ratio 17.0 (8-20) Glucose 83 (70-100) mg/dL Calcium 6.5 L (8.6-10.3) mg/dL Magnesium 2.0 (1.9-2.7) mg/dL Total Bilirubin 0.30 (0.2-1.0) mg/dL AST 15 (13-39) U/L ALT 9 (7-52) U/L Alkaline Phosphatase 61 (34-104) U/L Total Protein 5.9 L (6.4-8.9) g/dL Albumin 2.5 L (3.2-5.2) g/dL Globulin 3.4 (2-4) g/dL Albumin/Globulin Ratio 0.7 L (1-3) Result Diagrams: 06/10/19 17:00 06/10/19 17:00 Lab Statement: Any lab studies that have been ordered have been reviewed, and results considered in the medical decision making process. Complex Multi-Symp Course/Dx Course Of Treatment: Patient with history of chronic bilateral lower extremity edema complains of fluid gain around the abdomen. History of CK D stage IV. Not currently on dialysis. Patient went to have interview concerning approaching dialysis, and was advised to come to the ED for evaluation of abdominal fluid gain. Denies fever, cough, sore throat, CP, SOB, N/V/D, abdominal pain, change in urine, change in BM, orthopnea. States he has intermittent abdominal fluid gain, and that it is actually decreasing today versus past 2 days. [employer] Dr. Corbett. Vital signs within normal limits. Labs unremarkable. Chest x-ray negative. 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 Patient will follow up in clinic this week with Dr. Corbett - Diagnoses Provider Diagnoses: Abdominal edema on examination, Leg edema, CKD (chronic kidney disease), stage IV Discharge ED - Sign-Out/Discharge Documenting (check all that apply): Patient Departure - Discharge Plan Condition: Stable Disposition: HOME Prescriptions: Torsemide TAB* [Demadex 20 MG*] 60 mg PO BID 5 Days #30 tab Patient Education Materials: Leg Edema (ED), Edema (ED) Referrals: Mariela Holder MD [Primary Care Provider] - Additional Instructions: Take torsemide 60 mg twice a day until you follow up this week with your butter liquefier Dr. Corbett. Return to the ED for any worsening symptoms. - Billing Disposition and Condition Condition: STABLE Disposition: Home
[2019-06-10] MEDS: Furosemide IV* 10 MG/ML VIAL (40 MG) IV SLOW PU ONE (19:05)
[2019-06-10 20:10] VITALS: BP 175/107
== END 2019-06-10 20:09 | disposition home or self-care (01) ==
LOC: ED 15:48
DX: R60.0 Localized edema (principal); I12.9 Hypertensive chronic kidney disease with stage 1 through stage 4 chronic kidney disease, or unspecified chronic kidney disease; N18.4 Chronic kidney disease, stage 4 (severe); D63.1 Anemia in chronic kidney disease; J45.909 Unspecified asthma, uncomplicated; K21.9 Gastro-esophageal reflux disease without esophagitis; F41.9 Anxiety disorder, unspecified; Z98.84 Bariatric surgery status; Z90.49 Acquired absence of other specified parts of digestive tract; Z87.891 Personal history of nicotine dependence; Z79.899 Other long term (current) drug therapy; Z88.2 Allergy status to sulfonamides
CPT/HCPCS: 36415; 71045; 80053; 83735; 85025; 93005; 96374; 99283; J1940

== ENCOUNTER 2020-09-14 11:45 | Observation (INO) ==
[2020-09-14] MEDS ORDERED: Piperacillin/Tazobac ADVAN 3.375 GM in NS 0.9% 100 ml BAG 100 ML IV ONE (12:33)
[2020-09-14] MEDS ORDERED: Vancomycin 1,000 MG in NS 0.9% 250 ml 250 ML IVPB ONE (12:42)
[2020-09-14] MEDS ORDERED: NS 0.9% 1000 ml BAG 1,000 ML IV SCH (12:45)
[2020-09-14] MEDS ORDERED: Vancomycin 1,000 MG in NS 0.9% 250 ml 250 ML IV ONE (13:09)
[2020-09-14] MEDS ORDERED: Gentamicin ADULT 160 MG in NS 0.9% 100 ml BAG 100 ML IVPB ONE (13:10)
[2020-09-14 13:38] LABS: ABS Lymphocytes 0.4 10^3/ul (1.0-4.8); ABS Monocytes 0.4 10^3/ul (0-0.8); ABS Neutrophils 16.6 10^3/ul (1.5-7.7); Eosinophil % 0.1 %; Hematocrit 32 % (42-52); Hemoglobin 10.7 g/dL (14.0-18.0); Lymphocyte % 2.3 %; Mean Corpuscular HGB Conc 34 g/dL (31-36); Mean Corpuscular Hemoglobin 33 pg (27-31); Mean Corpuscular Volume 96 fL (80-94); Mean Platelet Volume 8.2 fL (7.4-10.4); Platelet Count 261 10^3/uL (150-450); Red Cell Distribution Width 14 % (10-15); White Blood Count 17.4 10^3/uL (3.5-10.8)
[2020-09-14] MEDS ORDERED: Iodixanol (CONTRAST) 320 MG/ML 100 ML SDV IV ONE (14:17)
[2020-09-14 14:19] LABS: ALT 12 U/L (7-52); Albumin 2.1 g/dL (3.2-5.2); Albumin/Globulin Ratio 0.6 (1-3); Alkaline Phosphatase 104 U/L (34-104); Blood Urea Nitrogen 38 mg/dL (6-24); CO2 Carbon Dioxide 28 mmol/L (22-32); Calcium 7.4 mg/dL (8.6-10.3); Chloride 85 mmol/L (101-111); EGFR African American 15.4 (>60); EGFR Non-African American 12.8 (>60); Globulin 3.3 g/dL (2-4); Glucose 87 mg/dL (70-100); Lipase 48 U/L (11.0-82.0); Magnesium 2.1 mg/dL (1.9-2.7); Sodium 124 mmol/L (135-145); Total Protein 5.4 g/dL (6.4-8.9)
[2020-09-14 14:22] LABS: Anion Gap 11 mmol/L (2-11)
[2020-09-14] MEDS ORDERED: Morphine 4 MG/ML VIAL (1 ml) IV ONE (15:35)
[2020-09-14] MEDS ORDERED: Albuterol HFA INHALER 8 gm MDI INH PRN (16:49)
[2020-09-14] MEDS: fentaNYL 100 mcg/2 ml 50 MCG/ML VIAL IV SLOW PU PRN (20:27)
[2020-09-15 05:55] LABS: Hematocrit 26 % (42-52); Hemoglobin 8.7 g/dL (14.0-18.0); Mean Corpuscular HGB Conc 34 g/dL (31-36); Mean Corpuscular Hemoglobin 33 pg (27-31); Mean Corpuscular Volume 96 fL (80-94); Mean Platelet Volume 7.9 fL (7.4-10.4); Platelet Count 191 10^3/uL (150-450); Red Blood Count 2.69 10^6 /uL (4.18-5.48); Red Cell Distribution Width 14 % (10-15); White Blood Count 18.8 10^3/uL (3.5-10.8)
[2020-09-15 06:22] LABS: Calcium 6.9 mg/dL (8.6-10.3); EGFR African American 14.2 (>60); EGFR Non-African American 11.7 (>60); Potassium 4.3 mmol/L (3.5-5.0)
[2020-09-15 07:23] LABS: C Reactive Protein 155.76 mg/L (<8.01)
[2020-09-15 07:49] LABS: Folate 8.78 ng/mL (5.90-24.80)
[2020-09-15 08:36] VITALS: BP 103/72
[2020-09-15] MEDS: fentaNYL 100 mcg/2 ml 50 MCG/ML VIAL IV SLOW PU PRN (08:52)
== END 2020-09-15 13:45 | disposition home or self-care (01) ==
LOC: ED 11:45 → INTOOBSV 16:34 → MEDTELE 16:34
PROVIDERS: ADMIT Internal Medicine; ATTEND Internal Medicine